=== PATIENT | male | born 1960 | race Caucasian/White ===

== ENCOUNTER 2021-11-02 15:12 | Inpatient (IN) | payer OTHER ==
[~2021-11-02] VITALS: Ht 175.3 cm; Wt 77.1 kg
[2021-11-02 15:12] VITALS: BP 105/63
[2021-11-02] MEDS ORDERED: FUROSEMIDE 40 MG/4 ML VIAL IVP ONE (15:40)
[2021-11-02 16:08] LABS: BASOPHILS % (AUTO) 0.4 % (0.0-2.0); EOSINOPHILS % (AUTO) 0.5 % (0.0-4.0); HEMATOCRIT 26.6 % (36-52); HEMOGLOBIN 8.5 g/dL (12.0-18.0); LYMPHOCYTES # (AUTO) 0.6 K/uL (2.0-11.5); LYMPHOCYTES % (AUTO) 9.9 % (20.5-51.1); MEAN CORPUSCULAR HEMOGLOBIN 25 pg (27-31); MEAN CORPUSCULAR HGB CONC 32 g/dL (33-37); MEAN CORPUSCULAR VOLUME 77.6 fL (80-94); MONOCYTES # (AUTO) 0.6 K/uL (0.8-1.0); NEUTROPHILS # (AUTO) 4.6 K/uL (1.8-7.7); NEUTROPHILS % (AUTO) 79.2 % (42.2-75.2); PLATELET COUNT (AUTO) 67 K/uL (140-450); RED BLOOD CELL COUNT(AUTO) 3.43 MIL/uL (4.20-6.10); RED CELL DISTRIBUTION WIDTH 21.6 % (11.6-13.7); WHITE BLOOD COUNT (AUTO) 5.7 K/uL (4.8-10.8)
[2021-11-02 16:37] LABS: ALBUMIN 2.2 g/dL (3.4-5.0); ANION GAP 11.6 (8-16); CARBON DIOXIDE 26.1 mmol/L (21-32); CREATININE 0.7 mg/dL (0.6-1.3); POTASSIUM 3.7 mmol/L (3.5-5.1); TOTAL BILIRUBIN 1.5 mg/dL (0.0-1.0)
[2021-11-02] MEDS ORDERED: METF-350 PO (19:04)
[2021-11-02] MEDS ORDERED: CLOP75TA55 PO (19:05)
[2021-11-02] MEDS ORDERED: LOSA100T1 PO (19:05)
[2021-11-02] MEDS ORDERED: DOCUSATE SODIUM 100 MG GELCAP PO PRN (19:25)
[2021-11-02] MEDS ORDERED: ZOLPIDEM 5 MG TAB PO PRN (19:25)
[2021-11-02] MEDS ORDERED: guaiFENesin DM 200/20 MG-10 ML 10 ML UDC PO PRN (19:25)
[2021-11-02] MEDS ORDERED: ONDANSETRON 4 MG/2 ML VIAL IM/IVP PRN (19:25)
[2021-11-02] MEDS ORDERED: ACETAMINOPHEN 325 MG TAB PO PRN (19:25)
[2021-11-02 19:55] LABS: CHOL/HDL RATIO 3.1 (1-4.5); FREE T4 (FREE THYROXINE) 1.1 ng/dL (0.76-1.46); MAGNESIUM 1.2 mg/dL (1.8-2.4); THYROID STIMULATING HORMONE 7.6 uIU/mL (0.34-3.74)
[2021-11-02 21:06] LABS: PROTHROMBIN TIME 13.9 secs (10.8-13.4)
[2021-11-02] MEDS: FUROSEMIDE 20 MG/2 ML VIAL IVP SCH (21:45)
[2021-11-02] MEDS: HYDROcodone/APAP 7.5/325 MG 1 TAB PO PRN (21:46)
[2021-11-03] VITALS (11 sets, daily range): BP systolic 90–109; BP diastolic 54–67
[2021-11-03 04:09] LABS: APPEARANCE,URINE CLEAR (CLEAR); BILIRUBIN,URINE NEGATIVE (NEGATIVE); BLOOD, URINE 1+ (NEGATIVE); COLOR,URINE YELLOW (YELLOW); LEUKOCYTE ESTERASE ,URINE NEGATIVE (NEGATIVE); NITRITE, URINE NEGATIVE (NEGATIVE); PH,URINE 5.5 (5.0-9.0); UGLUCOSE NEGATIVE (NEGATIVE)
[2021-11-03 04:20] LABS: BARBITURATE, URINE NEGATIVE ng/ml (NEG <=200); BENZODIAZEPINE, URINE NEGATIVE ng/mL (NEG <=200); CANNABINOID, URINE NEGATIVE ng/mL (NEG <=50); COCAINE, URINE NEGATIVE ng/mL (NEG <=300); OPIATE, URINE POSITIVE ng/mL (NEG <=2000); PHENCYCLIDINE SCREEN,URINE NEGATIVE ng/mL (NEG <=25)
[2021-11-03 04:23] LABS: RBC,URINE 0-5 /HPF (0-5); WBC,URINE 0-5 /HPF (0-5)
[2021-11-03 07:16] LABS: BASOPHILS % (AUTO) 0.6 % (0.0-2.0); EOSINOPHILS # (AUTO) 0.1 K/uL (0-0.4); HEMATOCRIT 25.4 % (36-52); HEMOGLOBIN 7.9 g/dL (12.0-18.0); LYMPHOCYTES # (AUTO) 0.5 K/uL (2.0-11.5); LYMPHOCYTES % (AUTO) 12.9 % (20.5-51.1); MEAN CORPUSCULAR HEMOGLOBIN 25 pg (27-31); MEAN CORPUSCULAR HGB CONC 31 g/dL (33-37); MEAN CORPUSCULAR VOLUME 79.1 fL (80-94); MONOCYTES # (AUTO) 0.4 K/uL (0.8-1.0); MONOCYTES % (AUTO) 10.9 % (1.7-9.3); NEUTROPHILS # (AUTO) 2.7 K/uL (1.8-7.7); NEUTROPHILS % (AUTO) 73.6 % (42.2-75.2); PLATELET COUNT (AUTO) 62 K/uL (140-450); RED BLOOD CELL COUNT(AUTO) 3.21 MIL/uL (4.20-6.10); RED CELL DISTRIBUTION WIDTH 22.2 % (11.6-13.7); WHITE BLOOD COUNT (AUTO) 3.7 K/uL (4.8-10.8)
[2021-11-03 08:16] LABS: ANION GAP 13.3 (8-16); CARBON DIOXIDE 28.2 mmol/L (21-32); CREATININE 0.6 mg/dL (0.6-1.3); POTASSIUM 3.5 mmol/L (3.5-5.1)
[2021-11-03] MEDS: HYDROcodone/APAP 7.5/325 MG 1 TAB PO PRN ×2 (09:40→20:20)
[2021-11-03] MEDS: FUROSEMIDE 20 MG/2 ML VIAL IVP SCH ×2 (09:41→20:20)
[2021-11-03] MEDS: PANTOPRAZOLE 40 MG TABEC PO SCH (09:41)
[2021-11-03] MEDS ORDERED: DEXTROSE 50% 50 ML SYR IVP PRN (19:40)
[2021-11-03] MEDS: BLOOD GLUCOSE MONITORING 1 DEV DEV FS SCH (21:03)
[2021-11-03 23:59] LABS: GLUCOSE,BODY FLUID 118 mg/dL
[2021-11-04] VITALS: BP 92/63
[2021-11-04 00:12] LABS: ALBUMIN,BODY FLUID 0.7 g/dL; LDH,BODY FLUID 47 U/L
[2021-11-04 00:18] LABS: APPEARANCE,SPUN,BODY FLUID CLEAR (CLEAR); APPEARANCE,UNSPUN,BODY FLUID CLEAR (CLEAR); COLOR,BODY FLUID LT YELLOW (LT YELLOW)
[2021-11-04 00:26] LABS: TOTAL VOLUME,BODY FLUID 8400 mL
[2021-11-04 00:48] LABS: RBC, BODY FLUID 1742 /cu. mm.; WBC, BODY FLUID 35 /cu. mm.
[2021-11-04 00:49] LABS: POLYNUCLEAR, BODY FLUID 70 %
[2021-11-04 00:50] LABS: LIPASE,BODY FLUID < 6 U/L
[2021-11-04 04:00] VITALS: BP 105/70
[2021-11-04 06:55] LABS: BASOPHILS % (AUTO) 0.6 % (0.0-2.0); EOSINOPHILS # (AUTO) 0.1 K/uL (0-0.4); EOSINOPHILS % (AUTO) 2.7 % (0.0-4.0); HEMATOCRIT 26.7 % (36-52); HEMOGLOBIN 8.4 g/dL (12.0-18.0); LYMPHOCYTES # (AUTO) 0.6 K/uL (2.0-11.5); LYMPHOCYTES % (AUTO) 21.4 % (20.5-51.1); MEAN CORPUSCULAR HEMOGLOBIN 25 pg (27-31); MEAN CORPUSCULAR HGB CONC 31 g/dL (33-37); MONOCYTES # (AUTO) 0.4 K/uL (0.8-1.0); MONOCYTES % (AUTO) 13.8 % (1.7-9.3); NEUTROPHILS # (AUTO) 1.6 K/uL (1.8-7.7); NEUTROPHILS % (AUTO) 61.5 % (42.2-75.2); PLATELET COUNT (AUTO) 54 K/uL (140-450); RED BLOOD CELL COUNT(AUTO) 3.38 MIL/uL (4.20-6.10); RED CELL DISTRIBUTION WIDTH 21.5 % (11.6-13.7); WHITE BLOOD COUNT (AUTO) 2.7 K/uL (4.8-10.8)
[2021-11-04 07:04] LABS: ANION GAP 9.4 (8-16); CARBON DIOXIDE 27.7 mmol/L (21-32); CREATININE 0.6 mg/dL (0.6-1.3); POTASSIUM 3.1 mmol/L (3.5-5.1)
[2021-11-04] MEDS: BLOOD GLUCOSE MONITORING 1 DEV DEV FS SCH ×3 (07:06→16:30)
[2021-11-04 08:00] VITALS: BP 108/69
[2021-11-04] MEDS: PANTOPRAZOLE 40 MG TABEC PO SCH (09:19)
[2021-11-04] MEDS: HYDROcodone/APAP 7.5/325 MG 1 TAB PO PRN ×2 (09:19→17:49)
[2021-11-04] MEDS: FUROSEMIDE 20 MG/2 ML VIAL IVP SCH ×2 (09:20→21:00)
[2021-11-04] MEDS: POTASSIUM CHLORIDE 10 MEQ TABER PO PRN (09:37)
[2021-11-04 11:36] VITALS: BP 104/62
[2021-11-04 18:00] VITALS: BP 90/55
[2021-11-04 20:00] VITALS: BP 90/54
[2021-11-05] VITALS: BP 112/64
[2021-11-05 04:00] VITALS: BP 108/64
[2021-11-05] MEDS: BLOOD GLUCOSE MONITORING 1 DEV DEV FS SCH ×3 (06:34→16:05)
[2021-11-05 07:09] LABS: ANION GAP 7.7 (8-16); CARBON DIOXIDE 30.6 mmol/L (21-32); CREATININE 0.6 mg/dL (0.6-1.3); POTASSIUM 3.3 mmol/L (3.5-5.1)
[2021-11-05 07:35] LABS: BASOPHILS % (AUTO) 0.7 % (0.0-2.0); EOSINOPHILS # (AUTO) 0.1 K/uL (0-0.4); LYMPHOCYTES # (AUTO) 0.7 K/uL (2.0-11.5); MEAN CORPUSCULAR HEMOGLOBIN 25 pg (27-31); MEAN CORPUSCULAR HGB CONC 31 g/dL (33-37); MEAN CORPUSCULAR VOLUME 79.3 fL (80-94); MONOCYTES # (AUTO) 0.3 K/uL (0.8-1.0); MONOCYTES % (AUTO) 14.7 % (1.7-9.3); NEUTROPHILS # (AUTO) 1.2 K/uL (1.8-7.7); NEUTROPHILS % (AUTO) 52.6 % (42.2-75.2); PLATELET COUNT (AUTO) 66 K/uL (140-450); RED BLOOD CELL COUNT(AUTO) 3.66 MIL/uL (4.20-6.10); WHITE BLOOD COUNT (AUTO) 2.4 K/uL (4.8-10.8)
[2021-11-05 08:00] VITALS: BP 113/72
[2021-11-05] MEDS: PANTOPRAZOLE 40 MG TABEC PO SCH (08:22)
[2021-11-05] MEDS: FUROSEMIDE 20 MG/2 ML VIAL IVP SCH ×2 (08:22→21:08)
[2021-11-05] MEDS: POTASSIUM CHLORIDE 10 MEQ TABER PO PRN (09:01)
[2021-11-05 12:00] VITALS: BP 121/77
[2021-11-05] MEDS: HYDROcodone/APAP 7.5/325 MG 1 TAB PO PRN (14:17)
[2021-11-05 20:00] VITALS: BP 105/74
[2021-11-06 04:00] VITALS: BP 107/69
[2021-11-06] MEDS: BLOOD GLUCOSE MONITORING 1 DEV DEV FS SCH ×2 (06:38→11:54)
[2021-11-06 06:48] LABS: ANION GAP 8.3 (8-16); CARBON DIOXIDE 31.9 mmol/L (21-32); CREATININE 0.7 mg/dL (0.6-1.3); POTASSIUM 3.2 mmol/L (3.5-5.1)
[2021-11-06 06:53] LABS: BASOPHILS % (AUTO) 0.8 % (0.0-2.0); EOSINOPHILS # (AUTO) 0.1 K/uL (0-0.4); EOSINOPHILS % (AUTO) 2.8 % (0.0-4.0); HEMATOCRIT 25.7 % (36-52); LYMPHOCYTES # (AUTO) 0.5 K/uL (2.0-11.5); LYMPHOCYTES % (AUTO) 26.8 % (20.5-51.1); MEAN CORPUSCULAR HEMOGLOBIN 25 pg (27-31); MEAN CORPUSCULAR HGB CONC 31 g/dL (33-37); MEAN CORPUSCULAR VOLUME 78.8 fL (80-94); MONOCYTES # (AUTO) 0.4 K/uL (0.8-1.0); MONOCYTES % (AUTO) 18.5 % (1.7-9.3); NEUTROPHILS % (AUTO) 51.1 % (42.2-75.2); PLATELET COUNT (AUTO) 58 K/uL (140-450); RED BLOOD CELL COUNT(AUTO) 3.26 MIL/uL (4.20-6.10); RED CELL DISTRIBUTION WIDTH 21.7 % (11.6-13.7)
[2021-11-06 06:58] LABS: WHITE BLOOD COUNT (AUTO) 1.9 K/uL (4.8-10.8)
[2021-11-06] MEDS: FUROSEMIDE 20 MG/2 ML VIAL IVP SCH ×2 (09:00→09:59)
[2021-11-06] MEDS: PANTOPRAZOLE 40 MG TABEC PO SCH (09:17)
[2021-11-06] MEDS: POTASSIUM CHLORIDE 10 MEQ TABER PO PRN (09:17)
[2021-11-06] MEDS ORDERED: FURO-570 PO ×2 (09:59→11:51)
[2021-11-06] MEDS ORDERED: FUROSEMIDE 40 MG TAB PO SCH ×2 (11:00→17:00)
[2021-11-06] MEDS: INSULIN LISPRO SLIDING SCALE 100 UNITS/ML VIAL SUBQ PRN ×2 (11:53→11:58)
[2021-11-06 12:00] VITALS: BP 105/67
[2021-11-06 14:14] VITALS: BP 105/67
== END 2021-11-06 16:25 | disposition home or self-care (01) | DRG 280 ==
LOC: MED 15:12 → MTU 19:09
PROVIDERS: ADMIT Family Medicine; ATTEND Family Medicine
PROC: 0W9G3ZZ Drainage of Peritoneal Cavity, Percutaneous Approach (ICD-10-PCS; principal; 2021-11-02)
DX: I11.0 Hypertensive heart disease with heart failure (principal); I21.4 Non-ST elevation (NSTEMI) myocardial infarction; I50.43 Acute on chronic combined systolic (congestive) and diastolic (congestive) heart failure; G93.41 Metabolic encephalopathy; E43 Unspecified severe protein-calorie malnutrition; R18.8 Other ascites; N39.0 Urinary tract infection, site not specified; E87.1 Hypo-osmolality and hyponatremia; D61.818 Other pancytopenia; Z20.822 Contact with and (suspected) exposure to COVID-19; F10.20 Alcohol dependence, uncomplicated; Y90.9 Presence of alcohol in blood, level not specified; K40.20 Bilateral inguinal hernia, without obstruction or gangrene, not specified as recurrent; E87.6 Hypokalemia; K74.60 Unspecified cirrhosis of liver; F17.200 Nicotine dependence, unspecified, uncomplicated; J44.9 Chronic obstructive pulmonary disease, unspecified; E78.5 Hyperlipidemia, unspecified; D63.8 Anemia in other chronic diseases classified elsewhere; Z79.84 Long term (current) use of oral hypoglycemic drugs; Z79.899 Other long term (current) drug therapy; Z68.25 Body mass index [BMI] 25.0-25.9, adult
CPT/HCPCS: 36415; 49083; 71045; 76700; 80048; 80053; 80305; 81001; 82150; 82945; 82948; 83036; 83615; 83690; 83735; 83880; 84100; 84157; 84436; 84439; 84443; 84479; 84484; 85025; 85610; 85730; 87070; 87075; 87081; 87205; 89051; 93005; 96374; 99285; J1940; J2001; Q0092; Q9967

== ENCOUNTER 2022-10-08 12:09 | Inpatient (IN) | payer OTHER ==
[~2022-10-08] VITALS: Ht 170.2 cm; Wt 73.5 kg
[~2022-10-08 12:09] MED LIST: FURO-570 PO
[2022-10-08 12:12] VITALS: BP 106/69
[2022-10-08] MEDS ORDERED: ALBUTEROL 0.083% 2.5 MG/3 ML NEBU INH ONE (12:20)
[2022-10-08] MEDS ORDERED: methylPREDNISolone SS 125 MG/2 ML VIAL IVP ONE (12:20)
[2022-10-08] MEDS ORDERED: IPRATROPIUM 0.02% 0.5 MG/2.5 ML NEBU INH ONE (12:20)
[2022-10-08] MEDS ORDERED: FUROSEMIDE 40 MG/4 ML VIAL IVP ONE (12:20)
--- NOTE | 2022-10-08 12:30 | NUR ---
[facility] THERAPY AND RESPIRATORY DRUGS GIVEN ORDERED
[2022-10-08 13:10] VITALS: BP 111/66
[2022-10-08 13:30] LABS: ALBUMIN 1.9 g/dL (3.4-5.0); ANION GAP 7.4 (8-16); CREATININE 0.7 mg/dL (0.6-1.3); POTASSIUM 3.4 mmol/L (3.5-5.1); TOTAL BILIRUBIN 5.2 mg/dL (0.0-1.0)
[2022-10-08] MEDS ORDERED: KCL 20 MEQ IN 100 mL PREMIX 200 ML IV ONE (13:40)
[2022-10-08 13:49] LABS: PROTHROMBIN TIME 13.6 secs (10.8-13.4)
[2022-10-08 13:53] LABS: BASOPHILS % (AUTO) 1.3 % (0.0-2.0); EOSINOPHILS # (AUTO) 0.1 K/uL (0-0.4); EOSINOPHILS % (AUTO) 2.8 % (0.0-4.0); HEMATOCRIT 26.5 % (36-52); HEMOGLOBIN 8.8 g/dL (12.0-18.0); LYMPHOCYTES # (AUTO) 0.6 K/uL (2.0-11.5); MEAN CORPUSCULAR HEMOGLOBIN 28 pg (27-31); MEAN CORPUSCULAR HGB CONC 33 g/dL (33-37); MEAN CORPUSCULAR VOLUME 82.9 fL (80-94); MONOCYTES # (AUTO) 0.6 K/uL (0.8-1.0); NEUTROPHILS # (AUTO) 2.5 K/uL (1.8-7.7); NEUTROPHILS % (AUTO) 64.9 % (42.2-75.2); PLATELET COUNT (AUTO) 138 K/uL (140-450); RED CELL DISTRIBUTION WIDTH 23.7 % (11.6-13.7); WHITE BLOOD COUNT (AUTO) 3.8 K/uL (4.8-10.8)
[2022-10-08] MEDS ORDERED: ASPIRIN 81 MG TAB.CHEW PO ONE (15:00)
--- NOTE | 2022-10-08 15:00 | NUR ---
PT AGREED TO STAY IN BED AND NOT SIT ON SIDE OF GURNEY WHILE BEING SOB AND WEAK. TOLERATING BIPAP. NO FURTHER NOSEBLEED
[2022-10-08] MEDS ORDERED: cefTRIAXone 1,000 MG VIAL ONE (15:37)
[2022-10-08] MEDS ORDERED: ALBUTEROL SULFATE/IPRATROPIU 3 ML SOL IH PRN (17:55)
--- NOTE | 2022-10-08 18:33 | NUR ---
will endorse to hammerer rn for continuity of care
--- NOTE | 2022-10-08 19:45 | NUR ---
RECEIVED PT IN STABLE CONDITION.HR IS ST.KCL INFUSING .F/C PATENT AND DRAINING BLOODY URINE.CALL LIGHT WITHIN REACH.RESP.UNLABORED W/O2.WILL CONT.MONITORING.
[2022-10-08 20:00] VITALS: BP 96/59
[2022-10-08] MEDS: ALBUTEROL SULFATE/IPRATROPIU 3 ML SOL IH SCH (20:05)
[2022-10-08 20:29] LABS: ANION GAP 11.8 (8-16); CARBON DIOXIDE 32.8 mmol/L (21-32); CREATININE 0.9 mg/dL (0.6-1.3); POTASSIUM 3.6 mmol/L (3.5-5.1)
[2022-10-08 20:44] LABS: CHOL/HDL RATIO 2.3 (1-4.5); MAGNESIUM 1.3 mg/dL (1.8-2.4); PHOSPHORUS 2.9 mg/dL (2.5-4.9); THYROID STIMULATING HORMONE 4.86 uIU/mL (0.34-3.74)
[2022-10-08 21:10] LABS: FREE T4 (FREE THYROXINE) 0.98 ng/dL (0.76-1.46)
[2022-10-08] MEDS: PIPERACILLIN/TAZOBACTAM 3.375 GM in DEXTROSE 5% 50 ML IV SCH (21:28)
[2022-10-08] MEDS: FUROSEMIDE 40 MG/4 ML VIAL IVP SCH (21:29)
[2022-10-08] MEDS: DOCUSATE SODIUM 100 MG GELCAP PO SCH (21:30)
[2022-10-08 22:25] LABS: PROTHROMBIN TIME 13.3 secs (10.8-13.4)
[2022-10-09] VITALS: BP 99/66
--- NOTE | 2022-10-09 | NUR ---
RESP.UNLABORED W/BIPAB AT THIS TIME.SL PATENT.NO DISTRESS NOTED AT PRESENT TIME.HR IS SR.CALL LIGHT IN REACH.
[2022-10-09 04:00] VITALS: BP 113/52
--- NOTE | 2022-10-09 04:00 | NUR ---
HE IS ON 10 L O2 VIA NR.NO SOB NOTED.HR IS SR.HAD DARK YELLOW(ORANGE)COLOR URINE.
[2022-10-09] MEDS: PIPERACILLIN/TAZOBACTAM 3.375 GM in DEXTROSE 5% 50 ML IV SCH ×3 (04:54→20:10)
[2022-10-09 06:07] LABS: BASOPHILS % (AUTO) 0.2 % (0.0-2.0); EOSINOPHILS % (AUTO) 0.1 % (0.0-4.0); HEMATOCRIT 26.9 % (36-52); HEMOGLOBIN 8.8 g/dL (12.0-18.0); LYMPHOCYTES # (AUTO) 0.3 K/uL (2.0-11.5); LYMPHOCYTES % (AUTO) 3.4 % (20.5-51.1); MEAN CORPUSCULAR HEMOGLOBIN 27 pg (27-31); MEAN CORPUSCULAR HGB CONC 33 g/dL (33-37); MEAN CORPUSCULAR VOLUME 84.1 fL (80-94); MONOCYTES # (AUTO) 0.4 K/uL (0.8-1.0); MONOCYTES % (AUTO) 4.7 % (1.7-9.3); NEUTROPHILS # (AUTO) 7.2 K/uL (1.8-7.7); NEUTROPHILS % (AUTO) 91.6 % (42.2-75.2); PLATELET COUNT (AUTO) 137 K/uL (140-450); RED BLOOD CELL COUNT(AUTO) 3.19 MIL/uL (4.20-6.10); RED CELL DISTRIBUTION WIDTH 23.7 % (11.6-13.7); WHITE BLOOD COUNT (AUTO) 7.8 K/uL (4.8-10.8)
[2022-10-09 06:36] LABS: MAGNESIUM 1.5 mg/dL (1.8-2.4); PHOSPHORUS 2.9 mg/dL (2.5-4.9)
[2022-10-09 06:47] LABS: CARBON DIOXIDE 34.8 mmol/L (21-32); CREATININE 0.7 mg/dL (0.6-1.3); POTASSIUM 3.8 mmol/L (3.5-5.1)
--- NOTE | 2022-10-09 07:10 | NUR ---
ASSUMED CONTINUITY OF CARE. INITIAL ASSESSMENT DONE. KEEP COMFORTABLE ON BED. ELEVATED BLE WITH PILLOWS. FALL PRECAUTION APPLIED. CALL LIGHT WITHIN REACH.
--- NOTE | 2022-10-09 07:12 | NUR ---
ENDORSED TO AM NURSE IN STABLE CONDITION.
[2022-10-09 08:00] VITALS: BP 100/57
--- NOTE | 2022-10-09 08:00 | NUR ---
Patient's Plan of Care was discussed and reviewed with KYE: ALLISON
--- NOTE | 2022-10-09 08:25 | NUR ---
RE-CHECKED BP 100/57. NO SOB, NOTED. WILL MONITOR.
--- NOTE | 2022-10-09 08:31 | NUR ---
PAGED DR. DEVRIES INFORMED OF BP 100/57 AND ASKED IF LASIX 40 MG IVP WILL BE GIVEN. DR. DEVRIES ORDERED TO HOLD LASIX 40 MG IVP DOSE DUE TO LOW BP. INFORMED CHARGE NURSE YAMILET GARCIA.
[2022-10-09] MEDS: FUROSEMIDE 40 MG/4 ML VIAL IVP SCH ×2 (09:00→20:10)
[2022-10-09] MEDS: DOCUSATE SODIUM 100 MG GELCAP PO SCH ×2 (09:01→20:10)
--- NOTE | 2022-10-09 09:24 | NUR ---
RESPIRATORY THERAPIST CAME IN AND PUT BIPAP ON PT..
[2022-10-09] MEDS: PANTOPRAZOLE 40 MG INJ VIAL IVP SCH (09:25)
[2022-10-09] MEDS: methylPREDNISolone SS 40 MG/ML VIAL IVP SCH ×2 (09:25→20:10)
--- NOTE | 2022-10-09 09:56 | NUR ---
DR. DEVRIES CAME AND SEEN PT.. RT ON BEDSIDE DOING ABG.
[2022-10-09 12:00] VITALS: BP 100/64
[2022-10-09] MEDS ORDERED: MAGNESIUM OXIDE 400 MG TAB PO SCH (12:00)
--- NOTE | 2022-10-09 13:00 | NUR ---
WOUND CARE EVALUATION NOTES: REASON FOR EVALUATION: SACRAL WOUND WOUND ASSESSMENT COMPLETED ON THIS 61 Y/O MALE ADMITTED TO [facility] FOR SOB, ASTHMA EXACERBATION, PLEURAL EFFUSION. PATIENT IS FROM [place]. PAST MEDICAL HISTORY INCLUDES COPD, ASTHMA, CHRONIC RESP FAILURE, HOME O2, CIRRHOSIS. ALL ABOVE INFORMATION WAS OBTAINED FROM THE ADMISSION H&P. PATIENT IS AAOX3, VERBAL. SKIN IS WARM TO TOUCH. REQUIRES ASSISTANCE WITH TURNING. PLAN OF CARE AND PRESSURE PREVENTATIVE MEASURES DISCUSSED WITH PATIENT AND PRIMARY RN. PATIENT REINFORCEMENT NEEDED. PATIENT ADMITTED WITH PRESSURE ULCER TO [facility]. COMORBIDITIES RELATED TO FURTHER SKIN BREAKDOWN SUCH IMPAIRED MOBILITY. INTEGUMENTARY: - SACRALCOCCYX PRESSURE ULCER STAGE II 1 X 1 X 0.1 CM. WOUND BED PINK, NO SLOUGH OR ESCHAR, NO DRAINAGE, NO ODOR. PERIWOUND RED, INTACT. RECOMMENDATIONS: - SACRALCOCCYX PRESSURE ULCER STAGE II: CLEANSE WITH NS, PAT DRY, AND APPLY FOAM DRESSING DAILY AND PRN IF SOILED. - OFFLOAD BILATERAL HEELS BY PLACING BILATERAL HEEL PROTECTORS. - TURN AND REPOSITION PATIENT Q2H TO LEFT AND RIGHT SIDE TO OFFLOAD SACRALCOCCYX. - ASSESS AND MONITOR SKIN CONDITION DURING POSITION CHANGE. PLEASE PAY ATTENTION TO SACRALCOCCYX AND HEELS. - KEEP SKIN DRY AND CLEAN AT ALL TIMES. - RD CONSULT RECOMMENDATIONS DISCUSSED WITH PRIMARY RN. WILL FOLLOW-UP PATIENT Q7-10 DAYS AND PRN. PLEASE CONTACT WOUND CARE NURSE FOR ANY CONCERNS AND CHANGES IN WOUND CONDITION.
[2022-10-09] MEDS: ALBUTEROL SULFATE/IPRATROPIU 3 ML SOL IH SCH ×2 (14:31→21:28)
[2022-10-09 15:33] LABS: APPEARANCE,URINE CLEAR (CLEAR); BILIRUBIN,URINE 3+ (NEGATIVE); BLOOD, URINE 3+ (NEGATIVE); COLOR,URINE YELLOW (YELLOW); LEUKOCYTE ESTERASE ,URINE 1+ (NEGATIVE); NITRITE, URINE POSITIVE (NEGATIVE); PH,URINE 6.5 (5.0-9.0); UGLUCOSE NEGATIVE (NEGATIVE)
[2022-10-09 15:58] LABS: BARBITURATE, URINE NEGATIVE ng/ml (NEG <=200); BENZODIAZEPINE, URINE NEGATIVE ng/mL (NEG <=200); CANNABINOID, URINE NEGATIVE ng/mL (NEG <=50); COCAINE, URINE NEGATIVE ng/mL (NEG <=300); OPIATE, URINE NEGATIVE ng/mL (NEG <=2000); PHENCYCLIDINE SCREEN,URINE NEGATIVE ng/mL (NEG <=25)
[2022-10-09 16:00] VITALS: BP 106/68
[2022-10-09 16:21] LABS: RBC,URINE TOO NUMEROUS TO COUN /HPF (0-5); WBC,URINE 80-100 /HPF (0-5)
[2022-10-09 16:22] LABS: TRICHOMONAS,URINE None Seen /HPF (None Seen); YEAST,URINE None Seen /HPF (None Seen)
--- NOTE | 2022-10-09 18:53 | NUR ---
DR. GEORGE CAME, SPOKE TO PT. AT BEDSIDE.
--- NOTE | 2022-10-09 19:19 | NUR ---
PT. IN STABLE CONDITION. NO RESPIRATORY DISTRESS NOTED. WILL ENDORSE TO TAPE MAKER NURSE FOR CONTINUITY OF CARE.
--- NOTE | 2022-10-09 19:30 | NUR ---
RECEIVED REPORT FROM DAY SHIFT NURSE FOR CONTINUITY OF CARE. PT IS AWAKE AND ALERT. PT IS ON OXYMIZER 10L SATING 98%. PT HAS RIGHT FOREARM 20 GAUGE SALINE LOCK. PT NOT IN ANY DISTRESS. POC DISCUSSED. WILL CONTINUE TO MONITOR THE PT.
[2022-10-09 20:00] VITALS: BP 101/57
--- NOTE | 2022-10-09 23:21 | NUR ---
PT IS SLEEPING COMFORTABLY IN BED. PT IS ON BI-PAP SATING 96%. NOT IN ANY DISTRESS. WILL CONTINUE TO MONITOR THE PT.
[2022-10-10] VITALS: BP 98/65
[2022-10-10 04:00] VITALS: BP 116/72
--- NOTE | 2022-10-10 04:50 | NUR ---
PT IV ON RIGHT FORE ARM 20 GAUGE BECAME INFILTRATED. IT WAS REMOVED. CATHETER INTACT. NEW IV INSERTED ON RIGHT AC 20 GAUGE.
[2022-10-10] MEDS: PIPERACILLIN/TAZOBACTAM 3.375 GM in DEXTROSE 5% 50 ML IV SCH ×3 (05:29→21:01)
--- NOTE | 2022-10-10 06:45 | NUR ---
PT REQUESTED TO BE PLACED ON BIPAP. PT IS TOLERATING BIPAP WELL. NO DISTRESS NOTED.
--- NOTE | 2022-10-10 07:12 | NUR ---
ENDORSED PT TO DAY SHIFT RN FOR CONTINUITY OF CARE. PT IS STABLE.
[2022-10-10 08:00] VITALS: BP 100/58
--- NOTE | 2022-10-10 08:00 | NUR ---
GOT REPORT FROM THE NIGHT NURSE, NO SOB PT RESTING IN BED.[id number]
[2022-10-10] MEDS: FUROSEMIDE 40 MG/4 ML VIAL IVP SCH ×2 (09:18→21:00)
[2022-10-10] MEDS: PANTOPRAZOLE 40 MG INJ VIAL IVP SCH (09:18)
[2022-10-10] MEDS: methylPREDNISolone SS 40 MG/ML VIAL IVP SCH (09:19)
[2022-10-10] MEDS: DOCUSATE SODIUM 100 MG GELCAP PO SCH ×2 (09:19→21:00)
[2022-10-10] MEDS: MAGNESIUM OXIDE 400 MG TAB PO SCH (09:19)
--- NOTE | 2022-10-10 09:45 | NUR ---
PATIENT HAS BEEN SCREENED AND CATEGORIZED HIGH NUTRITION RISK. PATIENT WILL BE SEEN WITHIN 1-2 DAYS OF ADMISSION. 10/08/22-10/10/[address]
[2022-10-10 12:00] VITALS: BP 96/58
[2022-10-10] MEDS: ALBUTEROL SULFATE/IPRATROPIU 3 ML SOL IH SCH ×2 (12:19→20:30)
--- NOTE | 2022-10-10 13:10 | NUR ---
PT TOOK BIPAP OFF TO EAT LUNCH. PT CURRENTLY ON NASAL CANNULA 6L. [id number] 100%. BREATH SOUNDS ARE DIMINISHED AND DIDN'T WANT BREATHING TREATMENT AT THIS TIME. HE UNDERSTANDS HIS WOB INCREASES WITHOUT THE BIPAP ON BUT CONTINUES TO TAKE IT OFF. BIPAP CURRENTLY NEXT TO HIM HE EATS LUNCH. WILL CONTINUE TO MONITOR.
[2022-10-10] MEDS: HYDROcodone/APAP 7.5/325 MG 1 TAB PO PRN (14:49)
[2022-10-10 16:00] VITALS: BP 97/60
--- NOTE | 2022-10-10 16:49 | NUR ---
CHECKED ON PT. SWITCHED THE NASAL CANNULA TO THE GREEN CURAPLEX 15L NASAL CANNULA. HE LIKES THIS AN ALTERNATIVE FOR EATING. BIPAP CURRENTLY ON AND HE IS RESTING COMFORTABLY. WILL CONTINUE TO MONITOR.
--- NOTE | 2022-10-10 18:27 | NUR ---
MANDI 22 ON RIGHT MID ARM C/O OTHER IV LINE KEEP BEEPING WHEN PT REMOVES THE ARM.[id number]
--- NOTE | 2022-10-10 19:38 | NUR ---
GAVE REPORT TO THE NIGHT NURSE.[id number]
--- NOTE | 2022-10-10 19:38 | NUR ---
RECIEVED PT WITH OUT FEEDING . Addendum: 10/10/22 at 2036 by Robyn Boyle RN PER DR. STARKS RESUME FEEDING AT HALF SPEED AND REFER TO DR. SANTILLAN - ALLIE CARRY OUT .
--- NOTE | 2022-10-10 19:45 | NUR ---
10/10/22 RD INITIAL ASSESSMENT COMPLETED. PLEASE REFER TO NUTRITION ASSESSMENT UNDER CARE ACTIVITY FOR ESTIMATED NUTRITIONAL NEEDS. 1. CONTINUE CARDIAC DIET TOLERATED 2. RECOMMEND 1 ENSURE & 1 JOSIAH/DAY TO PROMOTE WOUND HEALING 3. MONITOR PO INTAKE 4. RD TO FOLLOW-UP 3-5 DAYS, MODERATE RISK JONEL JEFFERY RD
[2022-10-10 20:00] VITALS: BP 98/69
--- NOTE | 2022-10-10 22:00 | NUR ---
BP RE CHECK 90/59
[2022-10-11] VITALS (7 sets, daily range): BP systolic 94–146; BP diastolic 52–91
--- NOTE | 2022-10-11 02:00 | NUR ---
ON BIPAP , O2 SAT WNL , NO S/SX OF ACUTE DISTRESS NOTED , CALL LIGHT WITHIN REACH
--- NOTE | 2022-10-11 05:00 | NUR ---
SLEEPING , EASILY AWAKEABLE BY SOUNDS , HE REFUSE AM MOE , BUT HE AGREE TO CHANGE NEW GOWN . Addendum: 10/11/22 at 0658 by Robyn Boyle RN THE WORD MOE IN THE ABOVE NURSE'S NOTE IS AN ERROR ENTRY , INSTEAD OF CARE - [id number]
[2022-10-11] MEDS: PIPERACILLIN/TAZOBACTAM 3.375 GM in DEXTROSE 5% 50 ML IV SCH ×3 (05:03→20:49)
--- NOTE | 2022-10-11 07:30 | NUR ---
ASSUMED CONTINUITY OF CARE. INITIAL ASSESSMENT DONE. KEEP COMFORTABLE ON BED. FALL PRECAUTION APPLIED. CALL LIGHT WITHIN REACH.
--- NOTE | 2022-10-11 07:55 | NUR ---
endorsed pt on bi pap , o2 sat 97 % , call light within reach .
[2022-10-11 08:00] LABS: HEMATOCRIT 28.6 % (36-52); HEMOGLOBIN 9.3 g/dL (12.0-18.0); LYMPHOCYTES # (AUTO) 0.4 K/uL (2.0-11.5); LYMPHOCYTES % (AUTO) 3.4 % (20.5-51.1); MEAN CORPUSCULAR HEMOGLOBIN 28 pg (27-31); MEAN CORPUSCULAR HGB CONC 32 g/dL (33-37); MEAN CORPUSCULAR VOLUME 85.4 fL (80-94); MONOCYTES # (AUTO) 1.1 K/uL (0.8-1.0); NEUTROPHILS # (AUTO) 9.9 K/uL (1.8-7.7); NEUTROPHILS % (AUTO) 86.6 % (42.2-75.2); PLATELET COUNT (AUTO) 181 K/uL (140-450); RED BLOOD CELL COUNT(AUTO) 3.35 MIL/uL (4.20-6.10); RED CELL DISTRIBUTION WIDTH 24.1 % (11.6-13.7); WHITE BLOOD COUNT (AUTO) 11.4 K/uL (4.8-10.8)
[2022-10-11 08:23] LABS: ANION GAP 2.6 (8-16); CARBON DIOXIDE 39.9 mmol/L (21-32); CREATININE 0.8 mg/dL (0.6-1.3); POTASSIUM 4.5 mmol/L (3.5-5.1)
[2022-10-11 08:35] LABS: PHOSPHORUS 2.5 mg/dL (2.5-4.9)
[2022-10-11] MEDS: ALBUTEROL SULFATE/IPRATROPIU 3 ML SOL IH SCH ×3 (08:39→19:00)
[2022-10-11] MEDS: PANTOPRAZOLE 40 MG INJ VIAL IVP SCH (09:10)
[2022-10-11] MEDS: FUROSEMIDE 40 MG/4 ML VIAL IVP SCH ×2 (09:11→20:53)
[2022-10-11] MEDS: MAGNESIUM OXIDE 400 MG TAB PO SCH (09:20)
[2022-10-11] MEDS: DOCUSATE SODIUM 100 MG GELCAP PO SCH ×2 (09:20→20:54)
--- NOTE | 2022-10-11 13:05 | NUR ---
STARTED THORACENTESIS AT BEDSIDE WITH RADIOLOGIST AND MD.
--- NOTE | 2022-10-11 13:18 | NUR ---
GI -RADIOLOGIST TECH REPORTED THAT THORACENTESIS WAS DONE AND OUTPUT WAS 1700 ML. INFORMED CHARGE NURSE GONSALO -HILARY.
--- NOTE | 2022-10-11 13:27 | NUR ---
KEITH BERMUDEZ AND INFORMED OF THORACENTESIS OUTPUT AND SPECIMEN ORDERS.
--- NOTE | 2022-10-11 18:55 | NUR ---
RT CAME AND CHECKED PT..
--- NOTE | 2022-10-11 19:27 | NUR ---
REPORT GIVEN TO GRETEL GARCIA. IN STABLE CONDITION.
[2022-10-11] MEDS: HYDROcodone/APAP 7.5/325 MG 1 TAB PO PRN (19:57)
--- NOTE | 2022-10-12 02:13 | NUR ---
PT REMOVES BI-PAP, AND REPLACES WHEN NEEDED. PT IS CURRENTLY ON A CURAPLEX NASAL CANNULA AT 15LPM. PT IS IN NO DISTRESS, WITH SATURATION OF 96%.
[2022-10-12 04:00] VITALS: BP 96/63
[2022-10-12] MEDS: PIPERACILLIN/TAZOBACTAM 3.375 GM in DEXTROSE 5% 50 ML IV SCH ×3 (05:39→21:00)
[2022-10-12] MEDS: ALBUTEROL SULFATE/IPRATROPIU 3 ML SOL IH SCH ×3 (06:55→19:03)
[2022-10-12 07:20] LABS: BASOPHILS % (AUTO) 0.1 % (0.0-2.0); EOSINOPHILS % (AUTO) 0.3 % (0.0-4.0); HEMATOCRIT 28.9 % (36-52); HEMOGLOBIN 9.5 g/dL (12.0-18.0); LYMPHOCYTES # (AUTO) 0.5 K/uL (2.0-11.5); LYMPHOCYTES % (AUTO) 8.1 % (20.5-51.1); MEAN CORPUSCULAR HEMOGLOBIN 28 pg (27-31); MEAN CORPUSCULAR HGB CONC 33 g/dL (33-37); MEAN CORPUSCULAR VOLUME 85.7 fL (80-94); MONOCYTES # (AUTO) 0.7 K/uL (0.8-1.0); MONOCYTES % (AUTO) 12.3 % (1.7-9.3); NEUTROPHILS # (AUTO) 4.7 K/uL (1.8-7.7); NEUTROPHILS % (AUTO) 79.2 % (42.2-75.2); PLATELET COUNT (AUTO) 145 K/uL (140-450); RED BLOOD CELL COUNT(AUTO) 3.37 MIL/uL (4.20-6.10); RED CELL DISTRIBUTION WIDTH 24.3 % (11.6-13.7); WHITE BLOOD COUNT (AUTO) 5.9 K/uL (4.8-10.8)
[2022-10-12 07:33] LABS: MAGNESIUM 1.8 mg/dL (1.8-2.4); PHOSPHORUS 2.1 mg/dL (2.5-4.9)
[2022-10-12 07:35] LABS: ANION GAP 3.6 (8-16); CREATININE 0.9 mg/dL (0.6-1.3); POTASSIUM 3.8 mmol/L (3.5-5.1)
[2022-10-12 07:48] LABS: CARBON DIOXIDE 43.2 mmol/L (21-32)
[2022-10-12 08:00] VITALS: BP 121/63
[2022-10-12] MEDS: FUROSEMIDE 40 MG/4 ML VIAL IVP SCH ×2 (09:10→21:00)
[2022-10-12] MEDS: PANTOPRAZOLE 40 MG INJ VIAL IVP SCH (09:11)
[2022-10-12] MEDS: DOCUSATE SODIUM 100 MG GELCAP PO SCH ×2 (09:12→21:00)
[2022-10-12] MEDS: MAGNESIUM OXIDE 400 MG TAB PO SCH (09:12)
[2022-10-12] MEDS ORDERED: DEXMEDETOMIDINE HCL 400 MCG in NACL 0.9% 96 ML IV PRN (10:00)
[2022-10-12 12:51] VITALS: BP 99/60
[2022-10-12 13:20] VITALS: BP 99/60
--- NOTE | 2022-10-12 15:41 | NUR ---
0800: RECEIVED PT FROM GRETEL RICHARD. PT SITTING UP IN BED AWAKE. ON BI-PAP. O2 SAT AT 95%. NO GAURDING OR GRIMACING NOTED. NO ACUTE DISTRESS NOTED AT THIS TIME. [id number].
[2022-10-12 16:00] VITALS: BP 97/57
--- NOTE | 2022-10-12 17:07 | NUR ---
DC PLANNING: LATE ENTRY: MADE A CALL TO [facility] AT [phone], PER ANSWERING SERVICE THEY HAVE A SHORT DAY TODAY AND TO FOLLOW UP IN AM. WILL FOLLOW. Addendum: 10/13/22 at 1719 by Lisa Negron CM LATE ENTRY: MADE A FOLLOW UP CALL TO [facility], ABLE TO SPEAK TO MISAEL. PER MISAEL, ONCE ORDER AND CLINICALS RECEIVED HE WILL REACH OUT TO THEIR PRIMARY CARE CLINIC. MISAEL PROVIDED THIS CM WITH FAX [phone] TO SEND CLINICALS. MISAEL ALSO STATED THAT PATIENT IS SERVICE CONNECTED WITH [facility]. DIRECT NUMBER TO CALL CENTER IS [phone]. CLINICALS AND ORDER FAXED TO PROVIDED NUMBER. WILL FOLLOW UP. Addendum: 10/13/22 at 1722 by Karen Gallardo RN DC PLANNING: CM CALLED [facility] [phone] SPOKE WITH CHRISTIANE STATED DIDN'T RECEIVE AND PAPERWORK FAXED TO [phone] SHEYLA GRANDE WILL REVIEW THE PAPER WORK AND CALL BACK. CM DISCUSSED THE ORDER FOR LTAC PER CHRISTIANE WILL DISCUSS IT WITH CREDIT RISK ANALYST. CM TO FOLLOW Addendum: 10/14/22 at 1035 by Karen Gallardo RN DC PLANNING: CALLED [facility] SPOKE WITH TATY CHEN PT'S CLINICAL PER TATY NO TELE OR ICU BED AND STILL REVIEWING FOR LTAC EVAL. CM TO FOLLOW Addendum: 10/14/22 at 1344 by Karen Gallardo RN DC PLANNING: CALLED [facility] SPOKE WITH TATY STATED THEY DON'T HAVE ICU BED. CM CLARIFIED PT IS IN TELE FLOOR AT [facility] SHEYLA POSEY THEY HAVE TO PLACE PT WITH HF RATER TO ICU AND HE MENTIONED THAT AWAITING FOR MARKET GARDEN WORKER TO APPROVE FOR LTAC. CM TO FOLLOW Addendum: 10/14/22 at 1412 by Karen Gallardo RN DC PLANNING: RECEIVED A CALL FROM [facility] SPOKE WITH KANDY STATED JUST TO CALL HER WHEN [facility] ACCEPT PATIENT HER NUMBER IS [phone] AND THE LTAC CM FOR [facility] IS QUAN HERNANDEZ [phone] FOR TRANSPORT TO CONTACT EXT [phone] . KANDY MENTIONED THAT PATIENT HAS A BROTHER NAME SHAR [phone] . CM TO FOLLOW Addendum: 10/15/22 at 1033 by Karen Gallardo RN DC PLANNING: CALLED [facility] SPOKE WITH THE WINE CELLAR WORKER UPDATED HER PT'S CLINICAL THAT PT IS ON 4L/NC SATING 98% PER COORDINATOR NO BED AVAILABLE AT THIS TIME. PER [facility] HESITATING TO ACCEPT PATIENT BECAUSE OF HARD PLACEMENT AFTER CARE. CM TO FOLLOW Addendum: 10/18/22 at 1227 by Karen Gallardo RN DC PLANNING: CALLED [facility] SPOKE WITH MORAIMA CHEN PT'S CLINICAL PER MORAIMA THEY DON'T HAVE ANY BEDS TO CHECK IN THE AFTERNOON. CALLED [facility] STATED NO ONE IS ACCEPTING PATIENT BECAUSE OF THE DC PLAN AFTER [facility]. PATIENT IS STILL ON HF 30L FIO2 35%. CM TO FOLLOW Addendum: 10/21/22 at 4622 by Karen Gallardo RN DC PLANNING: CALLED [facility] SPOKE WITH TATY STATED NO BED AVAILABLE AT THIS TIME PER TATY TO FAX THE CLINICAL AND WILL CALL [facility] WHEN BED AVAILABLE . FAXED THE CLINICALS TO [phone] CALLED KANDY AT [facility] LEFT A MESSAGE. CM TO FOLLOW. Addendum: 10/25/22 at 1547 by Karen Gallardo RN DC PLANNING: CM SPOKE WITH PATIENT AND DISCUSSED THE DC PLAN TO GO TO ROOM AND BOARD CM REACHED OUT [facility] SPOKE WITH RITO AND PER RITO WILL TO HELP PATIENT. RITO SPOKE WITH PATIENT AND PATIENT AGREED TO GO WITH ROOM AND BOARD. PER RITO THE NURSE GOLDY WILL COME TO EVALUATE PATENT. CM TO FOLLOW Addendum: 10/26/22 at 1528 by Karen Gallardo RN DC PLANNING: CM MET RITO FROM [facility] STATED PER THEIR NURSE EVALUATION PATIENT NEEDS TOTAL CARE ASSISTANCE AND THE ESPINAL WILL BE CHANGED 5500/MONTH . RITO CAME TO THE HOSPITAL TO DISCUSS WITH PATIENT BUT PATIENT WAS LETHARGIC UNABLE TO SIGN PAPER WORK. NOTIFIED NURSE AND CHARGE NURSE. PER RT WILL ORDER ABG. CM TO FOLLOW Addendum: 10/29/22 at 1356 by Karen Gallardo RN DC PLANNING: CM CALLED DC GUEST SERVICES DIRECTOR AT [facility] [phone] SPOKE WITH ANABELLE CHAUDHARY APPROVED FOR SNF AND WILL MESSAGE YUMIKO AT [facility] FOR AUTH AND WILL ARRANGE TRANSPORT. CM TO FOLLOW Addendum: 10/29/22 at 1722 by Karen Gallardo RN DC PLANNING: [facility]PONSE CALLED ON PATIENT PER DR DEVRIES TO HOLD THE DC CALLED [facility] LEFT A MESSAGE FOR ANABELLE AND [facility]. CM TO FOLLOW Addendum: 11/04/22 at 1123 by Karen Gallardo RN LATE ENTRY 11/01/22 PATIENT WAS INTUBATED SEDATED FIO2 24% PULMO FOLLOWING ON LEVOPHED AND PROPOFOL DRIP. CONTINUE CPAP TRAL. CALLED NEENA LEFT A MESSAGE FOR CM TO FOLLOW Addendum: 11/04/22 at 1135 by Karen Gallardo RN DC PLANNING: ON 11/03/[address] DEVRIES MET WITH PATIENT'S LINUX UNIX ADMINISTRATOR PHILIP AND PT'S SON ARACELI GRAAHM. DR DEVRIES EXPLAINED PT'S CLINICALS AND POSSIBLE OUTCOME AND ANSWERED ALL QUESTIONS AND CONCERNS. PT'S SON VERBALIZED UNDERSTANDING AND WISHING TO CONTINUE TO GET ALL MEDICAL TREATMENT. PATIENT REMAINED FULL CODE AND ON LEVOPHED CONTINUE C-PAP TRIAL. PULMO AND CARDIO FOLLOWING. CM TO FOLLOW Addendum: 11/04/22 at 1407 by Karen Gallardo RN DC PLANNING: RECEIVED A CALL FROM [facility] SPOKE WITH REGINA CHEN PT'S CLINICAL. PER REGINA NO ICU BED AT THIS TIME HOWEVER REQUESTED CLINICALS TO BE FAXED TO [facility]. FAXED ALL CLINICALS TO [phone] CM TO FOLLOW
[2022-10-12 20:00] VITALS: BP 97/57
[2022-10-12] MEDS: ACETAZOLAMIDE SOD 250 MG TAB PO SCH (21:00)
[2022-10-13] VITALS: BP 98/62
[2022-10-13] MEDS ORDERED: PIPERACILLIN/TAZOBACTAM 3.375 GM VIAL IV ONE ×2 (00:13→07:08)
--- NOTE | 2022-10-13 01:51 | NUR ---
PT OFF BIPAP AT THIS TIME, SATURATING 100% ON NASAL CANNULA
[2022-10-13 04:00] VITALS: BP 110/68
[2022-10-13] MEDS: PIPERACILLIN/TAZOBACTAM 3.375 GM in DEXTROSE 5% 50 ML IV SCH (06:30)
[2022-10-13] MEDS: ALBUTEROL SULFATE/IPRATROPIU 3 ML SOL IH SCH ×3 (07:14→19:27)
--- NOTE | 2022-10-13 07:14 | NUR ---
AWAKE AND ALERT VERBALLY RESPONSIVE TO LEAD ENTERPRISE ARCHITECT VERBAL COMMANDS RECEIVED OFF BIPAP; ON SUPPLEMENTAL OXYGEN AT 15 LPM VIA CURAPLEX NC SATURATION 98% ENCOURAGED PATIENT FOR INTERMITTENT DEEP BREATH AND COUGH DURING HHN THERAPY POST THERAPY TITRATED FIO2 TO 12 LPM LEAD ENTERPRISE ARCHITECT TO MONITOR
[2022-10-13 07:24] LABS: BASOPHILS % (AUTO) 0.1 % (0.0-2.0); EOSINOPHILS # (AUTO) 0.1 K/uL (0-0.4); EOSINOPHILS % (AUTO) 1.5 % (0.0-4.0); HEMATOCRIT 26.1 % (36-52); HEMOGLOBIN 8.6 g/dL (12.0-18.0); LYMPHOCYTES # (AUTO) 0.5 K/uL (2.0-11.5); LYMPHOCYTES % (AUTO) 6.7 % (20.5-51.1); MEAN CORPUSCULAR HEMOGLOBIN 28 pg (27-31); MEAN CORPUSCULAR HGB CONC 33 g/dL (33-37); MEAN CORPUSCULAR VOLUME 83.8 fL (80-94); MONOCYTES # (AUTO) 0.5 K/uL (0.8-1.0); MONOCYTES % (AUTO) 7.2 % (1.7-9.3); NEUTROPHILS # (AUTO) 5.9 K/uL (1.8-7.7); NEUTROPHILS % (AUTO) 84.5 % (42.2-75.2); PLATELET COUNT (AUTO) 113 K/uL (140-450); RED BLOOD CELL COUNT(AUTO) 3.11 MIL/uL (4.20-6.10); RED CELL DISTRIBUTION WIDTH 23.2 % (11.6-13.7)
[2022-10-13 07:28] LABS: ANION GAP 3.9 (8-16); CREATININE 0.7 mg/dL (0.6-1.3); POTASSIUM 3.7 mmol/L (3.5-5.1)
--- NOTE | 2022-10-13 07:30 | NUR ---
RECIEVED PATIENT, AOX4 ON BED FROM NIGHTSHIFT NURSE. DAILY TASKS FOR CONTINUITY OF CARE ESTABLISHED.
[2022-10-13 07:54] LABS: MAGNESIUM 1.9 mg/dL (1.8-2.4); PHOSPHORUS 1.7 mg/dL (2.5-4.9)
[2022-10-13 07:55] LABS: CARBON DIOXIDE 41.8 mmol/L (21-32)
[2022-10-13 08:00] VITALS: BP 92/53
[2022-10-13] MEDS: ACETAZOLAMIDE SOD 250 MG TAB PO SCH ×2 (09:00→21:00)
[2022-10-13] MEDS: FUROSEMIDE 40 MG/4 ML VIAL IVP SCH ×2 (09:31→21:00)
[2022-10-13] MEDS: DOCUSATE SODIUM 100 MG GELCAP PO SCH ×2 (09:32→21:00)
[2022-10-13] MEDS: PANTOPRAZOLE 40 MG INJ VIAL IVP SCH (09:32)
[2022-10-13] MEDS: MAGNESIUM OXIDE 400 MG TAB PO SCH (09:34)
--- NOTE | 2022-10-13 11:08 | NUR ---
SATURATION 98% ON 12 LPM VIA CURAPLEX NC TITRATED FIO2 TO 8 LPM RUPA/RN NOTIFIED
--- NOTE | 2022-10-13 11:35 | NUR ---
SATURATION 98% ON 8 LPM VIA CURAPLEX NC TITRATED FIO2 TO 6 LPM RUPA/RN NOTIFIED
[2022-10-13 12:00] VITALS: BP 104/49
--- NOTE | 2022-10-13 13:25 | NUR ---
PATIENT PREP FOR THORACENTESIS. CONSENT FORMS SIGNED. TIME OUT COMPLETED.
--- NOTE | 2022-10-13 13:40 | NUR ---
THORACENTESIS IN PROGRESS NO APPARENT DISTRESS NOTED DATA SECURITY ADMINISTRATOR TO ATTEMPT HN THERAPY AT A LATER TIME
--- NOTE | 2022-10-13 13:43 | NUR ---
1.8L PLEURAL FLUID COLLECTED. SENT TO LAB FOR PLEURAL FLUID CULTURE LDH AND PROTEIN UNDER ORDERS OF DR. VINCENT.
--- NOTE | 2022-10-13 15:24 | NUR ---
10/13/22 RD FOLLOW UP COMPLETED PLEASE REFER TO NUTRITION ASSESSMENT UNDER CARE ACTIVITY FOR ESTIMATED NUTRITIONAL NEEDS. 1. CONTINUE CARDIAC DIET, ENSURE 1/DAY (PROVIDES 350 KCAL AND 20 GM PROTEIN DAILY), AND JOSIAH BID TO PROMOTE WOUND HEALING 2. MONITOR PO INTAKE AND NUTRITION RELATED LAB VALUES 3. RD TO FOLLOW-UP 3-5 DAYS, MODERATE RISK REVIEWED BY MARVA OSORIO RD
[2022-10-13 16:00] VITALS: BP 90/56
--- NOTE | 2022-10-13 17:30 | NUR ---
PATIENT O2 SAT 84-86. REPLACED PULSE OXIMETER WITH NEW. CLOSE MONITORING INITIATED.
--- NOTE | 2022-10-13 17:38 | NUR ---
PATIENT O2 SATURATION STILL 85-87. CALLED RT. RT INSTRUCTED TO INCREASE OXYGEN FROM 6L TO 10L AND REQUEST CHEST XRAY STAT FOR SOB. DOCTOR NOTIFIED.
--- NOTE | 2022-10-13 17:45 | NUR ---
NO IMPROVEMENT ON PATIENT'S O2, RT NOTIFIED. RT RESPONDS TO UNIT. PATIENTS O2 IMPROVES TO A STABLE >90 LEVEL.
--- NOTE | 2022-10-13 19:30 | NUR ---
PM NURSING NARRATIVE (OPENING) HAND-OFF REPORT RECEIVED FROM RUPA FOLLOWING BEDSIDE ROUNDS. ENDORSED 1.8 LITERS OUT PER LEFT US GUIDED THORACOTOMY WITH VISIBLY CHANGE IN LEGS AND ARMS. PT STATES BREATHING EASIER. REPORTED EASILY DESAT TO 88% WITH EXERTION.SYSTOLIC B/P REPORTED 88 AND REBOUNDING WITH REST PERIOD TO JUST OVER 90.RESTING IN BED WITH NO ACUTE SIGNS OF RESP DISTRESS. 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 I JUST DON'T HAVE THE VOLUME FOR A HIGHER B/P. I HAVE TO WATCH MY WATER STILL SO IT IS A CATCH 22. ICE CHIPS PROVIDED.
--- NOTE | 2022-10-13 19:36 | NUR ---
ENDORSED PATIENT TO PM NURSE FOR CONTINUITY OF CARE.
[2022-10-13 20:00] VITALS: BP 88/58
[2022-10-14] VITALS: BP 84/52
--- NOTE | 2022-10-14 | NUR ---
SLEEPING WELL. NOT HEAT TREAT SUPERVISOR LIGHT PREVIOUS NIGHTS. RESTING WELL
[2022-10-14] MEDS: HYDROcodone/APAP 7.5/325 MG 1 TAB PO PRN ×4 (03:31→18:40)
[2022-10-14 04:00] VITALS: BP 104/49
--- NOTE | 2022-10-14 06:00 | NUR ---
GOOD NIGHT. PT RESTING 90 PERCENT OF SHIFT. CONTENTED. ENDORSE TO A.M NURSE CO2 CRITICAL LAB RESULTS 43. CHARGE NURSE NOTIFIED PRESENTLY CO2 43. TWO DAYS PRIOR 43.2.
--- NOTE | 2022-10-14 06:00 | NUR ---
I NORCO REQUESTED. CONTINUES WITHOUT RESPIRATORY DISTRESS. SEE MAR. NORCO EFFECTIVE.
[2022-10-14 06:52] LABS: ANION GAP 0.8 (8-16); CREATININE 0.6 mg/dL (0.6-1.3); POTASSIUM 3.8 mmol/L (3.5-5.1)
[2022-10-14 06:53] LABS: HEMATOCRIT 28.3 % (36-52); HEMOGLOBIN 9.3 g/dL (12.0-18.0); MEAN CORPUSCULAR HEMOGLOBIN 28 pg (27-31); MEAN CORPUSCULAR HGB CONC 33 g/dL (33-37); MEAN CORPUSCULAR VOLUME 83.6 fL (80-94); PLATELET COUNT (AUTO) 122 K/uL (140-450); RED BLOOD CELL COUNT(AUTO) 3.39 MIL/uL (4.20-6.10); RED CELL DISTRIBUTION WIDTH 22.6 % (11.6-13.7); WHITE BLOOD COUNT (AUTO) 7.3 K/uL (4.8-10.8)
[2022-10-14] MEDS: ALBUTEROL SULFATE/IPRATROPIU 3 ML SOL IH SCH ×3 (07:00→19:42)
--- NOTE | 2022-10-14 07:38 | NUR ---
SEEN PATIENT ON BED, AWAKE AND STABLE. RECEIVED REPORT FROM PM NURSE FOR CONTINUITY OF CARE.
[2022-10-14 08:00] VITALS: BP 90/60
[2022-10-14 08:23] LABS: EOSINOPHILS % (MANUAL) 3 % (0-4); LYMPHOCYTES % (MANUAL) 5 % (20-46); MONOCYTES % (MANUAL) 10 % (5-12)
[2022-10-14] MEDS: FUROSEMIDE 40 MG/4 ML VIAL IVP SCH ×2 (09:00→20:07)
[2022-10-14] MEDS: ACETAZOLAMIDE SOD 250 MG TAB PO SCH ×2 (09:00→20:07)
[2022-10-14] MEDS: PANTOPRAZOLE 40 MG INJ VIAL IVP SCH (09:00)
[2022-10-14] MEDS: MAGNESIUM OXIDE 400 MG TAB PO SCH (09:27)
[2022-10-14] MEDS: DOCUSATE SODIUM 100 MG GELCAP PO SCH ×2 (09:28→20:07)
[2022-10-14 12:00] VITALS: BP 97/50
--- NOTE | 2022-10-14 14:38 | NUR ---
PT COMPLAINED OF GENERAL MALAISE AND BEING SHORT OF BREATH. TREATMENT WAS GIVEN AND PT SAID IT HELPED. POST TXN PT COUGHED UP A MODERATE AMOUNT OF THICK YELLOW/BROWN SECRETIONS. EASILY ABLE TO CLEAR HIS SECRETIONS. WILL CONTINUE TO MONITOR PATIENT.
[2022-10-14 16:00] VITALS: BP 95/55
--- NOTE | 2022-10-14 19:27 | NUR ---
ENDORSED PATIENT TO PM NURSE FOR CONTINUITY OF CARE
--- NOTE | 2022-10-14 19:30 | NUR ---
RECEIVED PT IN BED ASLEEP. NO S/SX OF PAIN NOR DISCOMFORT. NO ACUTE RESPIRATORY DISTRESS NOTED. SAFETY PRECAUTIONS IN PLACE, CALL LIGHT IN REACH.
[2022-10-14 20:00] VITALS: BP 95/55
--- NOTE | 2022-10-14 20:00 | NUR ---
PT AGREED TO USE BiPAP AT THIS TIME FOR INCREASE WORK OF BREATHING. PT TOLERATING WELL. RN NOTIFIED.
--- NOTE | 2022-10-14 20:24 | NUR ---
PATIENT NOW PLACED ON BIPAP BY RT.
--- NOTE | 2022-10-14 22:14 | NUR ---
PT REQUESTED TO COME OFF FROM BiPAP AT THIS TIME TO EAT. PLACED PT BACK ON BUBBLE HFNC 8L WITH SPO2 OF 95%. PT WITH MINIMAL INCREASE WORK OF BREATHING. WILL CONTINUE TO MONITOR PT.
[2022-10-15] VITALS: BP 99/62
--- NOTE | 2022-10-15 | NUR ---
VITAL SIGNS TAKEN AND DOCUMENTED. PROVIDED JUICE AND ATE HIS SALAD. PER PT HE IS COMFORTABLE AT THIS TIME. CALL LIGHT IN REACH.
--- NOTE | 2022-10-15 00:12 | NUR ---
PT REQUESTED TO GO BACK ON BiPAP. PT TOLERATING WELL. FiO2 35% NOW WITH SPO2 OF 96%. RN NOTIFIED
--- NOTE | 2022-10-15 02:23 | NUR ---
ROUNDING DONE. PATIENT IS ASLEEP. NO DISTRESS NOTED. CURRENTLY ON BIPAP, TOLERATING WELL. CALL LIGHT IN REACH.
[2022-10-15 04:00] VITALS: BP 101/57
--- NOTE | 2022-10-15 04:00 | NUR ---
OFF BIPAP PER PT'S REQUEST. PLACED BACK TO 02-10L HI FLOW BUBBLER SAT 97%.
--- NOTE | 2022-10-15 05:46 | NUR ---
PATIENT REQUESTED FROM STEAMER OPERATOR TO DECREASE 02 TO 5L SATURATING 94%. Addendum: 10/15/22 at 0612 by Shaunna Velasco RN REFUSED AM CARE.
--- NOTE | 2022-10-15 06:22 | NUR ---
PATIENT IS ASLEEP. ALL NEEDS ATTENDED TO. NO DISTRESS NOTED. SAFETY PRECAUTIONS MAINTAINED DURING THE SHIFT, CALL LIGHT REMAINS WITHIN REACH.
[2022-10-15] MEDS: ALBUTEROL SULFATE/IPRATROPIU 3 ML SOL IH SCH ×3 (07:59→19:26)
[2022-10-15] MEDS: PANTOPRAZOLE 40 MG INJ VIAL IVP SCH (09:00)
[2022-10-15] MEDS: FUROSEMIDE 40 MG/4 ML VIAL IVP SCH ×3 (09:00→21:00)
[2022-10-15] MEDS: MAGNESIUM OXIDE 400 MG TAB PO SCH (09:00)
--- NOTE | 2022-10-15 10:30 | NUR ---
PT. REFUSES WOUND CARE RE-EVALUATION, PT IS AAX4, C/O SOB, O2 SAT 84%, SKIN / LIPS PALE. CALL PRIMARY RN LEWIS HERNANDEZ, BEDSIDE ASSESSMENT DONE BY PRIMARY RN AND A MEDICAL STUDENT, NON-REBREATHER BAG PROVIDES. PRIMARY RN TAKES OVER CARE.
--- NOTE | 2022-10-15 10:59 | NUR ---
PATIENT ON NON-REBREATHER, REFUSE TO TAKE OFF. PATIENT ASK TO LEAVE ON FOR ANOTHER 30MIN, HOWEVER THE PATIENT SAT ARE 100%, BUT HIS INCREASE WORK OF BREATHING.
--- NOTE | 2022-10-15 12:06 | NUR ---
WOUND CARE RE-EVALUATION NOTE: PT. O2 SAT 97-100% WITH RE-BREATHER MASK. PT ALLOWS ME TO ASSES SKIN . PT. IS AWARE OF SACRALCOCCYX PRESSURE ULCER. POC DISCUSSED. PT. WITH LOW MARICEL SCALE AT HIGH RISK, CONTINUE TO FOLLOW PRESSURE INJURY PREVENTION INTERVENTIONS. FURTHER SKIN BREAK AND DELAY WOUND HEALING DUE TO HYPOXIA AND DECREASE OF MOBILITY. - SACRALCOCCYX PRESSURE INJURY STAGE 2 WITH 1 X 1 X 0.1 CM. WOUND BED PINK,MOIST, NO ODOR. NATALY-WOUND SKIN BLANCHABLE REDNESS AND INTACT. RECOMMENDATION: -CLEANSE SACRALCOCCYX WITH NS, PAT DRY, APPLY Z GUARD AND COVER WITH FOAM DRESSING QD AND PRN IF SOILING -POSITIONING: TURN AND REPOSITION PATIENT Q 2H OR SOONER USE PILLOWS TO KEEP BONY PROMINENCES FROM DIRECT CONTACT WITH SURFACES USE REPOSITIONING WEDGES TO PROVIDE 30-DEGREE ANGLE FOR SIDE LYING POSITIONS OFFLOADING OR FOAM DRESSING TO ALL TUBING TO PREVENT MEDICAL DEVICES RELATED PRESSURE INJURY -RE-EVALUATING AND MANAGING INCONTINENCE MONITOR SKIN CONDITION DURING POSITION CHANGE DO NOT MASSAGE REDNESS, BONY PROMINENCES FREQUENT NATALY-CARE AND PROVIDE BARRIER CREAMS PRN IF SOILING MOISTURE CONTROL BY OFFER BED TORRES/URINAL /ABSORBENT PAD TO WICK AND HOLD MOISTURE KEEP SKIN DRY AND PROTECT FROM FRICTION -MANAGE FRICTION/SHEAR/MOBILITY KEEP HOB AT THE LOWEST LEVEL OF ELEVATION NO MORE THAN 30 DEGREE UNLESS OTHERWISE CONTRAINDICATED USE LIFT SHEET OR TRANSFER DEVICE TO MOVE PATIENT AND PREVENT LATERAL SHEER. PROTECT HEELS, ELBOWS BONY PROMINENCES WITH SKIN BERRIES OR FOAM DRESSING IF EXPOSED TO FRICTION OFFLOAD BILATERAL HEELS BY PLACING PILLOWS UNDER CALVES AT ALL TIMES, UNLESS OTHERWISE CONTRAINDICATED -PRESSURE REDISTRIBUTION SURFACE THERAPY ROSSI ISOFLEX MATTRESS -NUTRITION: PLEASE FOLLOW RD RECOMMENDATIONS AND OFFER NUTRITION SUPPLEMENTS IF ORDERED. PLEASE CONTACT WOUND CARE NURSE FOR ANY QUESTION AND CHANGE OF WOUND CONDITION.
[2022-10-15] MEDS: DOCUSATE SODIUM 100 MG GELCAP PO SCH ×2 (12:46→21:12)
[2022-10-15] MEDS: ACETAZOLAMIDE SOD 250 MG TAB PO SCH ×3 (12:47→21:13)
--- NOTE | 2022-10-15 19:20 | NUR ---
RECEIVED PT ON 12L NRB. PT WOB OF BREATHING WAS INCREASED. GAVE HIM HIS BREATHING TX AND THEN PT AGREED TO BE PLACED ON BIPAP 02/03 R16 35%
[2022-10-15 19:31] VITALS: BP 98/61
[2022-10-15 20:00] VITALS: BP 97/64
[2022-10-15] MEDS: Z-GUARD PASTE TP SCH (20:27)
--- NOTE | 2022-10-15 22:12 | NUR ---
PT HAD WANTED TO TAKE A BREAK FROM BIPAP TO EAT. PT CALLED AND SAID HE WAS READY TO BE PLACED BACK ON AND IS NOW UNDERSTANDING THAT IT HELPS WITH HIS WOB AND HE WILL STAY ON IT FOR LONG HE CAN.
--- NOTE | 2022-10-15 22:31 | NUR ---
RECEIVED PT IN STABLE CONDITION.RESP IS UNLABORED W/O2 AT 10L/NRB.F/C PATENT.CALL LIGHT IN REACH.SL.PATENT.NO C/O PAIN AT PRESENT TIME.HAS GENERALIZED EDEMA.
[2022-10-16] VITALS: BP 99/64
--- NOTE | 2022-10-16 01:00 | NUR ---
SLEEPING.CONDITION STABLE.RESP IS UBLABORED W/BIPAP.NO DISTRESS NOTED NOW.HR IS SR.
[2022-10-16 04:00] VITALS: BP 98/60
--- NOTE | 2022-10-16 04:45 | NUR ---
SLEEPING.RESP.IS UNLABORED W/BI-PAP.
[2022-10-16] MEDS: IPRATROPIUM 0.02% 0.5 MG/2.5 ML NEBU INH SCH ×3 (07:00→19:00)
[2022-10-16] MEDS: ALBUTEROL 0.083% 2.5 MG/3 ML NEBU INH SCH ×3 (07:00→19:00)
--- NOTE | 2022-10-16 07:21 | NUR ---
PT ASKED TO CHANGED BI=
--- NOTE | 2022-10-16 07:22 | NUR ---
PT ASKED TO CHANGE BI-PAP.CALLED RT,SHE SAID PUT PT ON NRB AT 10L/M.IT DON.REPORT GIVEN TO AM RN IN STABLE CONDITION.
[2022-10-16] MEDS ORDERED: ALBUTEROL 0.083% 2.5 MG/3 ML NEBU INH ONE ×2 (07:32→14:06)
[2022-10-16] MEDS ORDERED: IPRATROPIUM 0.02% 0.5 MG/2.5 ML NEBU INH ONE ×2 (07:32→14:06)
--- NOTE | 2022-10-16 07:40 | NUR ---
SWITCH RESP BREATHING TX ORDER FROM [facility] TO ATROVENT AND ALBUTEROL DUE TO PHARMACY NOT HAVING MED. AM MED WAS GIVEN CHARTED UNDER ONE TIME GIVEN IN EMAR .
[2022-10-16 08:00] VITALS: BP 93/57
[2022-10-16] MEDS: DOCUSATE SODIUM 100 MG GELCAP PO SCH ×2 (09:00→20:48)
[2022-10-16] MEDS: MAGNESIUM OXIDE 400 MG TAB PO SCH (09:00)
[2022-10-16] MEDS: ACETAZOLAMIDE SOD 250 MG TAB PO SCH ×2 (09:00→21:07)
[2022-10-16] MEDS: PANTOPRAZOLE 40 MG INJ VIAL IVP SCH (09:00)
[2022-10-16] MEDS: FUROSEMIDE 40 MG/4 ML VIAL IVP SCH ×2 (09:00→20:48)
[2022-10-16 12:00] VITALS: BP 104/62
[2022-10-16] MEDS: Z-GUARD PASTE TP SCH (13:00)
[2022-10-16 14:37] LABS: BASOPHILS % (AUTO) 0.4 % (0.0-2.0); EOSINOPHILS # (AUTO) 0.3 K/uL (0-0.4); EOSINOPHILS % (AUTO) 4.6 % (0.0-4.0); HEMATOCRIT 27.7 % (36-52); HEMOGLOBIN 9.1 g/dL (12.0-18.0); LYMPHOCYTES # (AUTO) 0.4 K/uL (2.0-11.5); MEAN CORPUSCULAR HEMOGLOBIN 28 pg (27-31); MEAN CORPUSCULAR HGB CONC 33 g/dL (33-37); MONOCYTES # (AUTO) 0.9 K/uL (0.8-1.0); MONOCYTES % (AUTO) 14.4 % (1.7-9.3); NEUTROPHILS # (AUTO) 4.5 K/uL (1.8-7.7); NEUTROPHILS % (AUTO) 74.6 % (42.2-75.2); PLATELET COUNT (AUTO) 124 K/uL (140-450); RED CELL DISTRIBUTION WIDTH 22.2 % (11.6-13.7); WHITE BLOOD COUNT (AUTO) 6.1 K/uL (4.8-10.8)
[2022-10-16 14:55] LABS: ANION GAP 7.1 (8-16); CARBON DIOXIDE 39.4 mmol/L (21-32); CREATININE 0.7 mg/dL (0.6-1.3); POTASSIUM 3.5 mmol/L (3.5-5.1)
[2022-10-16 15:00] LABS: MAGNESIUM 1.6 mg/dL (1.8-2.4); PHOSPHORUS 2.8 mg/dL (2.5-4.9)
[2022-10-16 16:00] VITALS: BP 121/76
--- NOTE | 2022-10-16 19:30 | NUR ---
RECEIVED REPORT FROM DAY SHIFT NURSE JIAN FOR CONTINUITY OF CARE. PATIENT IS A&O X4. PATIENT IS ON BIPAP; BREATHING IS NORMAL WITH SYMMETRICAL RISE AND FALL OF CHEST. IV IS A 20G RFA, NO FLUIDS RUNNING AT THIS TIME. PATIENT IS SLEEPING, LYING IN SEMI-FOWLERS POSITION. BED IS IN LOWEST POSITION, WHEELS LOCKED, CALL LIGHT IN PLACE. WILL CONTINUE TO OBSERVE PATIENT.
--- NOTE | 2022-10-16 19:57 | NUR ---
0800: RECEIVED PT FROM PAULINO RICHARD. PT RESTING IN BED EYES CLOSED. NO GUARDING OR GRIMACING. NO ACUTE DISTRESS NOTED AT THIS TIME. [id number].
--- NOTE | 2022-10-16 19:59 | NUR ---
1939: REPORTED OFF TO KAREEM RICHARD. PT RESTING IN BED EYES CLOSED. NO GUARDING OR GRIMACING. NO ACUTE DISTRESS NOTED AT THIS TIME. [id number].
[2022-10-16 20:00] VITALS: BP 125/60
[2022-10-16] MEDS: PIPERACILLIN/TAZOBACTAM 3.375 GM in DEXTROSE 5% 50 ML IV SCH (20:49)
--- NOTE | 2022-10-16 22:35 | NUR ---
PT DISCONNECTED BIPAP. PT WAS NOT FULLY RESPONDING OR WAKING UP TO VERBAL. SPO2 100% WITH VOLUMES IN 400'S. FELLOW RT WAS ABLE TO GET PT TO RESPOND AND HE YELLED AT HER TO QUIT WAKING HIM UP OR HE WILL BEGIN TO THROW THINGS.
[2022-10-17] VITALS: BP 90/48
[2022-10-17 04:00] VITALS: BP 91/45
--- NOTE | 2022-10-17 05:00 | NUR ---
PATIENT HAS SLEPT THROUGHOUT THE NIGHT. PATIENT DID NOT LIKE BEING DISTURBED WHILE SLEEPING. ASSESSED PATIENT WITH KYE SALAZAR; PATIENT DID NOT HAVE A BM. PATIENT HAS SOME REDNESS ON COCCYX, BUT NO OPEN WOUND. PATIENT IS STILL ON BIPAP. WHILE TRYING TO ASSESS PATIENT, PATIENT STARTED TRYING TO GET OUT OF BED (SITTING UP ON EDGE OF BED AND LEANING FORWARD). KYE SALAZAR AND I ATTEMPTED TO PUT PATIENT BACK IN A LYING DOWN POSITION ON THE BED. PATIENT WAS UNCOOPERATIVE AND IRRITABLE. KYE SALAZAR AND I WERE ABLE TO SUCCESSFULLY GET PATIENT BACK ONTO THE BED. AFTERWARDS PATIENT FELL BACK TO SLEEP. WILL CONTINUE TO OBSERVE PATIENT.
[2022-10-17] MEDS: PIPERACILLIN/TAZOBACTAM 3.375 GM in DEXTROSE 5% 50 ML IV SCH ×3 (05:23→20:40)
[2022-10-17 07:09] LABS: BASOPHILS % (AUTO) 0.2 % (0.0-2.0); EOSINOPHILS # (AUTO) 0.3 K/uL (0-0.4); EOSINOPHILS % (AUTO) 7.1 % (0.0-4.0); HEMOGLOBIN 9.1 g/dL (12.0-18.0); LYMPHOCYTES # (AUTO) 0.4 K/uL (2.0-11.5); LYMPHOCYTES % (AUTO) 8.9 % (20.5-51.1); MEAN CORPUSCULAR HEMOGLOBIN 28 pg (27-31); MEAN CORPUSCULAR HGB CONC 32 g/dL (33-37); MEAN CORPUSCULAR VOLUME 85.3 fL (80-94); MONOCYTES # (AUTO) 0.7 K/uL (0.8-1.0); MONOCYTES % (AUTO) 15.7 % (1.7-9.3); NEUTROPHILS % (AUTO) 68.1 % (42.2-75.2); PLATELET COUNT (AUTO) 123 K/uL (140-450); RED BLOOD CELL COUNT(AUTO) 3.28 MIL/uL (4.20-6.10); RED CELL DISTRIBUTION WIDTH 22.4 % (11.6-13.7); WHITE BLOOD COUNT (AUTO) 4.3 K/uL (4.8-10.8)
[2022-10-17 07:10] LABS: CREATININE 0.6 mg/dL (0.6-1.3)
[2022-10-17 07:19] LABS: ANION GAP 5.5 (8-16); MAGNESIUM 1.7 mg/dL (1.8-2.4); PHOSPHORUS 3.4 mg/dL (2.5-4.9)
--- NOTE | 2022-10-17 07:19 | NUR ---
GOT REPORT FROM THE NIGHT NURSE,PT SLEEPING WITH C-POP NO SOB.[id number]
[2022-10-17 07:38] LABS: CARBON DIOXIDE 41.9 mmol/L (21-32); POTASSIUM 2.4 mmol/L (3.5-5.1)
--- NOTE | 2022-10-17 07:39 | NUR ---
ENDORSED TO DAY SHIFT NURSE JENNIFFER FOR CONTINUITY OF CARE. PATIENT IS STABLE.
[2022-10-17] MEDS: IPRATROPIUM 0.02% 0.5 MG/2.5 ML NEBU INH SCH ×2 (07:57→15:54)
[2022-10-17] MEDS: ALBUTEROL 0.083% 2.5 MG/3 ML NEBU INH SCH ×3 (07:57→20:23)
[2022-10-17 08:00] VITALS: BP 109/58
--- NOTE | 2022-10-17 08:05 | NUR ---
REMOVED PATIENT FROM BIPAP TO MASK; PLACED ON SUPPLEMENTAL OXYGEN AT 3 LPM VIA CURAPLEX NASAL CANNULA/BUBBLE HUMIDIFIER; SATURATION 98%
[2022-10-17] MEDS: FUROSEMIDE 40 MG/4 ML VIAL IVP SCH ×2 (08:54→20:50)
[2022-10-17] MEDS: DOCUSATE SODIUM 100 MG GELCAP PO SCH ×2 (08:54→20:55)
[2022-10-17] MEDS: MAGNESIUM OXIDE 400 MG TAB PO SCH (08:54)
[2022-10-17] MEDS: PANTOPRAZOLE 40 MG INJ VIAL IVP SCH (08:54)
--- NOTE | 2022-10-17 09:04 | NUR ---
AWAKE AND ALERT VERBALLY RESPONSIVE GOOD CHEST RISE NO APPARENT DISTRESS NOTED AT THIS TIME COOKER OPERATOR TO MONITOR
[2022-10-17] MEDS ORDERED: POTASSIUM CHLORIDE 10 MEQ TABER PO SCH ×2 (09:05→14:00)
[2022-10-17] MEDS: ACETAZOLAMIDE SOD 250 MG TAB PO SCH ×2 (09:27→20:58)
[2022-10-17] MEDS ORDERED: POTASSIUM CHLORIDE 40 MEQ, LIDOCAINE 1% 25 MG in NACL 0.9% 250 ML IV ONE ×2 (10:00→17:00)
--- NOTE | 2022-10-17 11:05 | NUR ---
PT REFUSED TO TAKE COLACE,MAG OXIDE , DIAMOX . HE TOOK ONLY 10MEQ WHICH IS ONE TABLET AND REFUSED THE SECOND ONE. ATTEMPT DONE SEVERAL TIMES TO ADMINISTERED YET PT REFUSED MD AWARE OF IT.[id number]
[2022-10-17 12:00] VITALS: BP 108/56
[2022-10-17] MEDS: Z-GUARD PASTE TP SCH (13:00)
--- NOTE | 2022-10-17 13:37 | NUR ---
PT IS REFUSING TO BE TURNED ALSO DO NOT WANT TO ANSWER ANY QUESTION LIKE IF HE IS IN PAIN. 02 SATURATION IS 98 IN 2LNC.[id number]
[2022-10-17] MEDS ORDERED: KCL 20 MEQ IN 100 mL PREMIX 100 ML IV ONE (15:04)
[2022-10-17 16:00] VITALS: BP 95/55
--- NOTE | 2022-10-17 16:12 | NUR ---
PLACED ON A VAPOTHERM HIGH FLOW NASAL CANNULA NOTED TO OVERCOME SPACE FROM PULMONARY EDEMA; LESSENING USE OF BIPAP TO MASK; JENNIFFER/RN NOTIFIED
--- NOTE | 2022-10-17 16:33 | NUR ---
NEW IV STARTED ON RIGHT FORARM WITH 24G. PT NOW IN HI FLOW FIO2 35% WITH 30L ON,[id number]
--- NOTE | 2022-10-17 17:49 | NUR ---
10/17/22 RD FOLLOW UP COMPLETED.PLEASE REFER TO NUTRITION ASSESSMENT UNDER CARE ACTIVITY FOR ESTIMATED NUTRITIONAL NEEDS. 1. CONTINUE CARDIAC DIET, ENSURE 1/DAY (PROVIDES 350 KCAL AND 20 GM PROTEIN DAILY), AND JOSIAH 1X/DAY (80 KCAL, 2.5 GRAMS PROTEIN) TO PROMOTE WOUND HEALING 2. MONITOR PO INTAKE AND NUTRITION RELATED LAB VALUES 3. RD TO FOLLOW-UP IN 3-5 DAYS PATIENT IS MODERATE RISK. JONEL JEFFERY RD
--- NOTE | 2022-10-17 19:30 | NUR ---
RECEIVED PATIENT ON BED, IS ALERT AND ORIENTED, ON HIGH FLOW 30L, FI02 35%, NO SIGNS OF DISTRESS NOTED, CALL LIGHT WITHIN REACH.
[2022-10-17 20:00] VITALS: BP 104/51
--- NOTE | 2022-10-17 21:00 | NUR ---
SCHEDULED MEDICATIONS GIVEN ORDERED.
--- NOTE | 2022-10-17 22:00 | NUR ---
PICC LINE PLACEMENT ON RIGHT UPPER ARM, DOUBLE LUMEN, GOOD TO USE PER REPORT.
[2022-10-18] VITALS: BP 96/53
--- NOTE | 2022-10-18 00:10 | NUR ---
VITALS T 98.3, P 87, BP 96/53, RESP 20, O2 SATS 95% ON HIGH FLOW.
--- NOTE | 2022-10-18 02:12 | NUR ---
BEDSIDE CARE DONE. PATIENT HOB ELEVATED. NO SIGNS OF DISTRESS NOTED, PATIENT KEEPS ON CALLING OUT, DENIES PAIN WHEN ASKED. ALL SAFETY MEASURES IN PLACE.
[2022-10-18 04:00] VITALS: BP 95/58
[2022-10-18] MEDS: PIPERACILLIN/TAZOBACTAM 3.375 GM in DEXTROSE 5% 50 ML IV SCH ×3 (04:19→20:05)
--- NOTE | 2022-10-18 04:19 | NUR ---
BEDSIDE CARE DONE. SCHEDULED IV ANTIBIOTIC GIVEN ORDERED. NO SIGNS OF DISTRESS NOTED, NO SIGNS OF PAIN NOTED. ALL SAFETY MEASURES IN PLACE.
--- NOTE | 2022-10-18 07:15 | NUR ---
ENDORSED TO DAY NURSE FOR CONTINUITY OF CARE. PATIENT IN STABLE CONDITION.
[2022-10-18 07:42] LABS: BASOPHILS % (AUTO) 0.5 % (0.0-2.0); EOSINOPHILS # (AUTO) 0.3 K/uL (0-0.4); EOSINOPHILS % (AUTO) 4.4 % (0.0-4.0); HEMATOCRIT 25.9 % (36-52); HEMOGLOBIN 8.4 g/dL (12.0-18.0); LYMPHOCYTES # (AUTO) 0.4 K/uL (2.0-11.5); LYMPHOCYTES % (AUTO) 7.2 % (20.5-51.1); MEAN CORPUSCULAR HEMOGLOBIN 28 pg (27-31); MEAN CORPUSCULAR HGB CONC 33 g/dL (33-37); MEAN CORPUSCULAR VOLUME 84.8 fL (80-94); MONOCYTES # (AUTO) 0.8 K/uL (0.8-1.0); MONOCYTES % (AUTO) 13.9 % (1.7-9.3); NEUTROPHILS # (AUTO) 4.2 K/uL (1.8-7.7); PLATELET COUNT (AUTO) 142 K/uL (140-450); RED BLOOD CELL COUNT(AUTO) 3.06 MIL/uL (4.20-6.10); RED CELL DISTRIBUTION WIDTH 22.1 % (11.6-13.7); WHITE BLOOD COUNT (AUTO) 5.7 K/uL (4.8-10.8)
[2022-10-18 08:00] VITALS: BP 113/54
[2022-10-18 08:10] LABS: ANION GAP 6.2 (8-16); CARBON DIOXIDE 38.3 mmol/L (21-32); CREATININE 0.7 mg/dL (0.6-1.3)
[2022-10-18 08:18] LABS: MAGNESIUM 1.5 mg/dL (1.8-2.4); PHOSPHORUS 3.7 mg/dL (2.5-4.9)
[2022-10-18 08:38] LABS: POTASSIUM 2.5 mmol/L (3.5-5.1)
[2022-10-18] MEDS: ACETAZOLAMIDE SOD 250 MG TAB PO SCH ×2 (09:00→20:05)
[2022-10-18] MEDS: PANTOPRAZOLE 40 MG INJ VIAL IVP SCH (10:21)
[2022-10-18] MEDS: DOCUSATE SODIUM 100 MG GELCAP PO SCH ×2 (10:21→20:05)
[2022-10-18] MEDS: FUROSEMIDE 40 MG/4 ML VIAL IVP SCH ×2 (10:21→20:05)
[2022-10-18] MEDS: MAGNESIUM OXIDE 400 MG TAB PO SCH (10:22)
[2022-10-18] MEDS: ALBUTEROL 0.083% 2.5 MG/3 ML NEBU INH SCH ×2 (10:39→19:18)
[2022-10-18] MEDS: IPRATROPIUM 0.02% 0.5 MG/2.5 ML NEBU INH SCH ×2 (10:39→19:18)
[2022-10-18] MEDS ORDERED: KCL 20 MEQ IN 100 mL PREMIX 100 ML IV SCH (11:00)
[2022-10-18 12:00] VITALS: BP 105/53
--- NOTE | 2022-10-18 12:31 | NUR ---
Patient unable to consent for CT angio. No family listing per patient. Will endorse.
[2022-10-18] MEDS: Z-GUARD PASTE TP SCH (13:30)
[2022-10-18] MEDS ORDERED: MAG SULF 2000 MG/WATER PREMIX 50 ML IV SCH (14:00)
--- NOTE | 2022-10-18 15:51 | NUR ---
DC PLANNING SW ATTEMPTED TO MEET PT AT BEDSIDE TO COMPLETE ASSESSMENT, HOWEVER, PT STRUGGLED TO PARTICIPATE. PT EYES CLOSED AND YELLED WHEN SPOKEN TO, UNSURE IF PT UNDERSTANDING SW PROMPTS. SW TO FOLLOW.
[2022-10-18] MEDS: POTASSIUM CHLORIDE 10 MEQ TABER PO PRN (15:55)
[2022-10-18 16:00] VITALS: BP 103/57
[2022-10-18] MEDS ORDERED: ALBUMIN HUMAN 25% 50 ML IV SCH (16:00)
--- NOTE | 2022-10-18 19:15 | NUR ---
RECEIVED PT IN BED ASLEEP, AROUSABLE BY VERBAL STIMULI, ONCE AWAKE STARTED CURSING. NO S/SX OF PAIN NOR DISCOMFORT. NO ACUTE RESPIRATORY DISTRESS NOTED. SAFETY PRECAUTIONS IN PLACE, CALL LIGHT IN REACH.
[2022-10-18 20:00] VITALS: BP 98/60
--- NOTE | 2022-10-18 20:05 | NUR ---
PATIENT REFUSED COLACE ORDERED. PT SCREAMING AND CURSING.
--- NOTE | 2022-10-18 22:00 | NUR ---
PM CARE RENDERED, REPOSITIONED PT. CHANGED GOWN AND LINENS, NOTED WEEPING IN BILATERAL ARMS.
--- NOTE | 2022-10-18 22:18 | NUR ---
PATIENT REFUSED CT SCAN ORDERED, PT IS SCREAMING AND CURSING. INFORMED DR. WILLOUGHBY. STITCH RUBBER AWARE.
[2022-10-19] VITALS: BP 110/55
[2022-10-19] MEDS: ACETAMINOPHEN 325 MG TAB PO PRN ×2 (01:09→11:44)
--- NOTE | 2022-10-19 01:40 | NUR ---
PT INSISTED HE BE PLACED ON BIPAP DESPITE TOLERATING HFNC WELL. SETTINGS ARE 14/6 R16 30%. PT SPO2 97%. WILL CONT TO MONITOR.
--- NOTE | 2022-10-19 01:40 | NUR ---
PT IS WEARING GLASSES UNDER BIPAP MASK. RT CAUTIONED PT OF SKIN BREAKDOWN, PT REFUSED REMOVING THEM.
--- NOTE | 2022-10-19 01:43 | NUR ---
RT PLACED PT ON BIPAP PER PT'S REQUEST. PULLED UP AND MADE COMFORTABLE IN BED. CALL LIGHT PLACED IN REACH.
--- NOTE | 2022-10-19 02:09 | NUR ---
PATIENT IS ASLEEP. NO S/SX OF APIN NOR DISCOMFORT. ON BIPAP TOLERATING WELL SAT AT 98%.
[2022-10-19 04:00] VITALS: BP 98/59
[2022-10-19] MEDS: PIPERACILLIN/TAZOBACTAM 3.375 GM in DEXTROSE 5% 50 ML IV SCH ×3 (04:34→20:32)
--- NOTE | 2022-10-19 05:00 | NUR ---
REFUSED AM CARE. REFUSED TO TAKE OFF EYEGLASSES EVEN WITH BIPAP MASK ON.
[2022-10-19 05:31] LABS: BASOPHILS % (AUTO) 0.8 % (0.0-2.0); EOSINOPHILS # (AUTO) 0.2 K/uL (0-0.4); EOSINOPHILS % (AUTO) 3.7 % (0.0-4.0); HEMATOCRIT 24.5 % (36-52); LYMPHOCYTES # (AUTO) 0.4 K/uL (2.0-11.5); LYMPHOCYTES % (AUTO) 10.1 % (20.5-51.1); MEAN CORPUSCULAR HEMOGLOBIN 28 pg (27-31); MEAN CORPUSCULAR HGB CONC 33 g/dL (33-37); MEAN CORPUSCULAR VOLUME 83.8 fL (80-94); MONOCYTES # (AUTO) 0.7 K/uL (0.8-1.0); MONOCYTES % (AUTO) 15.9 % (1.7-9.3); NEUTROPHILS # (AUTO) 3.1 K/uL (1.8-7.7); NEUTROPHILS % (AUTO) 69.5 % (42.2-75.2); PLATELET COUNT (AUTO) 131 K/uL (140-450); RED BLOOD CELL COUNT(AUTO) 2.92 MIL/uL (4.20-6.10); RED CELL DISTRIBUTION WIDTH 21.6 % (11.6-13.7); WHITE BLOOD COUNT (AUTO) 4.4 K/uL (4.8-10.8)
[2022-10-19 05:53] LABS: PHOSPHORUS 3.3 mg/dL (2.5-4.9)
--- NOTE | 2022-10-19 06:20 | NUR ---
PATIENT IS ASLEEP. NO ACUTE RESPIRATORY DISTRESS. ALL NEEDS ATTENDED TO. SAFETY PRECAUTIONS MAINTAINED WITHIN REACH.
[2022-10-19 09:28] LABS: ANION GAP 8.7 (8-16); CARBON DIOXIDE 36.7 mmol/L (21-32); CREATININE 0.7 mg/dL (0.6-1.3)
[2022-10-19 09:30] LABS: POTASSIUM 2.4 mmol/L (3.5-5.1)
[2022-10-19] MEDS: FUROSEMIDE 40 MG/4 ML VIAL IVP SCH (09:46)
[2022-10-19] MEDS: PANTOPRAZOLE 40 MG INJ VIAL IVP SCH (09:46)
[2022-10-19] MEDS: MAGNESIUM OXIDE 400 MG TAB PO SCH (09:46)
[2022-10-19] MEDS: DOCUSATE SODIUM 100 MG GELCAP PO SCH ×2 (09:46→20:32)
[2022-10-19] MEDS: POTASSIUM CHLORIDE 10 MEQ TABER PO PRN (09:47)
[2022-10-19] MEDS: ACETAZOLAMIDE SOD 250 MG TAB PO SCH ×2 (09:47→20:33)
[2022-10-19] MEDS: IPRATROPIUM 0.02% 0.5 MG/2.5 ML NEBU INH SCH ×3 (11:24→19:35)
[2022-10-19] MEDS: ALBUTEROL 0.083% 2.5 MG/3 ML NEBU INH SCH ×3 (11:24→19:35)
[2022-10-19] MEDS ORDERED: POTASSIUM CHL 40 MEQ/ D5-1/2NS 1,000 ML IV SCH (12:30)
[2022-10-19] MEDS: Z-GUARD PASTE TP SCH (13:00)
[2022-10-19] MEDS ORDERED: KCL 20 MEQ IN 100 mL PREMIX 200 ML IV SCH (13:00)
[2022-10-19 13:55] VITALS: BP 122/81
[2022-10-19 16:00] VITALS: BP 120/75
--- NOTE | 2022-10-19 16:08 | NUR ---
DC PLANNING ASSESSMENT COMPLETE PLEASE REFER TO ASSESSMENT FOR ADDITIONAL DETAILS PT STRUGGLED TO COMPLETE ASSESSMENT AND INITIALLY DECLINED TO ANSWER SW PROMPTS. PT YELLING AND WOULD ONLY ANSWER PROMPTS HE CHOSE TO . PT REFUSED TO ADD EC. PT REPORTS HE DOES NOT WANT TO ADD ANY EMERGENCY CONTACTS. EXPLAINED TO PT IMPORTANCE OF ADDING EC. PT VERBALIZED UNDERSTANDING AND CONTINUED TO DECLINE TO ADD EC. PT IS A 61 YR OLD MALE ADMITTED TO [facility] FROM HOME WITH SOB, AND ASTHMA EXACERBATION. PT HAS PAST MEDICAL HX OF COPD, ASTHMA & HYPERTENSION. PT REPORTS LIMITED FAMILY INVOLVEMENT AND REFUSED TO ADD EC. PT REPORTS RESIDING IN A HOTEL FOR THE LAST SEVERAL YRS ( 4.5YRS). PT REPORTS RECEIVING HH WITH [facility] FOR PT HOWEVER, STRUGGLED TO PROVIDE ADDITIONAL INFORMATION PT RESIDES IN A HOTEL AND HAS RESIDED IN HOT FOR 4.5 YRS. PT INITIALLY BELIEVED HE WAS AT [place]. EXPLAINED TO PT HE IS CURRENTLY AT [facility] AND ECPLAINED TO PT THERE IS CURRENTLY NO BEDS AT [facility] AT THE MOMENT. PT STRUGGLED/ REFUSED TO PARTICIPATE IN ASSESSMENT AND ONLY ANSWERED TO PROMPTS HE CHOSE TO. PT REQUESTING GENERAL HELPER COME IN TO MEET WITH HIM. CARLTON OUTREACHED TO PASTOR PALACIOS, . PASTOR PALACIOS TO COME IN AND SPEAK TO PT 10/19/22, ENDORSED TO PT NURSE, CHARGE NURSE AND PBX. Addendum: 10/19/22 at 1612 by Sebastian GARCIA Amended: Links added. Addendum: 10/22/22 at 1713 by Sebastian Chavira SS 10/21/22:PT REQUESTED SW ADD PASTOR PALACIOS TO EMERGENCY CONTACT. OUTREACHED TO PASTOR PALACIOS TO OBTAIN PERMISSION TO ADD EC. PASTOR PALACIOS PROVIDED PERMISSION TO BE ADDED. PT ALSO REQUESTED QUAN RUSS TRAUMA DOCTOR, BE ADDED [phone]. PASTOR PALACIOS REPORTS PT SPOKE WITH HIM AND REGISTERED SALES ASSISTANT AND ADDED TO PTS TRUST. 10/22/22 CARLTON AND MARILEE ATTEMPTED TO MEET PT AT BEDSIDE TO CONNECT PT WITH MARY VERAS, TO AID IN IDENTIFYING [facility] PLACEMENT IN LIEU OF HOTEL. HOWEVER, PT HEAVILY SLEEPING AND NOT AROUSABLE TO NAME BEING CALLED. MARY VERAS TO ATTEMPT TO MEET WITH PT AND AID IN [facility] PLACEMENT. Addendum: 10/25/22 at 1604 by Sebastian Chavira SS CARLTON MET WITH PT AT BEDSIDE TO INQUIRE ON MEETING W/ CRS REP. PT REPORTED NO VISITORS OVER THE WEEKEND. SW PROVIDED PT WITH INFORMATION ON CRS AND HIS WILLINGNESS TO IDENTIFY TABLE WORKER PACKAGER PLACEMENT WITH COST BETWEEN [phone] PER MONTH, PT IN AGREEMENT. MARILEE OUTREACHED TO CRS TO NOTIFY PT IN AGREEMENT WITH COST ASSOCIATED WITH CRS PLACEMENT. RITO MARY CURRENTLY AIDING IN PLACEMENT AND RETURNED CALL REPORTING SHE CURRENTLY HAS THREE OPTIONS FOR PATIENT. PT TO BE EVALUATED IN PERSON BY THREE IDENTIFIED PLACEMENTS. Addendum: 11/01/22 at 1228 by Sebastian Chavira SS CARLTON OUTREACHED TO PTS REGISTERED SALES ASSISTANT, QUAN RUSS, TO INQUIRE ON ADV OR POA IN PTS TRUST, HOWEVER, NO ANSWER . MESSAGE LEFT REQUESTING A RETURN PHONE CALL. OUTREACHED TO PASTOR PALACIOS TO INQUIRE ABOUT POA OR MDM WORKED ON WITH PT AND PTS REGISTERED SALES ASSISTANT, AT LAST VISIT. PASTOR PALACIOS REPORTS NOT REMEMBERING WHETHER MDM WAS DISCUSSED. PASTOR PALACIOS REPORTS HE HAS TO CONTACT TRAUMA DOCTOR TO INQUIRE ON POA/ADV/MDM. PASTOR PALACIOS REPORTS HAVING PTS SONS PHONE NUMBER, WHICH WAS GIVEN TO HIM BY PT. PASTOR PALACIOS REPORTS IF NEEDED HE WILL BE IN TOUCH WITH PTS SON. CARLTON TO FOLLOW Addendum: 11/03/22 at 1510 by Sebastian GARCIA FIELDED CALL FROM PTS REGISTERED SALES ASSISTANT QUAN RUSS CHANGE MANAGEMENT COORDINATOR, RITO RUSS. RITO REPORTS PT HAS SON HOWEVER, DID NOT PROVIDE CONTACT INFO. RITO REPORTS SHE AND QUAN TO REVIEW PTS WILL FOR MFM/ADV/HEALTHCARE POA. RITO REPORTS QUAN IN COURT PROCEEDINGS HOWEVER, WILL BE IN TOUCH IF FOUND. 10AM:CARLTON CALLED TO FRONT, PASTOR PALACIOS HERE TO SEE SW. SW AND CM MET WITH PASTOR PALACIOS, PASTOR PALACIOS REPORTS BEING IN TOUCH WITH PTS SON, ARACELI [phone] AND PROVIDING HIM WITH UPDATE. PT SON, ARACELI, FLEW IN FROM [place] 11/02 AND VISITED PT AT BEDSIDE HE WAS UPDATED ON PTS CONDITION BY PASTOR PALACIOS. ARACELI PROVIDED SW AND CM WITH UPDATE ON COMPLEX FAMILY HX. ARACELI REPORTS VISIT AT BEDSIDE WAS FIRST VISIT WITH PT FACE TO FACE HOWEVER, REPORTS BEING IN REGULAR CONTACT WITH PT SINCE . ARACELI REPORTS BEING IN TOUCH WITH PTS SISTER, DORA WHO HAS BEEN NOTIFIED PT IS IN HOSPITAL. ARACELI REPORTS PROVIDING FAMILY WITH UPDATED INFO GATHERED FROM PASTOR PALACIOS. ARACELI REPORTS WHILE MEETING WITH PT AT BEDSIDE PT WAS ABLE TO RESPOND WITH NODDING AND SHAKING OF HEAD. ARACELI REPORTS MEETING WITH PTS FAMILY LATER THIS EVENING AND REPORTS HE WILL COME BACK TO SEE PT WITH FAMILY. PT IS REPORTED TO BE AWARE OF PENDING FAMILY VISIT. ARACELI REPORTS BEING IN [place] FOR THE NEXT WEEK HOWEVER, WOULD EXTEND STAY IF NEEDED. ARACELI REPORTS HE WOULD LIKE TO AID IN DC PLAN TENTATIVE ON PTS WILLINGNESS TO ACCEPT. DR. DEVRIES DISCUSSED POC WITH PASTOR PALACIOS, PTS SON, CM AND SW. DR DEVRIES ANSWERED ANY AND ALL QUESTIONS ASKED. Addendum: 11/05/22 at 0931 by Sebastian Chavira FIELDED CALL FROM QUAN RUSS LAW OFFICE, AND SPOKE WITH CHANGE MANAGEMENT COORDINATOR YVON RUSS. YVON REPORTS SPEAKING W/ PTS TRAUMA DOCTOR QUAN TO INQUIRE ON ADV HLTH CARE DIRECTIVE AND REPORTS PT HAS DECLINED TO COMPLETE ADV HLTH CARE DIRECTIVE WHEN VISITED. Addendum: 11/08/22 at 1312 by Sebastian Chavira MET WITH PT AT BEDSIDE WITH TWO CM TO DISCUSS ADV HLTH CARE DIRECTIVE. PT REPORTS HIS TRAUMA DOCTOR TO MAKE MDM ON HIS BEHALF. CARLTON EXPLAINED TO PT THAT REGISTERED SALES ASSISTANT REPORTS NO ADV ON FILE INDICATING HE IS MDM. PT ADAMANT HE HAS ADV HLTH CARE DIRECTIVE, AGAIN EXPLAINED NO AD ON FILE WITH REGISTERED SALES ASSISTANT AND CONFIRMED WITH ATTORNEYS OFFICE. CARLTON PROVIDED PT WITH ADV. PT STATES " I WILL TAKE CARE OF IT WITH MY REGISTERED SALES ASSISTANT." PT ACCEPTED AD OFFERED BY CARLTON. Addendum: 11/09/22 at 0925 by Sebastian Chavira SS LATE ENTRY MET WITH PT AND PTS SONKACIE AT BEDSIDE AT 1315 SW CALLED TO PTS BEDSIDE TO DISCUSS DC PLANS. PT HAVING CATHETER REMOVED, THEREFORE, SW STEPPED OUT WITH PTS SON, KACIE. PT INQUIRING ON DC PLAN TO SNF VS. "[facility] HOME". CARLTON REPORTED TO PTS SON DC PLAN IS TO HAVE PT DC TO SNF TO RECEIVE SKILLED CARE ( PHYSICAL THERAPY) . SON INQUIRING ON TABLE WORKER PACKAGER DC PLAN , CARLTON EXPLAINED TO PTS SON, PT IS FREE TO MAKE DECISION ON WHERE HE'D LIKE TO GO ONCE COMPLETING SKILLED CARE. CARLTON EXPLAINED TO KACIE, PT FREE TO MAKE HIS OWN TABLE WORKER PACKAGER PLAN HE IS ANOX4 AND NOT UNDER GUARDIANSHIP INDICATING HE DOES NOT HAVE DECISION MAKING CAPACITY. KACIE IN UNDERSTANDING. KACIE REPORTS WORKING ON IDENTIFYING TABLE WORKER PACKAGER HOUSING IN [place]. SW ACKNOWLEDGED AND ENCOURAGED HIM TO SPEAK WITH PT. KACIE REPORTS, PT OUTREACHED TO HIS REGISTERED SALES ASSISTANT TO QUAN RUSS TO COMPLETE ADV HEALTHCARE DIRECTIVE FORM AND WOULD BE IN LATER THAT AFTERNOON TO SEE PT.
--- NOTE | 2022-10-19 19:30 | NUR ---
RECEIVED PT FROM DAY RN FOR CONTINUITY OF CARE,PT AWAKE , ALERT AND ORIENTED X 4 . NO S/SX OF PAIN NOR DISCOMFORT.ON 4L NC, SAT AT 96%. IV ON R UPPER ARM PICC, SL. NO ACUTE RESPIRATORY DISTRESS NOTED. SAFETY PRECAUTIONS IN PLACE, CALL LIGHT IN REACH. WILL CONTINUE TO MONITOR.
--- NOTE | 2022-10-19 19:40 | NUR ---
PT WAS ON 3LNC WITH INCREASED WOB. PLACED PT ON HFNC 30L 30% FIO2 AND HHN TX GIVEN. WOB IMPROVED, PT SPO2 97%. WILL CONT TO MONITOR.
[2022-10-19 20:00] VITALS: BP 93/52
[2022-10-19] MEDS: HYDROcodone/APAP 5/325 MG 1 TAB TAB PO PRN (20:32)
[2022-10-19] MEDS: methylPREDNISolone SS 40 MG/ML VIAL IVP SCH (20:32)
--- NOTE | 2022-10-19 21:40 | NUR ---
SCHEDULED MEDICATION GIVEN. PT TOLERATED WELL. WILL CONTINUE TO MONITOR.
[2022-10-19] MEDS: LACTULOSE 20 GM/30 ML UDC PO PRN (22:48)
--- NOTE | 2022-10-19 23:00 | NUR ---
REFUSED REPOSITIONING AND PM CARE AT THIS TIME. NO S/SX OF DISTRESS. WILL CONTINUE TO MONITOR.
[2022-10-20] VITALS: BP 96/62
--- NOTE | 2022-10-20 00:20 | NUR ---
PT HAS A SMALL BOWEL MOVEMENT. PT CLEANED AND REPOSITIONED. WILL CONTINUE TO MONITOR.
[2022-10-20 04:00] VITALS: BP_SYST 114; BP_SYST 98; BP_DIAS 59; BP_DIAS 67
[2022-10-20] MEDS: PIPERACILLIN/TAZOBACTAM 3.375 GM in DEXTROSE 5% 50 ML IV SCH ×3 (05:16→22:21)
[2022-10-20 05:26] LABS: BASOPHILS % (AUTO) 0.1 % (0.0-2.0); EOSINOPHILS % (AUTO) 0.1 % (0.0-4.0); HEMATOCRIT 25.6 % (36-52); HEMOGLOBIN 8.5 g/dL (12.0-18.0); LYMPHOCYTES # (AUTO) 0.2 K/uL (2.0-11.5); LYMPHOCYTES % (AUTO) 3.5 % (20.5-51.1); MEAN CORPUSCULAR HEMOGLOBIN 28 pg (27-31); MEAN CORPUSCULAR HGB CONC 33 g/dL (33-37); MEAN CORPUSCULAR VOLUME 83.4 fL (80-94); MONOCYTES # (AUTO) 0.3 K/uL (0.8-1.0); MONOCYTES % (AUTO) 5.2 % (1.7-9.3); NEUTROPHILS # (AUTO) 6.1 K/uL (1.8-7.7); NEUTROPHILS % (AUTO) 91.1 % (42.2-75.2); PLATELET COUNT (AUTO) 148 K/uL (140-450); RED BLOOD CELL COUNT(AUTO) 3.07 MIL/uL (4.20-6.10); RED CELL DISTRIBUTION WIDTH 21.4 % (11.6-13.7); WHITE BLOOD COUNT (AUTO) 6.7 K/uL (4.8-10.8)
[2022-10-20 05:52] LABS: MAGNESIUM 1.7 mg/dL (1.8-2.4); PHOSPHORUS 2.5 mg/dL (2.5-4.9)
[2022-10-20 06:03] LABS: ANION GAP 9.5 (8-16); CARBON DIOXIDE 35.5 mmol/L (21-32); CREATININE 0.8 mg/dL (0.6-1.3)
--- NOTE | 2022-10-20 06:41 | NUR ---
PT IS STABLE. NO ACUTE EVENTS THROUGHOUT THE NIGHT. NO S/SX OF DISTRESS OF THE MOMENT. NO COMPLAINS OF PAIN. ALL PRECAUTIONS IN PLACE. CALL LIGHT WITHIN REACH. WILL ENDORSE TO DAY SHIFT NURSE.
--- NOTE | 2022-10-20 07:16 | NUR ---
RECEIVED REPORT FROM SUPERVISOR DENTAL LABORATORY NURSE, CELIA, FOR CONTINUITY OF CARE. PT IN BED AT THIS TIME. YELLING AND TELLING STAFF "YOU NEED TO TURN ME RIGHT NOW". ASSISTED PT WITH TURNING, PT CONTINUES TO YELL AT STAFF. RESPIRATIONS ARE EVEN AND UNLABORED, ON 30L. NO SIGNS OF DISTRESS NOTED. ABD IS NONTENDER, SOME DISTENTION NOTED. BOWEL SOUNDS PRESENT IN ALL QUADRANTS. PT LAST BM THIS MORNING. PT HAS FULL ROM TO UPPER AND LOWER EXTREMITIES. CALL LIGHT WITHIN REACH. ALL SAFETY MEASURES IN PLACE.
[2022-10-20 08:00] VITALS: BP 108/61
--- NOTE | 2022-10-20 08:00 | NUR ---
Patient's Plan of Care was discussed and reviewed with FOOD TRUCK CATERER: JUNE
[2022-10-20] MEDS: LACTULOSE 20 GM/30 ML UDC PO PRN (08:42)
[2022-10-20] MEDS: DOCUSATE SODIUM 100 MG GELCAP PO SCH ×2 (08:43→22:21)
[2022-10-20] MEDS: MAGNESIUM OXIDE 400 MG TAB PO SCH (08:43)
[2022-10-20] MEDS: FUROSEMIDE 20 MG/2 ML VIAL IVP SCH (08:53)
[2022-10-20] MEDS: methylPREDNISolone SS 40 MG/ML VIAL IVP SCH ×2 (08:54→22:20)
[2022-10-20] MEDS: PANTOPRAZOLE 40 MG INJ VIAL IVP SCH (08:54)
[2022-10-20] MEDS: ACETAZOLAMIDE SOD 250 MG TAB PO SCH ×2 (09:00→22:21)
--- NOTE | 2022-10-20 09:00 | NUR ---
ADMINISTERED ALL SCHEDULED MEDICATIONS. PT TOLERATED WELL.
[2022-10-20] MEDS: IPRATROPIUM 0.02% 0.5 MG/2.5 ML NEBU INH SCH ×3 (09:05→19:03)
[2022-10-20] MEDS: ALBUTEROL 0.083% 2.5 MG/3 ML NEBU INH SCH ×3 (09:06→19:03)
--- NOTE | 2022-10-20 10:12 | NUR ---
PT CALLING/YELLING OUT. PT STATES HE WANTS HIS PHONE CHARGED. EDUCATED PT ON USE OF CALL LIGHT AND WHEN TO USE IT. PT STATES "I DONT CARE, ILL YELL TO GET YOU TO COME".
[2022-10-20 12:00] VITALS: BP 98/65
--- NOTE | 2022-10-20 12:03 | NUR ---
PT IN BED HUNCHED OVER. REMOVED BIPAP. EDUCATED PT NEED FOR BIPAP. PT REFUSING TO LAY BACK IN BED. STAYED WITH PT. PT ASKING NURSE TO FIX HIS BED AND PLACE HIM IN A MORE COMFORTABLE POSITION. ASSISTED PT BACK INFO COMFORTABLE POSITION.
[2022-10-20] MEDS: Z-GUARD PASTE TP SCH (13:00)
[2022-10-20 14:35] LABS: PROTHROMBIN TIME 12.2 secs (10.8-13.4)
--- NOTE | 2022-10-20 14:36 | NUR ---
PT CALLING OUT/YELLING AGAIN. STATES HIS MASTERS CATHETER IS LEAKING. CHECKED MASTERS CATHETER, NO LEAKS NOTED. PT MADE AWARE. PT THEN STATED HE NEEDS STAFF TO FIX HIS GLASSES. CLEANED UP PT GLASSES. PT NOW STATES HE WANTS STAFF TO SCRATCH HIS BACK AND RUB.
[2022-10-20 16:00] VITALS: BP 97/61
[2022-10-20] MEDS ORDERED: LORazepam 2 MG/ML VIAL IVP PRN (16:25)
--- NOTE | 2022-10-20 16:33 | NUR ---
CALLED [facility] TO FOLLOW UP TO SEE IF PT WAS GOING TO HAVE THORACENTESIS DONE. PER [facility] STAFF, THEY DID NOT SEE PT LABS UNTIL 1500 AND THE RADIOLOGIST WAS GONE BY THEN, THEREFORE THEY WILL DO THORACENTESIS FIRST THING TOMORROW MORNING.
--- NOTE | 2022-10-20 17:45 | NUR ---
DID ROUNDS ON PT. PT AGAIN SITTING UP HUNCHED OVER IN BED. CONTINUES TO TRY TO REMOVE BIPAP AND CONTINUES TO YELL OUT. ASSISTED PT BACK INTO BED.
--- NOTE | 2022-10-20 19:12 | NUR ---
PT HAD REMOVED HFNC ANDSITTING UP HUNCHED OVER ON BED. I PUT HF BACK ON PT AND SPO2 QUICKLY INCREASED TO 95%. PT NOT COOPERATING VERY WELL AND TOOK A WHILE TO SIT BACK SO THAT PT CAN RECIEVE BREATHING TX. NO SOB WITH EQUAL BILAT CHEST RISE.
--- NOTE | 2022-10-20 19:48 | NUR ---
ENDORSED PT TO ROCKET PROPELLANT PLANT SUPERVISOR NURSEPAULINO, FOR CONTINUITY OF CARE. PT IS STABLE.
--- NOTE | 2022-10-20 19:49 | NUR ---
RECEIVED PATIENT FROM AM SHIFT. PATIENT SITTING IN BED. ON HIGH FLOW AT 25L FIO2 28 SATING 93%. ALL SAFETY MEASURES IN PLACE. MASTERS CATHETER DRAINING BLOODY URINE. CALL LIGHT WITHIN REACH. IV ACCESS TO RIGHT UPPER ARM PICC LINE. NO COMPLAINTS OF PAIN AT THIS TIME. WILL CONTINUE TO MONITOR PT.
[2022-10-20 20:00] VITALS: BP 97/61
--- NOTE | 2022-10-20 22:20 | NUR ---
DUE MEDS GIVEN PER MD ORDER. TOLERATED WELL.
[2022-10-21] VITALS: BP 106/78
[2022-10-21 04:00] VITALS: BP 126/51
[2022-10-21] MEDS: PIPERACILLIN/TAZOBACTAM 3.375 GM in DEXTROSE 5% 50 ML IV SCH (05:02)
[2022-10-21 05:34] LABS: BASOPHILS % (AUTO) 0.2 % (0.0-2.0); HEMATOCRIT 26.3 % (36-52); HEMOGLOBIN 8.7 g/dL (12.0-18.0); LYMPHOCYTES # (AUTO) 0.3 K/uL (2.0-11.5); LYMPHOCYTES % (AUTO) 3.4 % (20.5-51.1); MEAN CORPUSCULAR HEMOGLOBIN 27 pg (27-31); MEAN CORPUSCULAR HGB CONC 33 g/dL (33-37); MONOCYTES # (AUTO) 0.4 K/uL (0.8-1.0); MONOCYTES % (AUTO) 4.7 % (1.7-9.3); NEUTROPHILS # (AUTO) 8.2 K/uL (1.8-7.7); NEUTROPHILS % (AUTO) 91.7 % (42.2-75.2); PLATELET COUNT (AUTO) 155 K/uL (140-450); RED BLOOD CELL COUNT(AUTO) 3.17 MIL/uL (4.20-6.10)
--- NOTE | 2022-10-21 06:18 | NUR ---
ALL NEEDS ATTENDED AND MET THROUGHOUT THE SHIFT.
[2022-10-21 06:21] LABS: MAGNESIUM 1.7 mg/dL (1.8-2.4); PHOSPHORUS 2.7 mg/dL (2.5-4.9)
[2022-10-21 06:22] LABS: ANION GAP 7.4 (8-16); CARBON DIOXIDE 37.6 mmol/L (21-32); CREATININE 0.7 mg/dL (0.6-1.3)
--- NOTE | 2022-10-21 07:22 | NUR ---
RECEIVED ON A VAPOTHERM HIGH FLOW NASAL CANNULA WITH COMPRESSOR ON PLUGGED INTO RED OUTLET TOLERATING WELL WITHOUT ADVERSE REACTIONS NOTED RESTING COMFORTABLY GOOD CHEST RISE
--- NOTE | 2022-10-21 07:23 | NUR ---
GAVE REPORT TO DAY SHIFT NURSE FOR CONTINUITY OF CARE.
--- NOTE | 2022-10-21 07:24 | NUR ---
RECEIVED REPORT FROM SKIN DRIER NURSE. PT IS STABLE NO SIGNS OF DISTRESS. ASLEEP IN BED, WOKE TO NAME AND TOUCH. REORIENTED PT TO CALL LIGHT. NO FURTHER NEEDS ARE TO BE MET AT THIS TIME. WILL CONTINUE WITH CARE.
[2022-10-21] MEDS: ALBUTEROL 0.083% 2.5 MG/3 ML NEBU INH SCH ×3 (07:28→19:12)
[2022-10-21] MEDS: IPRATROPIUM 0.02% 0.5 MG/2.5 ML NEBU INH SCH ×3 (07:28→19:12)
[2022-10-21 08:00] VITALS: BP 110/65
[2022-10-21] MEDS: MAGNESIUM OXIDE 400 MG TAB PO SCH (09:38)
[2022-10-21] MEDS: PANTOPRAZOLE 40 MG INJ VIAL IVP SCH (09:39)
[2022-10-21] MEDS: DOCUSATE SODIUM 100 MG GELCAP PO SCH ×3 (09:39→21:38)
[2022-10-21] MEDS: FUROSEMIDE 20 MG/2 ML VIAL IVP SCH (09:39)
[2022-10-21] MEDS: POTASSIUM CHLORIDE 10 MEQ TABER PO PRN (09:47)
[2022-10-21] MEDS: ACETAZOLAMIDE SOD 250 MG TAB PO SCH ×3 (09:47→21:39)
[2022-10-21] MEDS: methylPREDNISolone SS 40 MG/ML VIAL IVP SCH ×2 (09:47→21:38)
[2022-10-21 12:00] VITALS: BP 94/54
--- NOTE | 2022-10-21 12:29 | NUR ---
PATIENT SITTING UP IN BED WITH HEAD BOWED DOWN; RUBY/RN AND LITHOGRAPHIC PRESS FEEDER ENCOURAGING PATIENT TO LAY BACK DOWN WITH NO SUCCESS; ALL SIDE RAILS UP; HHN THERAPY GIVEN VIA BLOW BY
[2022-10-21] MEDS: Z-GUARD PASTE TP SCH (13:00)
--- NOTE | 2022-10-21 14:44 | NUR ---
10/21/22 RD FOLLOW UP COMPLETED PLEASE REFER TO NUTRITION ASSESSMENT UNDER CARE ACTIVITY FOR ESTIMATED NUTRITIONAL NEEDS. 1. CONTINUE CARDIAC DIET, ENSURE 1/DAY (PROVIDES 350 KCAL AND 20 GM PROTEIN DAILY), AND JOSIAH BID (160 KCAL, 5 GRAMS PROTEIN) TO PROMOTE WOUND HEALING 2. MONITOR PO INTAKE AND NUTRITION RELATED LAB VALUES 3. RD TO FOLLOW-UP 7 DAYS, LOW RISK REVIEWED BY MARVA OSORIO RD
--- NOTE | 2022-10-21 15:00 | NUR ---
@1420: PT WITH DR AT BEDSIDE PERFORMING THORACENTESIS TO LEFT SIDE. PT IS STABLE, NO SIGNS OF DISTRESS. TOLERATING PROCEDURE WELL. WILL CONTINUE WITH CARE. @1450: THORACENTESIS DONE. 1.2L OUT FROM LEFT SIDE. PT IS STABLE, NO SIGNS OF DISTRESS. NO REPORTS OF PAIN OR DISCOMFORT, WILL CONTINUE WITH CARE.
--- NOTE | 2022-10-21 15:52 | NUR ---
INCREASED FIO2 TO 40%. PT SATS DROPPED TO 86%. PT IN A DEEP SLEEP
[2022-10-21 16:00] VITALS: BP 108/52
[2022-10-21] MEDS: MAG SULF 2000 MG/WATER PREMIX 50 ML IV PRN (18:14)
--- NOTE | 2022-10-21 19:00 | NUR ---
ENDORSED PT TO REGIONAL CRA NURSE FOR CONTINUITY OF CARE. PT IS ASLEEP IN BED, WOKE TO NAME AND TOUCH, NO REPORTS OF PAIN OR DISCOMFORT. VITAL SIGNS STABLE.
--- NOTE | 2022-10-21 19:10 | NUR ---
RECEIVED PATIENT AWAKE IN BED IN NO ACUTE DISTRESS. HIGH FLOW O2 AT 25L FIO2 40. MASTERS CATHETER IN PLACE. DENIES PAIN. CALL LIGHT WITHIN REACH. WILL CONTINUE TO MONITOR.
[2022-10-21 20:00] VITALS: BP 94/41
[2022-10-21] MEDS: LACTULOSE 20 GM/30 ML UDC PO PRN ×2 (21:39→22:25)
--- NOTE | 2022-10-21 21:50 | NUR ---
PATIENT REFUSED PO MEDICATIONS.
--- NOTE | 2022-10-21 23:45 | NUR ---
ASSUMED CARE FOR PATIENT. PATIENT LYING ON THE BED, IN NO SIGNS OF ACUTE DISTRESS , PATIENT ON HIGH FLOW 02 25L, FI02 40%, PATIENT HAS RIGHT UPPER ARM PICC LINE DOUBLE LUMEN, MASTERS CATHETER DRAINING YELLOW COLORED URINE TO BAG VIA GRAVITY. ALL SAFETY MEASURES IN PLACE.
--- NOTE | 2022-10-21 23:45 | NUR ---
GAVE REPORT TO GÉNESIS RICHARD FOR CONTINUITY OF CARE
[2022-10-22] VITALS: BP 98/56
--- NOTE | 2022-10-22 00:10 | NUR ---
VITALS TAKEN T 98.2, P 70, BP 98/56, RESP 20 AND O2 SATS 96%.
[2022-10-22 04:00] VITALS: BP 93/59
--- NOTE | 2022-10-22 04:10 | NUR ---
BEDSIDE CARE DONE. NO SIGNS OF DISTRESS NOTED.
[2022-10-22 06:00] LABS: BASOPHILS % (AUTO) 0.2 % (0.0-2.0); HEMATOCRIT 26.4 % (36-52); HEMOGLOBIN 8.8 g/dL (12.0-18.0); LYMPHOCYTES # (AUTO) 0.3 K/uL (2.0-11.5); LYMPHOCYTES % (AUTO) 2.8 % (20.5-51.1); MEAN CORPUSCULAR HEMOGLOBIN 28 pg (27-31); MEAN CORPUSCULAR HGB CONC 33 g/dL (33-37); MEAN CORPUSCULAR VOLUME 82.8 fL (80-94); MONOCYTES # (AUTO) 0.5 K/uL (0.8-1.0); MONOCYTES % (AUTO) 4.7 % (1.7-9.3); NEUTROPHILS # (AUTO) 9.9 K/uL (1.8-7.7); NEUTROPHILS % (AUTO) 92.3 % (42.2-75.2); PLATELET COUNT (AUTO) 177 K/uL (140-450); RED BLOOD CELL COUNT(AUTO) 3.19 MIL/uL (4.20-6.10); RED CELL DISTRIBUTION WIDTH 20.9 % (11.6-13.7); WHITE BLOOD COUNT (AUTO) 10.7 K/uL (4.8-10.8)
[2022-10-22 06:25] LABS: ANION GAP 5.7 (8-16); CREATININE 0.7 mg/dL (0.6-1.3); POTASSIUM 2.7 mmol/L (3.5-5.1)
[2022-10-22 06:29] LABS: MAGNESIUM 2.3 mg/dL (1.8-2.4); PHOSPHORUS 2.9 mg/dL (2.5-4.9)
--- NOTE | 2022-10-22 07:17 | NUR ---
ENDORSED PATIENT TO DAY NURSE FOR CONTINUITY OF CARE. PATIENT IN STABLE CONDITION.
[2022-10-22] MEDS: ALBUTEROL 0.083% 2.5 MG/3 ML NEBU INH SCH ×3 (07:22→19:00)
[2022-10-22] MEDS: IPRATROPIUM 0.02% 0.5 MG/2.5 ML NEBU INH SCH ×3 (07:22→19:00)
[2022-10-22 08:00] VITALS: BP 111/55
--- NOTE | 2022-10-22 08:00 | NUR ---
NURSE REPORT REPORT OBTAINED FROM ELMER NURSE GÉNESIS AND THIS NURSE ASSUMED CARE OF PATIENT. VSS. AFEB. NO C/O PAIN OR DISCOMFORT. RAS GILLESPIE RN
[2022-10-22] MEDS: FUROSEMIDE 20 MG/2 ML VIAL IVP SCH (08:31)
[2022-10-22] MEDS: PANTOPRAZOLE 40 MG INJ VIAL IVP SCH (08:32)
[2022-10-22] MEDS: methylPREDNISolone SS 40 MG/ML VIAL IVP SCH ×2 (08:33→22:01)
[2022-10-22] MEDS: POTASSIUM CHLORIDE 10 MEQ TABER PO PRN ×2 (08:34→09:01)
[2022-10-22] MEDS: DOCUSATE SODIUM 100 MG GELCAP PO SCH ×2 (08:36→22:02)
[2022-10-22] MEDS: LACTULOSE 20 GM/30 ML UDC PO PRN (08:39)
[2022-10-22] MEDS: MAGNESIUM OXIDE 400 MG TAB PO SCH (09:00)
[2022-10-22] MEDS: ACETAZOLAMIDE SOD 250 MG TAB PO SCH ×2 (09:00→21:00)
--- NOTE | 2022-10-22 09:54 | NUR ---
WOUND CARE RE-EVALUATION NOTE: SACRAL COCCYX WOUND STAY SAME CONDITION, NO FURTHER IMPROVEMENT NOTICE. PT. LIKES TO SIT UP AT UPRIGHT POSITION DUE TO HIS RESPIRATORY /SOB ISSUE. POC DISCUSSED WITH PT. POSITIONING TO LEFT SIDE LYING, HOB AT 45 DEGREE. PT REFUSES TO GET DOWN LOWER. RISKS AND BENIFITS EXPLAINED. POC DISCUSSED WITH PT. PT VERBALIZES UNDERSTANDING. WILL CONTINUE WOUND / SKIN CARE ORDERED. -SACRALCOCCYX PRESSURE INJURY STAGE 2 WITH 1 X 1 X 0.1 CM. WOUND BED PINK,MOIST, NO ODOR. NATALY-WOUND SKIN BLANCHABLE REDNESS AND INTACT.
--- NOTE | 2022-10-22 10:01 | NUR ---
MD COMMUNICATION DR VINCENT NOTIFIED OF K 2.7 AND PATIENT WOULD NOT TAKE PO AND EVEN EAT FOOD. ORDERED KCL IV 40MEQ K-RIDER. RAS GILLESPIE RN
[2022-10-22] MEDS ORDERED: KCL 20 MEQ IN 100 mL PREMIX 200 ML IV SCH (10:30)
[2022-10-22 12:00] VITALS: BP 93/59
--- NOTE | 2022-10-22 12:16 | NUR ---
NURSE NOTES VSS. AFEB. TELE WITH SR 70. NO C/O PAIN OR DISCOMFORT. O2 25 L/MIN HI DIOGENES O2, 40% FIO2. IV POTASSIUM 40 MEQ INFUSING THRU PICC IN LOR.
[2022-10-22] MEDS: PIPERACILLIN/TAZOBACTAM 3.375 GM in DEXTROSE 5% 50 ML IV SCH ×2 (13:00→22:00)
[2022-10-22] MEDS: Z-GUARD PASTE TP SCH (13:00)
[2022-10-22 16:00] VITALS: BP 116/58
--- NOTE | 2022-10-22 16:00 | NUR ---
NURSE NOTES VSS. AFEB. TELE WITH SR 73. NO SXS OF PAIN OR DISCOMFORT. O2 SAT 99% WITH HI DIOGENES O2 25 L/MIN. 40% FIO2.
--- NOTE | 2022-10-22 19:20 | NUR ---
NURSE REPORT REPORT GIVEN TO NIGHT NURSE JORGE TO ASSUME CARE OF PATIENT. ALL QUESTIONS ANSWERED. RAS GILLESPIE RN
--- NOTE | 2022-10-22 19:30 | NUR ---
HAND-OFF REPORT RECEIVED FROM CARLEY DAY SHIFT. RECEIVED PT A/O TO SELF. THIS NURSE NOTING A SIGNIFICANT CHANGE IN ORIENTATION SINCE TOOK CARE OF PT 1 WEEK AGO. DOES NOT CARRY ON MEANINGFUL CONVERSATION BEFORE. MOANS "JOHNATHONHawa JOHNATHON LET ME GO" "LORD PADRON" DENIES PAIN. NO GRIMMACING. SATTING 95% ON 1L/NC. RT AT BEDSIDE FOR BREATHING TREATMENT. DOES NOT APPEAR IN RESPIRATORY DISTRESS.
[2022-10-22 20:00] VITALS: BP 91/56
--- NOTE | 2022-10-22 20:00 | NUR ---
PM NARRATIVE (OPENING) 193 HAND-OFF REPORT RECEIVED FROM DEBORAH CLINTON RN FOLLOWING BEDSIDE ROUND. REPORTED: DX: SOB, HIGH-DIOGENES 25 L, A/O X1 TO SELF, REFUSED DIET, REPEATED MUMBLING, MASTERS TO GRAVITY FLOW. LOR PICC LINE INTACT/SL. RECEIVED PT REPORTED. NOTED OBSERVABLE DECLINE IN SOCIAL ENGAGEMENT SINCE CARED FOR PT 1.5 WEEKS AGO. DOES NOT EVEN PUSH THE CALL LIGHT FOR ASSISTANCE HE DID BEFORE WHICH WAS LITERALLY EVERY 15 MINUTES WITH REQUESTS. DOES NOT ATTEMPT TO REACH FOR CALL LIGHT AT ALL. PLAN: ATTEMPT TO ENGAGE PT IN [place] CONCERNING HIS DAYS A MEDIC IN [place] THIS IS WHAT PROMPTED HIS CONVERSATIONS AND ENJOYMENT THE LAST TIME I CARED FOR HIM.
--- NOTE | 2022-10-22 21:00 | NUR ---
RT VIERA PULLED ME ASIDE WITH SAME OBSERVATION CONCERNING THE SIGNIFICANT CHANGE IN THIS PT SOCIAL DECLINE.
--- NOTE | 2022-10-22 22:24 | NUR ---
NO RESTLESSNESS. DOZING OFF AND ON. WAKES UP SAYING "LET ME GO".
--- NOTE | 2022-10-22 23:00 | NUR ---
REMINDED PT OF WHO I WAS AND THE THINGS WE DISCUSSED WHEN I WAS HERE OVER A WEEK AGO. BEGAN TO TALK ABOUT HIS DAYS A MEDIC. INQUIRED ABOUT HIS OVERSEAS STATIONS OF DUTY. PT VERY SLOW TO RESPOND. LOOKED IF HE DID NOT REMEMBER ME. WITH EACH VISIT TO ROOM WILL CONTINUE TO ENGAGE PT IN [place] CONCERNING DAYS GONE BY.
[2022-10-23] VITALS: BP 101/56
--- NOTE | 2022-10-23 | NUR ---
TELEMETRY READING CORRECTION: SR 1ST DEGREE AV BLOCK WITH PAC'S RATE 78
--- NOTE | 2022-10-23 02:00 | NUR ---
PT BROKEN THRU NOW. HE IS SITTING UP IN BED. BRIGHT EYED. TALKING ABOUT THE GIRLFRIEND HE HAD IN [place]. HE IS A/OX4. BACK ON THE CALL LIGHT ASKING FOR PUDDING, ASKING FOR THE MONITOR TO BE PUT AT A SPECIFIC ANGLE TO HIS LIKING SO HE CAN OBSERVE HIS 02 SAT. MOMENT BY MOMENT. BREATH BY BREATH. NO HIGH-DIOGENES. CONT ON 1-2 L/NC AND SATTING 99-100%
[2022-10-23 04:00] VITALS: BP 106/57
--- NOTE | 2022-10-23 04:00 | NUR ---
PT HAS MADE STRIDES WITH INTER-PERSONAL COMMUNICATION SKILLS AND COGNITIVE RECALL. PRAISED PT FOR HIS RALLY IN THIS AREA. PT CONTINUES ON THE CALL LIGHT IN DAYS OF OLD. INFORMED RT AYLIN THAT "WE HAVE OUR FELA BACK!" NO RESPIRATORY DISTRESS.
[2022-10-23] MEDS: PIPERACILLIN/TAZOBACTAM 3.375 GM in DEXTROSE 5% 50 ML IV SCH ×3 (07:20→23:06)
--- NOTE | 2022-10-23 07:20 | NUR ---
RECEIVED REPORT FROM [employer]INEERING OFFICER NURSE JORGE FOR CONTINUITY OF CARE. PT IS STABLE AT THIS TIME.
--- NOTE | 2022-10-23 07:30 | NUR ---
PM NARRATIVE (CLOSING) HAND--OFF REPORT TO RUPA DAY SHIFT NURSE FOR CONTINUITY OF CARE. PT EVEN NOW ON THE CALL LIGHT COMPLAINING ABOUT BREAKFAST TRAY NOT BEING DELIVERED YET. WHEN IN ROOM FOR NURSING CARE ENGAGE PT IN CONVERSATION THAT DEMANDS HE TALK IN WHOLE SENTENCES TO KEEP HIM COGNITIVELY SHARP AND PRESENT POSSIBLE TO BREAK [place] CYCLE OF SITTING IN HOSPITAL BED MINUTE BY MINUTE MENTALLY AND SOCIALLY UNENGAGED. RELINQUISHED CARE OF PT AT THIS TIME.
[2022-10-23 08:00] VITALS: BP 97/58
[2022-10-23] MEDS: methylPREDNISolone SS 40 MG/ML VIAL IVP SCH ×2 (08:46→23:04)
[2022-10-23] MEDS: DOCUSATE SODIUM 100 MG GELCAP PO SCH ×2 (08:46→23:04)
[2022-10-23] MEDS: MAGNESIUM OXIDE 400 MG TAB PO SCH (08:46)
[2022-10-23] MEDS: PANTOPRAZOLE 40 MG INJ VIAL IVP SCH (08:48)
[2022-10-23] MEDS: ACETAZOLAMIDE SOD 250 MG TAB PO SCH ×2 (08:55→21:00)
[2022-10-23] MEDS: FUROSEMIDE 20 MG/2 ML VIAL IVP SCH (08:55)
[2022-10-23 08:56] LABS: BASOPHILS % (AUTO) 0.2 % (0.0-2.0); HEMATOCRIT 28.8 % (36-52); HEMOGLOBIN 9.4 g/dL (12.0-18.0); LYMPHOCYTES # (AUTO) 0.4 K/uL (2.0-11.5); LYMPHOCYTES % (AUTO) 4.2 % (20.5-51.1); MEAN CORPUSCULAR HEMOGLOBIN 27 pg (27-31); MEAN CORPUSCULAR HGB CONC 33 g/dL (33-37); MEAN CORPUSCULAR VOLUME 82.5 fL (80-94); MONOCYTES # (AUTO) 0.8 K/uL (0.8-1.0); MONOCYTES % (AUTO) 7.9 % (1.7-9.3); NEUTROPHILS # (AUTO) 8.6 K/uL (1.8-7.7); NEUTROPHILS % (AUTO) 87.7 % (42.2-75.2); PLATELET COUNT (AUTO) 196 K/uL (140-450); RED BLOOD CELL COUNT(AUTO) 3.49 MIL/uL (4.20-6.10); RED CELL DISTRIBUTION WIDTH 20.3 % (11.6-13.7); WHITE BLOOD COUNT (AUTO) 9.8 K/uL (4.8-10.8)
[2022-10-23 09:08] LABS: ANION GAP 10.7 (8-16); CREATININE 0.8 mg/dL (0.6-1.3)
[2022-10-23 09:10] LABS: POTASSIUM 2.7 mmol/L (3.5-5.1)
[2022-10-23 09:12] LABS: MAGNESIUM 1.8 mg/dL (1.8-2.4)
[2022-10-23] MEDS: POTASSIUM CHLORIDE 10 MEQ TABER PO PRN (09:18)
[2022-10-23 12:00] VITALS: BP 111/67
[2022-10-23] MEDS: Z-GUARD PASTE TP SCH (12:31)
[2022-10-23] MEDS: IPRATROPIUM 0.02% 0.5 MG/2.5 ML NEBU INH SCH ×3 (13:38→20:20)
[2022-10-23] MEDS: ALBUTEROL 0.083% 2.5 MG/3 ML NEBU INH SCH ×2 (13:39→20:20)
[2022-10-23 16:00] VITALS: BP 96/59
--- NOTE | 2022-10-23 19:00 | NUR ---
ENDORSED PT TO MARKETING EXECUTIVE NURSE FOR CONTINUITY OF CARE. PT STABLE AT THIS TIME.
[2022-10-23 20:00] VITALS: BP 96/71
--- NOTE | 2022-10-23 20:00 | NUR ---
PT RECEIVED A/OX3. SETTING LIMITS WITH [employer] SNACKS CRACKERS AND PRESSING CALL LIGHT EVERY 5 MINUTES. NEEDS AND SAFETY MATTER MET. OTHER NON ESSENTIALS NOT ADDRESSED.
--- NOTE | 2022-10-23 20:00 | NUR ---
PM NURSING NARRATIVE (OPENING) 193 HAND-OFF REPORT FROM RUPA RN FOR CONTINUITY OF CARE AFTER BEDSIDE ROUNDS. REPORTED UPDATE: K=2.7 REPLACED WITH KDUR. LIMITED PT INCESSANT REQUEST FOR SNACKS AND CALL LIGHT USE FOR NON ESSENTIALS. PT TEACHING FOR DIETARY PROTOCOLS FOR DIABETIC DIET.
[2022-10-23] MEDS: HYDROcodone/APAP 5/325 MG 1 TAB TAB PO PRN (23:49)
[2022-10-24] VITALS: BP 99/61
--- NOTE | 2022-10-24 | NUR ---
PT IN NO ACUTE DISTRESS. MEDICATED FOR STATED DISCOMFORT IN TAILBONE AND HERNIA. SEE EMAR. TONY
[2022-10-24 04:00] VITALS: BP 107/68
--- NOTE | 2022-10-24 04:00 | NUR ---
PT RESTING FOR SHORT PERIODS. POLYSILICON PREPARATION WORKER LIGHT. REQUESTING SNACKS AND WATER. PT TEACHING CONCERNING CHF AND WATER RESTRICTION. PT RECEIVED INFORMATION RATHER GRUDGINGLY.
[2022-10-24] MEDS: PIPERACILLIN/TAZOBACTAM 3.375 GM in DEXTROSE 5% 50 ML IV SCH ×3 (04:37→22:24)
[2022-10-24] MEDS: HYDROcodone/APAP 5/325 MG 1 TAB TAB PO PRN ×3 (05:06→22:16)
--- NOTE | 2022-10-24 06:00 | NUR ---
A.M CARE. PADDING TO TAILBONE. CATHETER TAPED TO THIGH. ANXIOUSLY WAITING FOR BREAKFAST.
--- NOTE | 2022-10-24 07:20 | NUR ---
RECEIVED REPORT FROM CYCLE DIRECTOR NURSE REBECA FOR CONTINUITY OF CARE. PT IS STABLE AT THIS TIME.
--- NOTE | 2022-10-24 07:30 | NUR ---
PM NURSING NARRATIVE (CLOSING) HAND-OFF REPORT TO RUPA RN FOR CONTINUITY OF CARE FOLLOWING BEDSIDE ROUNDS. PT SAME.A/OX3. CONTINUE WITH PT TEACHING CONCERNING DIET AND WATER LIMITS.. RELINQUISHED CARE OF PT AT THIS TIME.
[2022-10-24 08:00] VITALS: BP 106/61
[2022-10-24] MEDS: PANTOPRAZOLE 40 MG INJ VIAL IVP SCH (08:53)
[2022-10-24] MEDS: FUROSEMIDE 20 MG/2 ML VIAL IVP SCH (08:53)
[2022-10-24] MEDS: methylPREDNISolone SS 40 MG/ML VIAL IVP SCH ×2 (08:53→22:18)
[2022-10-24] MEDS: DOCUSATE SODIUM 100 MG GELCAP PO SCH ×2 (08:53→22:19)
[2022-10-24] MEDS: MAGNESIUM OXIDE 400 MG TAB PO SCH (08:54)
[2022-10-24] MEDS: ACETAZOLAMIDE SOD 250 MG TAB PO SCH ×2 (08:57→22:35)
[2022-10-24] MEDS: ACETAMINOPHEN 325 MG TAB PO PRN (10:43)
[2022-10-24 11:37] LABS: BASOPHILS % (AUTO) 0.2 % (0.0-2.0); EOSINOPHILS % (AUTO) 0.1 % (0.0-4.0); HEMATOCRIT 27.3 % (36-52); HEMOGLOBIN 9.1 g/dL (12.0-18.0); LYMPHOCYTES # (AUTO) 0.3 K/uL (2.0-11.5); LYMPHOCYTES % (AUTO) 3.2 % (20.5-51.1); MEAN CORPUSCULAR HEMOGLOBIN 27 pg (27-31); MEAN CORPUSCULAR HGB CONC 33 g/dL (33-37); MEAN CORPUSCULAR VOLUME 81.7 fL (80-94); MONOCYTES # (AUTO) 0.5 K/uL (0.8-1.0); MONOCYTES % (AUTO) 6.3 % (1.7-9.3); NEUTROPHILS # (AUTO) 7.2 K/uL (1.8-7.7); NEUTROPHILS % (AUTO) 90.2 % (42.2-75.2); PLATELET COUNT (AUTO) 165 K/uL (140-450); RED BLOOD CELL COUNT(AUTO) 3.34 MIL/uL (4.20-6.10); RED CELL DISTRIBUTION WIDTH 19.9 % (11.6-13.7); WHITE BLOOD COUNT (AUTO) 7.9 K/uL (4.8-10.8)
[2022-10-24 12:00] VITALS: BP 102/60
[2022-10-24 12:19] LABS: ALBUMIN 1.7 g/dL (3.4-5.0); ANION GAP 7.3 (8-16); CREATININE 0.7 mg/dL (0.6-1.3); POTASSIUM 3.3 mmol/L (3.5-5.1); TOTAL BILIRUBIN 3.3 mg/dL (0.0-1.0)
[2022-10-24] MEDS: POTASSIUM CHLORIDE 10 MEQ TABER PO PRN (13:19)
[2022-10-24] MEDS: Z-GUARD PASTE TP SCH (13:29)
[2022-10-24 16:00] VITALS: BP 98/58
[2022-10-24] MEDS: IPRATROPIUM 0.02% 0.5 MG/2.5 ML NEBU INH SCH ×3 (17:24→19:26)
[2022-10-24] MEDS: ALBUTEROL 0.083% 2.5 MG/3 ML NEBU INH SCH ×3 (17:24→19:26)
--- NOTE | 2022-10-24 19:05 | NUR ---
ENDORSED PT TO LIME MIXER TENDER NURSE FOR CONTINUITY OF CARE. PT STABLE AT THIS TIME.
--- NOTE | 2022-10-24 19:30 | NUR ---
HAND-OFF REPORT RECEIVED FROM DAY SHIFT RN FOR CONTINUITY OF CARE. REPORTED D/CD MONITOR, O2 AND TELE. ON ROOM AIR. K-3.3 K DUR GIVEN. POSSIBLE D/C TO FACILITY TOMORROW.
--- NOTE | 2022-10-24 22:16 | NUR ---
PAIN TAILBONE/HERNIA =04/26
[2022-10-24] MEDS: LACTULOSE 20 GM/30 ML UDC PO PRN (22:17)
--- NOTE | 2022-10-25 | NUR ---
PT COMPLIANT WITH DIET AND PARAMETERS CONCERNING FLUID RESTRICTION AND EXCESSIVE SNACKING.
[2022-10-25 04:00] VITALS: BP 99/60
[2022-10-25] MEDS: PIPERACILLIN/TAZOBACTAM 3.375 GM in DEXTROSE 5% 50 ML IV SCH ×3 (04:42→21:00)
[2022-10-25] MEDS: HYDROcodone/APAP 5/325 MG 1 TAB TAB PO PRN ×2 (04:43→08:42)
--- NOTE | 2022-10-25 07:30 | NUR ---
HAND-OFF REPORT TO ONCOMING RN FOR CONTINUITY OF CARE. PT A/OX3 DOZING IN BED. RELINQUISHED CARE OF PT AT THIS TIME.
[2022-10-25 08:00] VITALS: BP 102/63
[2022-10-25] MEDS: PANTOPRAZOLE 40 MG INJ VIAL IVP SCH (08:42)
[2022-10-25] MEDS: methylPREDNISolone SS 40 MG/ML VIAL IVP SCH (08:43)
[2022-10-25] MEDS: FUROSEMIDE 20 MG/2 ML VIAL IVP SCH (08:43)
[2022-10-25] MEDS: ACETAZOLAMIDE SOD 250 MG TAB PO SCH ×2 (08:44→21:00)
[2022-10-25] MEDS: DOCUSATE SODIUM 100 MG GELCAP PO SCH ×2 (08:44→21:00)
[2022-10-25] MEDS: IPRATROPIUM 0.02% 0.5 MG/2.5 ML NEBU INH SCH ×3 (10:57→19:00)
[2022-10-25] MEDS: ALBUTEROL 0.083% 2.5 MG/3 ML NEBU INH SCH ×3 (10:57→19:00)
[2022-10-25] MEDS ORDERED: DEXTROSE 50% 50 ML SYR IVP PRN (11:45)
[2022-10-25] MEDS: INSULIN LISPRO SLIDING SCALE 100 UNITS/ML VIAL SUBQ PRN (12:01)
[2022-10-25] MEDS: BLOOD GLUCOSE MONITORING 1 DEV DEV FS SCH ×2 (12:01→21:00)
[2022-10-25] MEDS: MAGNESIUM OXIDE 400 MG TAB PO SCH (12:07)
[2022-10-25] MEDS: Z-GUARD PASTE TP SCH (13:37)
[2022-10-25 16:00] VITALS: BP 105/57
--- NOTE | 2022-10-25 18:39 | NUR ---
OUTCOME SUMMARY VSS. AFEBRILE. NORCO X1 FOR TAILBONE PAIN. SATS 96% ON RA. TOLERATING DIET. FC DRAINING. OFFERED TO CLEAN AND REPOSITION MULTIPLE TIMES THROUGHOUT SHIFT, REFUSED ALL CARE. EDUCATED PT ON IMPORTANCE OF FREQUENT REPOSITIONING. ALL NEEDS MET, SAFETY AND COMFORT MEASURES MAINTAINED, CALL LIGHT WITHIN REACH.
[2022-10-25 20:00] VITALS: BP 95/49
--- NOTE | 2022-10-25 20:00 | NUR ---
PM NURSING NARRATIVE 1929 JASON RN A.M NURSE REPORTED REUSING ALL CARE TODAY. SLEEPING. RECEIVED PT, HOB UP 90 DEGREES WITH HEAD BENT TO KNEES. 02 ON. STUPOROUS. NO VERBAL EXCHANGE. VS 97.2-78-14-95/49 99% 2L/NC. PT HAS REVERTED BACK TO STATE THIS NURSE FOUND HIM IN FOUR DAYS PRIOR. NON ENGAGING BY OBVIOUS CHOICE. CONT TO MONITOR
--- NOTE | 2022-10-25 23:22 | NUR ---
1929 HHNTX NOT GIVEN. PATIENT ASLEEP. DID NOT DISTURB. NO SOB NOTED
--- NOTE | 2022-10-26 | NUR ---
BED CHANGE AND NEW PADDING TO BOTTOM INSPITE OF RESISTANCE. REMAINS WITHDRAWN. MASTERS TO GRAVITY FLOW. SCATCHING BELLY.
[2022-10-26] MEDS: PIPERACILLIN/TAZOBACTAM 3.375 GM in DEXTROSE 5% 50 ML IV SCH ×3 (06:00→21:15)
[2022-10-26 06:04] LABS: BASOPHILS % (AUTO) 0.1 % (0.0-2.0); EOSINOPHILS # (AUTO) 0.1 K/uL (0-0.4); EOSINOPHILS % (AUTO) 1.3 % (0.0-4.0); HEMATOCRIT 26.9 % (36-52); HEMOGLOBIN 8.9 g/dL (12.0-18.0); LYMPHOCYTES # (AUTO) 0.5 K/uL (2.0-11.5); LYMPHOCYTES % (AUTO) 4.9 % (20.5-51.1); MEAN CORPUSCULAR HEMOGLOBIN 27 pg (27-31); MEAN CORPUSCULAR HGB CONC 33 g/dL (33-37); MEAN CORPUSCULAR VOLUME 82.1 fL (80-94); MONOCYTES # (AUTO) 0.8 K/uL (0.8-1.0); MONOCYTES % (AUTO) 7.5 % (1.7-9.3); NEUTROPHILS # (AUTO) 9.4 K/uL (1.8-7.7); NEUTROPHILS % (AUTO) 86.2 % (42.2-75.2); PLATELET COUNT (AUTO) 131 K/uL (140-450); RED BLOOD CELL COUNT(AUTO) 3.28 MIL/uL (4.20-6.10); RED CELL DISTRIBUTION WIDTH 19.4 % (11.6-13.7); WHITE BLOOD COUNT (AUTO) 10.9 K/uL (4.8-10.8)
[2022-10-26 06:17] LABS: ANION GAP 3.3 (8-16); CARBON DIOXIDE 37.8 mmol/L (21-32); CREATININE 0.7 mg/dL (0.6-1.3); POTASSIUM 3.1 mmol/L (3.5-5.1)
--- NOTE | 2022-10-26 06:30 | NUR ---
PT HAS RE-ENTERED FAILURE TO THRIVE MINDSET AGAIN. NON COMMUNICATIVE BY CHOICE.
[2022-10-26 07:23] LABS: MAGNESIUM 1.5 mg/dL (1.8-2.4); PHOSPHORUS 2.2 mg/dL (2.5-4.9)
--- NOTE | 2022-10-26 07:30 | NUR ---
HAND-OFF REPORT TO NEHEMIAH RICHARD FOR CONTINUITY OF CARE. PT CONTINUES WITHDRAWN WITH FAILURE TO THRIVE AND PARTICIPATE IN ADL'S. STUPOROUS.
--- NOTE | 2022-10-26 07:31 | NUR ---
RECEIVED REPORT FROM HILARY GOMEZ FOR CONTINUITY OF CARE. PT SLEEPING. AROUSABLE BY NAME AND TOUCH. PT OPENED EYES AND REFUSED TO COMMUNICATE. PER HILARY GOMEZ, PT WAS SLEEPING AND HASN'T BEEN EATING ALL DAY. RESPIRATIONS EVEN AND UNLABORED ON 2L NC. MASTERS CATHETER DRAINING TO GRAVITY. WITH LOR PICC LINE DOUBLE LUMEN, INTACT AND PATENT. POC DISCUSSED. REPORT GIVEN TO HILARY CAPPS. CALL LIGHT WITHIN REACH. SAFETY PRECAUTIONS IN PLACE.
[2022-10-26] MEDS: BLOOD GLUCOSE MONITORING 1 DEV DEV FS SCH ×4 (07:52→21:22)
[2022-10-26 08:18] VITALS: BP 92/55
[2022-10-26] MEDS: ACETAZOLAMIDE SOD 250 MG TAB PO SCH ×2 (09:00→21:00)
[2022-10-26] MEDS: MAGNESIUM OXIDE 400 MG TAB PO SCH (09:00)
[2022-10-26] MEDS: DOCUSATE SODIUM 100 MG GELCAP PO SCH ×2 (09:00→21:00)
[2022-10-26] MEDS: IPRATROPIUM 0.02% 0.5 MG/2.5 ML NEBU INH SCH ×3 (09:36→20:20)
[2022-10-26] MEDS: ALBUTEROL 0.083% 2.5 MG/3 ML NEBU INH SCH ×3 (09:36→20:20)
[2022-10-26] MEDS: PANTOPRAZOLE 40 MG INJ VIAL IVP SCH (10:26)
[2022-10-26] MEDS: FUROSEMIDE 20 MG/2 ML VIAL IVP SCH (10:27)
[2022-10-26] MEDS: methylPREDNISolone SS 40 MG/ML VIAL IVP SCH (10:27)
[2022-10-26] MEDS: Z-GUARD PASTE TP SCH (13:00)
--- NOTE | 2022-10-26 14:15 | NUR ---
DR WILLOUGHBY AND DR VAUGHN WERE BOTH TEXTED ABG RESULTS FOR PT. ABG WAS DONE DUE TO PT LOC. PT HAS BEEN SLEEPING ALL DAY. RT SPOKE TO NURSE SHE STATED SHE HAS NOT GIVEN HIM ANYTHING FOR HIM TO BE SLEEPING ALL DAY. MENTIONED TO DR WILLOUGHBY PT IS NOT HIMSELF TODAY. HE IS NOT TALKING OR BEING ACTIVE AT ALL. PT DOES WAKE TO STERNAL RUB AND WHEN ABG WAS OBTAINED BUT WENT RIGHT BACK TO SLEEP. RN AWARE OF CHANGE OF CONDITION AND DR WILLOUGHBY IS UP TO DATE ON HUNTER. WILL CONTINUE TO MONITOR.
[2022-10-26 20:00] VITALS: BP 111/50
[2022-10-26] MEDS: POTASSIUM CHLORIDE 10 MEQ TABER PO PRN (21:21)
--- NOTE | 2022-10-26 21:52 | NUR ---
PT REFUSED ALL SCHEDULED PO MEDS. REFUSED SLIDING SCALE INSULIN FOR BS 179. REFUSED K-RIDER FOR POTASSIUM 3.1. PT HASN'T BEEN EATING AND DRINKING ALL DAY PER REPORT FROM DAY SHIFT. ATTEMPTED TO FEED PT BUT REFUSED. DR DEVRIES MADE AWARE. ORDERED K-RIDER AND PT TO MONITOR. HILARY CAPPS MADE AWARE.
[2022-10-26] MEDS ORDERED: KCL 20 MEQ IN 100 mL PREMIX 200 ML IV SCH (21:55)
[2022-10-26] MEDS: MAG SULF 2000 MG/WATER PREMIX 50 ML IV PRN (22:15)
[2022-10-27 04:00] VITALS: BP 115/41
--- NOTE | 2022-10-27 04:15 | NUR ---
PT AGREED TO BE CLEANED. DID MORNING CARE. NOTED OPEN WOUND ON SACRAL AREA AND REDNESS ON LEFT FOOT. DRESSING WAS CHANGED ON SACRAL AREA AND FOAM DRESSING PLACED ON LATERAL SIDE OF LEFT FOOT. PHOTOS TAKEN AND FILED IN PT'S CHART. OFFERED SNACKS. ASSISTED PT TO EAT APPLE SAUCE AND JUICE. PT QUIET, COMFORTABLY LAYING IN BED WITH NO DISTRESS NOTED.
[2022-10-27 05:48] LABS: EOSINOPHILS # (AUTO) 0.1 K/uL (0-0.4); EOSINOPHILS % (AUTO) 1.1 % (0.0-4.0); HEMATOCRIT 28.4 % (36-52); HEMOGLOBIN 9.2 g/dL (12.0-18.0); LYMPHOCYTES # (AUTO) 0.7 K/uL (2.0-11.5); LYMPHOCYTES % (AUTO) 7.4 % (20.5-51.1); MEAN CORPUSCULAR HEMOGLOBIN 27 pg (27-31); MEAN CORPUSCULAR HGB CONC 32 g/dL (33-37); MEAN CORPUSCULAR VOLUME 82.2 fL (80-94); MONOCYTES # (AUTO) 0.8 K/uL (0.8-1.0); MONOCYTES % (AUTO) 8.4 % (1.7-9.3); NEUTROPHILS # (AUTO) 7.5 K/uL (1.8-7.7); NEUTROPHILS % (AUTO) 83.1 % (42.2-75.2); PLATELET COUNT (AUTO) 136 K/uL (140-450); RED BLOOD CELL COUNT(AUTO) 3.46 MIL/uL (4.20-6.10); RED CELL DISTRIBUTION WIDTH 19.5 % (11.6-13.7)
[2022-10-27 06:19] LABS: CARBON DIOXIDE 34.2 mmol/L (21-32); CREATININE 0.7 mg/dL (0.6-1.3); POTASSIUM 3.2 mmol/L (3.5-5.1)
[2022-10-27 06:21] LABS: MAGNESIUM 1.9 mg/dL (1.8-2.4); PHOSPHORUS 2.6 mg/dL (2.5-4.9)
[2022-10-27] MEDS: BLOOD GLUCOSE MONITORING 1 DEV DEV FS SCH ×4 (06:33→20:54)
[2022-10-27] MEDS: INSULIN LISPRO SLIDING SCALE 100 UNITS/ML VIAL SUBQ PRN ×2 (06:34→20:55)
--- NOTE | 2022-10-27 07:27 | NUR ---
GAVE BEDSIDE REPORT TO KYE WATKINS. PT IS STABLE.
--- NOTE | 2022-10-27 07:29 | NUR ---
RECEIVED REPORT FROM DIABETES SPECIALIST NURSE, VALERIO, FOR CONTINUITY OF CARE. PT IN BED SLEEPING AT THIS TIME. RESPIRATION ARE EVEN AND UNLABORED, ON 2L NC. NO SIGNS OF DISTRESS NOTED. PT IS ALERT AND ORIENTED X3, ABLE TO VERBALIZE NEEDS. ABD IS NONTENDER, NONDISTENDED WITH BOWEL SOUNDS PRESENT. PT HAS MASTERS CATHETER IN PLACE, DRAINING YELLOW URINE. PT HAS LOR PICC LINE, DOUBLE LUMEN. CALL LIGHT WITHIN REACH. ALL SAFETY MEASURES IN PLACE.
[2022-10-27] MEDS: ALBUTEROL 0.083% 2.5 MG/3 ML NEBU INH SCH ×3 (07:45→20:12)
[2022-10-27] MEDS: IPRATROPIUM 0.02% 0.5 MG/2.5 ML NEBU INH SCH ×3 (07:45→20:12)
[2022-10-27] MEDS: methylPREDNISolone SS 40 MG/ML VIAL IVP SCH (09:00)
[2022-10-27] MEDS: PANTOPRAZOLE 40 MG INJ VIAL IVP SCH (09:00)
[2022-10-27] MEDS: FUROSEMIDE 20 MG/2 ML VIAL IVP SCH (09:00)
[2022-10-27] MEDS: LACTULOSE 20 GM/30 ML UDC PO PRN (09:42)
[2022-10-27] MEDS: DOCUSATE SODIUM 100 MG GELCAP PO SCH ×2 (09:43→22:28)
[2022-10-27] MEDS: MAGNESIUM OXIDE 400 MG TAB PO SCH (09:43)
[2022-10-27] MEDS: ACETAZOLAMIDE SOD 250 MG TAB PO SCH ×2 (09:47→22:28)
[2022-10-27] MEDS: Z-GUARD PASTE TP SCH (13:02)
--- NOTE | 2022-10-27 14:28 | NUR ---
RECEIVED ORDER FOR PATIENT TO GO TO SNF FOR PHYSICAL THERAPY. FA[facility]ED TO [facility], [facility] YUMIKO FROM [place] [facility] CALLED AND SAID SHE IS ABLE TO ACCEPT PATIENT IF WERE ABLE TO GET CONTRACT FROM [facility]. WILL FOLLOW UP WITH MORE INFORMATION. Addendum: 10/27/22 at 1620 by SIERRA LEW CM [facility] TO LET US KNOW PATIENT WILL BE GOING TO [facility] IF AUTH IS GIVEN BY [facility]. WILL FOLLOW UP TOMORROW [facility] MANAGER [employer]ODUCT NEVER CALLED. Addendum: 10/27/22 at 1628 by Karen Gallardo RN DC PLANNING: MARILEE SPO[place] A[place] AT [place] [phone] REGARDING THE AUTH FOR SNF. PER ANABELLE WILL CHECK THE BENEFIT AND CALL BACK CM TO FOLLOW Addendum: 10/27/22 at 1630 by Karen Gallardo RN DC PLANNING: CM CALLED ANABELLE Carter LEFT A MESSAGE. [facility] ACCEPTING PATIENT AWAITING AUTH NUMBER FROM [facility]. CM TO FOLLOW Addendum: 10/28/22 at 1656 by Karen Gallardo RN DC PLANNING: CM CALLED [facility] SPOKE WITH ISIAH STATED THEIR OPTICAL DISPENSER DIDN'T REVIEW IT AND AWAITING FOR THE FINAL DECISION. CM TO FOLLOW
--- NOTE | 2022-10-27 15:56 | NUR ---
WOUND CARE RE-EVALUATION NOTE: STAFF REPORT OF HUNTER TO SACRALCOCCYX WOUND. SKIN ASSESSMENT DONE WITH PRIMARY NURSE JUNE, UPON ARRIVAL AT BED SIDE, NOTICE PT. 'S LUNCH WAS UN-TOUCHED. .LEFT UPPER ARM SLIGHTLY WEEPING SKIN. SACRALCOCCYX PRESSURE INJURY STAGE 3 WITH 2 SITES.. SUPERIOR SITE: 1.5X1.5X 0.1 CM. WOUND BED PINK,MOIST, NO ODOR. NATALY-WOUND SKIN NON-BLANCHABLE REDNESS AND INFERIOR SITE 0.5X1X0.1CM WOUND BED PINK,MOIST, NO ODOR. NATALY-WOUND SKIN NON-BLANCHABLE REDNESS MERGED WITH OTHER SITE INDICATED FURTHER DAMAGE. LEFT LATERAL FOOT MULTIPLE NON-BLANCHABLE REDNESS WITH LARGEST 1.8X0.7CM. HEEL PROTECTORS IN PLACE ELEVATED WITH PILLOW OFFLOADING PT. ON NC, NO SOB. POSITION PT. TO LEFT SIDE LYING OFFLOAD WITH POSITIONER AND OFFLOAD SACRALCOCCYX. F/C PATENT MODERATE AMOUNT CLEAR YELLOW URINE OUTPUT OBSERVED. POC DISCUSSED WITH JUNE. COMORBIDITIES RELATED TO DELAY WOUND HEALING, FURTHER SKIN BREAKS AND UN-AVOIDABLE PRESSURE INJURY: BOWEL INCONTINENCE, NON-COMPLIANCE WITH PLAN OF CARE, HYPOXEMIC DECREASE TISSUE PERFUSION, DECREASE MOBILITY AND FUNCTIONAL ABILITIES, AND HOB ELEVATED THE MAJORITY OF TIMES DUE TO MEDICAL REASONS. RECOMMENDATION: -CLEANSE SACRALCOCCYX WITH NS, PAT DRY, APPLY THERAHONEY GEL AND COVER WITH FOAM DRESSING QD AND PRN IF SOILING
--- NOTE | 2022-10-27 16:00 | NUR ---
ATTEMPTED TO REPOSITION PT. PT YELLING AT STAFF AND REFUSING CARE. WILL ATTEMPT AT A LATER TIME.
--- NOTE | 2022-10-27 16:10 | NUR ---
PT REFUSING VS. PUSHING STAFF AWAY AND YELLING "STOP". EDUCATED PT ON NEED FOR VS MONITORING. PT CONTINUES TO PUSH STAFF AWAY AND YELL "STOP".
[2022-10-27] MEDS ORDERED: THERAHONEY GEL 42.5 GM TP PRN (16:15)
--- NOTE | 2022-10-27 16:57 | NUR ---
BLOOD GLUCOSE WAS 150. NO INSULIN COVERAGE NEEDED PER SLIDING SCALE.
--- NOTE | 2022-10-27 18:00 | NUR ---
WENT TO CHECK AND REPOSITION PT. PT PUSHING STAFF AWAY. REFUSING TO ALLOW STAFF TO CARE FOR PT.
--- NOTE | 2022-10-27 19:14 | NUR ---
ENDORSED PT TO HEATER OPERATOR NURSE, ANGIE, FOR CONTINUITY OF CARE. PT IS STABLE.
[2022-10-27 20:00] VITALS: BP 90/50
--- NOTE | 2022-10-27 20:00 | NUR ---
Patient's Plan of Care was discussed and reviewed with KYE ADAMS
--- NOTE | 2022-10-27 20:30 | NUR ---
ASSISTED TO EAT DINNER AT THE BEDSIDE TABLE. ABLE TO EAT 80% OF MEAL.
--- NOTE | 2022-10-27 22:00 | NUR ---
AWAKE IN BED, RESPIRATION EVEN AND UNLABORED. NO SOB NOTED.
[2022-10-28] MEDS: ACETAMINOPHEN 325 MG TAB PO PRN (00:24)
--- NOTE | 2022-10-28 00:24 | NUR ---
STILL AWAKE IN BED. VERBALIZED HE HAS GENERALIZED BODY PAINS. MEDICATED WITH TYLENOL PER MD ORDER. REPOSITIONED FOR COMFORT.
--- NOTE | 2022-10-28 01:30 | NUR ---
RESTING IN BED, QUIET. NO COMPLAINT OF PAIN 0/10.
--- NOTE | 2022-10-28 02:45 | NUR ---
RESTING IN BED AWAKE. COMPLAINING THAT HE FEELS BAD CHECKED 02 SAT - 100%. REPOSITIONED IN BED WITH PILLOWS. WHEN ASK TO VERBALIZE WHY HE IS FEELING BAD, GOT UPSET AND SHOUTED "STOP, STOP".
[2022-10-28 02:52] VITALS: BP 98/56
--- NOTE | 2022-10-28 05:45 | NUR ---
COMPLAINING AGAIN THAT HE FEELS BAD. PULLED UP IN BED, HEAD OF BED MADE HIGHER FOR EASY RESPIRATIONS. NOTED SOME WHEEZING AT THE LEFT SIDE OF CHEST. INFORMED RT AND CAME TO CHECKED PATIENT. ADVISED PATIENT TO SIT UP MORE UPRIGHT.
[2022-10-28 05:48] LABS: BASOPHILS % (AUTO) 0.1 % (0.0-2.0); EOSINOPHILS % (AUTO) 0.3 % (0.0-4.0); HEMATOCRIT 28.5 % (36-52); HEMOGLOBIN 9.5 g/dL (12.0-18.0); LYMPHOCYTES # (AUTO) 0.6 K/uL (2.0-11.5); LYMPHOCYTES % (AUTO) 7.4 % (20.5-51.1); MEAN CORPUSCULAR HEMOGLOBIN 27 pg (27-31); MEAN CORPUSCULAR HGB CONC 33 g/dL (33-37); MEAN CORPUSCULAR VOLUME 80.4 fL (80-94); MONOCYTES # (AUTO) 1.1 K/uL (0.8-1.0); MONOCYTES % (AUTO) 12.7 % (1.7-9.3); NEUTROPHILS # (AUTO) 6.6 K/uL (1.8-7.7); NEUTROPHILS % (AUTO) 79.5 % (42.2-75.2); PLATELET COUNT (AUTO) 173 K/uL (140-450); RED BLOOD CELL COUNT(AUTO) 3.54 MIL/uL (4.20-6.10); RED CELL DISTRIBUTION WIDTH 19.5 % (11.6-13.7); WHITE BLOOD COUNT (AUTO) 8.3 K/uL (4.8-10.8)
[2022-10-28 06:13] LABS: ANION GAP 10.3 (8-16); CARBON DIOXIDE 30.5 mmol/L (21-32); CREATININE 0.7 mg/dL (0.6-1.3)
[2022-10-28 06:14] LABS: MAGNESIUM 1.6 mg/dL (1.8-2.4); PHOSPHORUS 2.3 mg/dL (2.5-4.9)
[2022-10-28 06:42] LABS: POTASSIUM 2.8 mmol/L (3.5-5.1)
--- NOTE | 2022-10-28 06:50 | NUR ---
SENT MESSAGE TO DR. DEVRIES, PT K LEVEL TODAY IS 2.8. WILL FOLLOW UP WITH A NEW ORDER.
[2022-10-28] MEDS: ALBUTEROL 0.083% 2.5 MG/3 ML NEBU INH SCH ×3 (07:00→19:40)
[2022-10-28] MEDS: IPRATROPIUM 0.02% 0.5 MG/2.5 ML NEBU INH SCH ×3 (07:00→19:39)
[2022-10-28] MEDS: BLOOD GLUCOSE MONITORING 1 DEV DEV FS SCH ×4 (07:06→20:44)
--- NOTE | 2022-10-28 07:25 | NUR ---
CONDITION REMAIN STABLE. ENDORSED TO AM SHIFT NURSE FOR CONTINUITY OF CARE, FOLLOW UP K-RIDER ORDERED.
--- NOTE | 2022-10-28 07:26 | NUR ---
RECEIVED PT FROM FABRIC WORKER FOREMAN NURSE FOR CONTINUITY OF CARE. PT IS AWAKE, AOX2. RESPIRATIONS EVEN AND UNLABORED ON 1L O2 VIA NC. PIC LINE R UPPER ARM DOUBLE LUMEN. SKIN WARM AND DRY. CALL LIGHT WITHIN REACH. ALL SAFETY PRECAUTIONS IN PLACE.
[2022-10-28 08:00] VITALS: BP 115/61
[2022-10-28] MEDS ORDERED: KCL 20 MEQ IN 100 mL PREMIX 200 ML IV SCH (08:00)
--- NOTE | 2022-10-28 08:00 | NUR ---
Patient's Plan of Care was discussed and reviewed with BORDER POLICE:
[2022-10-28] MEDS: MAGNESIUM OXIDE 400 MG TAB PO SCH ×2 (09:00→09:08)
[2022-10-28] MEDS: ACETAZOLAMIDE SOD 250 MG TAB PO SCH ×2 (09:07→20:39)
[2022-10-28] MEDS: DOCUSATE SODIUM 100 MG GELCAP PO SCH ×2 (09:07→20:38)
[2022-10-28] MEDS: methylPREDNISolone SS 40 MG/ML VIAL IVP SCH (10:03)
[2022-10-28] MEDS: FUROSEMIDE 20 MG/2 ML VIAL IVP SCH (10:04)
[2022-10-28] MEDS: PANTOPRAZOLE 40 MG INJ VIAL IVP SCH (10:04)
--- NOTE | 2022-10-28 12:04 | NUR ---
NURSE INFORMED PATIENT IT WAS TIME FOR HIS BLOOD GLUCOSE CHECK. PATIENT STATED "OKAY", NURSE TOUCHED PATIENTS HAND. PATIENT BEGINS TO YELL "GET AWAY" PROVIDED PATIENT TEACHING REGARDING IMPORTANCE OF GLUCOSE CHECKS, RISKS AND BENEFITS. NURSE ATTEMPTS TO TAKE GLUCOSE CHECK AGAIN. PATIENT STARTS YELLING "NO, GET AWAY" PT MOVES HANDS TO OPPOSITE SIDE OF NURSE. PATIENT REFUSED.
[2022-10-28] MEDS: THERAHONEY GEL 42.5 GM TP SCH (13:00)
[2022-10-28 16:00] VITALS: BP 105/58
[2022-10-28] MEDS: INSULIN LISPRO SLIDING SCALE 100 UNITS/ML VIAL SUBQ PRN ×2 (16:35→20:47)
--- NOTE | 2022-10-28 19:23 | NUR ---
ENDORSED PT TO SUPERVISOR LIVESTOCK YARD NURSE FOR CONTINUITY OF CARE. PT IS STABLE.
--- NOTE | 2022-10-28 20:15 | NUR ---
PATIENT AWAKE WELL RESTED. NO SOB NOTED ON ROOM AIR. DENIES PAIN. MASTERS CATHETER DRAINING CLEAR YELLOW URINE. CALL LIGHT WITHIN REACH. ALL SAFETY PRECAUTIONS ARE IN PLACE.
--- NOTE | 2022-10-28 20:38 | NUR ---
ALL SCHEDULED DUE MEDICATIONS ADMINISTERED.
[2022-10-28] MEDS: LACTULOSE 20 GM/30 ML UDC PO PRN (20:39)
[2022-10-29] VITALS (8 sets, daily range): BP systolic 94–130; BP diastolic 52–95
[2022-10-29 05:54] LABS: BASOPHILS % (AUTO) 0.1 % (0.0-2.0); EOSINOPHILS # (AUTO) 0.1 K/uL (0-0.4); EOSINOPHILS % (AUTO) 0.9 % (0.0-4.0); HEMOGLOBIN 9.5 g/dL (12.0-18.0); LYMPHOCYTES # (AUTO) 0.8 K/uL (2.0-11.5); LYMPHOCYTES % (AUTO) 12.9 % (20.5-51.1); MEAN CORPUSCULAR HEMOGLOBIN 26 pg (27-31); MEAN CORPUSCULAR HGB CONC 33 g/dL (33-37); MEAN CORPUSCULAR VOLUME 80.7 fL (80-94); MONOCYTES # (AUTO) 0.9 K/uL (0.8-1.0); MONOCYTES % (AUTO) 13.6 % (1.7-9.3); NEUTROPHILS # (AUTO) 4.6 K/uL (1.8-7.7); NEUTROPHILS % (AUTO) 72.5 % (42.2-75.2); PLATELET COUNT (AUTO) 156 K/uL (140-450); RED BLOOD CELL COUNT(AUTO) 3.59 MIL/uL (4.20-6.10); RED CELL DISTRIBUTION WIDTH 19.1 % (11.6-13.7); WHITE BLOOD COUNT (AUTO) 6.4 K/uL (4.8-10.8)
[2022-10-29 06:17] LABS: CARBON DIOXIDE 30.6 mmol/L (21-32); CREATININE 0.6 mg/dL (0.6-1.3)
--- NOTE | 2022-10-29 06:21 | NUR ---
RECEIVED A CALL FROM [facility] REPORTING CRITICAL LAB VALUE OF POTASSIUM 2.6. NOTIFIED DR. DEVRIES WITH ORDERS NOTED CARRIED OUT.
[2022-10-29 06:22] LABS: POTASSIUM 2.6 mmol/L (3.5-5.1)
[2022-10-29 06:24] LABS: MAGNESIUM 1.5 mg/dL (1.8-2.4); PHOSPHORUS 2.3 mg/dL (2.5-4.9)
[2022-10-29] MEDS ORDERED: KCL 20 MEQ IN 100 mL PREMIX 200 ML IV SCH ×2 (06:40→21:50)
[2022-10-29] MEDS: IPRATROPIUM 0.02% 0.5 MG/2.5 ML NEBU INH SCH ×3 (07:00→19:00)
[2022-10-29] MEDS: ALBUTEROL 0.083% 2.5 MG/3 ML NEBU INH SCH ×3 (07:00→19:00)
--- NOTE | 2022-10-29 07:21 | NUR ---
GAVE REPORT TO MORNING SHIFT NURSE FOR CONTINUITY OF CARE.
--- NOTE | 2022-10-29 07:22 | NUR ---
RECEIVED PT FROM MUNITIONS HANDLER SUPERVISOR NURSE FOR CONTINUITY OF CARE. PT IN BED SLEEPING. VISIBLE CHEST RISE AND FALL. RESPIRATIONS EVEN AND UNLABORED ON RA. SKIN WARM AND DRY. PIC LINE ON LOR. MASTERS DRAINING TO GRAVITY. ALL SAFETY PRECAUTIONS IN PLACE.
[2022-10-29] MEDS: BLOOD GLUCOSE MONITORING 1 DEV DEV FS SCH ×4 (07:30→21:31)
[2022-10-29] MEDS: SPIRONOLACTONE 25 MG TAB PO SCH (09:00)
[2022-10-29] MEDS ORDERED: FUROSEMIDE 20 MG TAB PO SCH (09:00)
[2022-10-29] MEDS: ACETAZOLAMIDE SOD 250 MG TAB PO SCH (09:00)
[2022-10-29] MEDS: PANTOPRAZOLE 40 MG INJ VIAL IVP SCH (09:00)
[2022-10-29] MEDS: DOCUSATE SODIUM 100 MG GELCAP PO SCH ×2 (09:00→21:31)
[2022-10-29] MEDS: methylPREDNISolone SS 40 MG/ML VIAL IVP SCH (09:00)
[2022-10-29] MEDS: MAGNESIUM OXIDE 400 MG TAB PO SCH (09:00)
--- NOTE | 2022-10-29 09:54 | NUR ---
WOUND CARE NOTE: NO NEW SKIN BREAKS, SACRALCOCCYX PI REMAIN STAGE 3. POC DISCUSSED WITH PRIMARY NURSE,WILL CONTINUE TX ORDERED. SACRAL COCCYX OFFLOAD. -BILATERAL UPPER EXTREMITIES, MOIST, SKIN INTACT. -SACRALCOCCYX PRESSURE INJURY STAGE 3 WITH 2 SITES. SUPERIOR SITE: 1.5X1.5X 0.1 CM. WOUND BED PINK,MOIST, NO ODOR. NATALY-WOUND SKIN NON-BLANCHABLE REDNESS AND INFERIOR SITE 0.5X1X0.1CM WOUND BED PINK,MOIST, NO ODOR. NATALY-WOUND SKIN NON-BLANCHABLE REDNESS MERGED WITH OTHER SITE INDICATED FURTHER DAMAGE. -LEFT LATERAL FOOT MULTIPLE NON-BLANCHABLE REDNESS WITH LARGEST 1.8X0.7CM.
[2022-10-29] MEDS ORDERED: POTASSIUM CHLORIDE 10 MEQ TABER PO SCH (10:00)
--- NOTE | 2022-10-29 10:05 | NUR ---
NURSE WENT IN ROOM ATTEMPT TO GIVE MORNING MEDS. PT SLEEPING, DID STERNAL RUB. PATIENT OPENED EYES AND BEGAN COUGHING. VITAL SIGNS TAKEN: BP 115/88, HR 99, O2 100%. TOLD PT IT WAS TIME FOR MORNING MEDS. PATIENT CLOSED EYES AGAIN. OPENED PT PUPILS EQUAL AND REACTIVE TO LIGHT.
--- NOTE | 2022-10-29 10:13 | NUR ---
K RIDER GIVEN BY RN LORNA
[2022-10-29] MEDS: THERAHONEY GEL 42.5 GM TP SCH (13:00)
[2022-10-29] MEDS: MAG SULF 2000 MG/WATER PREMIX 50 ML IV PRN (13:42)
--- NOTE | 2022-10-29 13:42 | NUR ---
MAG RIDER GIVEN BY LORNA.
--- NOTE | 2022-10-29 13:46 | NUR ---
INFORMED DR DEVRIES. PT NOTED WITH LETHARGY. AWAITING RESPONSE.
--- NOTE | 2022-10-29 14:26 | NUR ---
PT O2 SATURATION AT 77%. INCREASED O2 VIA NC ON PATIENT. CALLED RT.
--- NOTE | 2022-10-29 14:40 | NUR ---
CALLED RT DUE TO LOW OXYGEN SATURATION. PT DIFFICULT TO AROUSE. STERNAL RUB PATIENT NOT RESPONDING. CALLED RAPID RESPONSE.
--- NOTE | 2022-10-29 14:43 | NUR ---
RAPID RESPONSE CALLED TO PT DUE TO DROPPING SATURATION AND UNRESPONSIVE PT. PT WAITING TRANSPORT TO CT. CURRENTLY ON LOW FLOW BUBBLER, SATURATION 100%. WILL CONTINUE TO MONITOR.
--- NOTE | 2022-10-29 15:15 | NUR ---
PT TAKEN OFF UNIT TO RADIOLOGY.
[2022-10-29 17:20] LABS: BASOPHILS % (AUTO) 0.1 % (0.0-2.0); EOSINOPHILS # (AUTO) 0.1 K/uL (0-0.4); EOSINOPHILS % (AUTO) 1.4 % (0.0-4.0); HEMATOCRIT 31.1 % (36-52); HEMOGLOBIN 10.2 g/dL (12.0-18.0); LYMPHOCYTES # (AUTO) 0.6 K/uL (2.0-11.5); LYMPHOCYTES % (AUTO) 8.7 % (20.5-51.1); MEAN CORPUSCULAR HEMOGLOBIN 27 pg (27-31); MEAN CORPUSCULAR HGB CONC 33 g/dL (33-37); MEAN CORPUSCULAR VOLUME 81.3 fL (80-94); MONOCYTES # (AUTO) 0.9 K/uL (0.8-1.0); NEUTROPHILS # (AUTO) 5.6 K/uL (1.8-7.7); NEUTROPHILS % (AUTO) 77.8 % (42.2-75.2); PLATELET COUNT (AUTO) 140 K/uL (140-450); RED BLOOD CELL COUNT(AUTO) 3.83 MIL/uL (4.20-6.10); RED CELL DISTRIBUTION WIDTH 19.1 % (11.6-13.7); WHITE BLOOD COUNT (AUTO) 7.2 K/uL (4.8-10.8)
[2022-10-29 17:59] LABS: CREATININE 0.7 mg/dL (0.6-1.3)
[2022-10-29 18:03] LABS: POTASSIUM 2.9 mmol/L (3.5-5.1)
--- NOTE | 2022-10-29 18:03 | NUR ---
RECEIVED CALL FROM LAB WITH CRITICAL POTASSIUM 2.9, INFORMED DR DEVRIES. AWAITING RESPONSE.
[2022-10-29 18:10] LABS: ANION GAP 9.5 (8-16); CARBON DIOXIDE 27.4 mmol/L (21-32)
--- NOTE | 2022-10-29 18:53 | NUR ---
PATIENT OXYGEN SATURATION DROPPING. INCREASED O2 VIA NC. CALLED RT. RT TO COME SEE PT.
[2022-10-29] MEDS ORDERED: LACTULOSE 20 GM/30 ML UDC NG ONE (19:05)
--- NOTE | 2022-10-29 19:10 | NUR ---
ENDORSED PT TO HIGH CLIMBER NURSE FOR CONTINUITY OF CARE.
--- NOTE | 2022-10-29 19:43 | NUR ---
CALLED RAPID RESPONSE DUE TO PATIENT IS DESATING 87% ON 2L NC AND UNRESPONSIVE.
--- NOTE | 2022-10-29 19:51 | NUR ---
PLACED A CALL TO DR WILLOUGHBY D/T PATIENT UNRESPONSIVE. LEFT A LIONEL.
--- NOTE | 2022-10-29 19:56 | NUR ---
CALLED DR VINCENT PATTERN DRUM MAKER REGARDING PATIENT UNRESPONSIVE. DR. VINCENT SAID CALL DR DEVRIES I GOT NO REPORT YET. I CALLED DR DEVRIES AT 1956 ASKING RN WHAT HAPPENED AND WILL CALL BACK. DR. DEVRIES CALLED BACK AT 2001, RN TOLD DR. DEVRIES THAT DR PORTER IS TAKING CARE OF THE PATIENT PREPARING TO INTUBATE THE PATIENT. SAID OK.
--- NOTE | 2022-10-29 20:08 | NUR ---
PATIENT WAS INTUBATED BY DR PORTER.
--- NOTE | 2022-10-29 20:20 | NUR ---
RESPONSIBLE GREEN PARTY CHRISTOPHER BAUMANN WAS NOTIFIED REGARDING PATIENT CONDITION , STATED " I'LL BE THERE NEXT WEEK TO VISIT HIM".
--- NOTE | 2022-10-29 20:25 | NUR ---
PATIENT WAS TRANSFERRED TO ICU.
--- NOTE | 2022-10-29 20:30 | NUR ---
PT WAS UPGRADED TO ICU FOR INTUBATION FOR AIRWAY PROTECTION DUE TO ALOC. PT WAS TRNSPORTED TO ICU ALREADY INTUBATED WITH OGT PLACED. NO INJURIES SUSTAINED DURING TRANSFER. LACTULOSE GIVEN, RESTRAINTS APPLIED AND CHEST XRAY CHECKED FOR PROPER PLACEMENT OF ET AND OG TUBES. RIGHT UPPER ARM PICC IN PLACE. TKO FLUID STARTED AND PROPOFOL ORDERS AND POTASSIUM REPLACEMENT OBTAINED FROM [facility].
[2022-10-29] MEDS ORDERED: PROPOFOL 1000 MG/100 ML PREMIX 100 ML IV PRN (20:35)
--- NOTE | 2022-10-29 20:36 | NUR ---
1944 RAPID RESPONSE CALLED. PATIENT WAS IN RESPIRATORY DISTRESS. STARTED TO BAG PT WITH 100% FIO2 AND CALLED ER DR TO COME INTUBATE.PT WAS INTUBATED WITH 7.5 TUBE AT 23 LIP LINE. CHEST XRAY TAKEN AND TUBE IS 3.3 CM ABOVE THE SHANE.PT TRANSFERRED TO ICU BED 3 AND PLACED ON VENT . SETTINGS AC 18 VT 500 PEEP 5 FIO2 100%. ABG PENDING
--- NOTE | 2022-10-29 21:20 | NUR ---
2104 POST ABG RESULTS LOWERED RR TO 16. SEE ABG RESULTS
--- NOTE | 2022-10-29 22:03 | NUR ---
2149 ATTEMPTED TO GET SPUTUM SAMPLE BY SXNING ETUBE. NO SECRETIONS AT THIS TIME
[2022-10-29] MEDS ORDERED: KCL 20 MEQ IN 100 mL PREMIX 200 ML IV ONE (22:15)
[2022-10-30] VITALS (33 sets, daily range): BP systolic 80–116; BP diastolic 48–71
[2022-10-30] MEDS: PROPOFOL 1000 MG/100 ML PREMIX 100 ML IV PRN ×2 (00:50→15:04)
--- NOTE | 2022-10-30 01:12 | NUR ---
0108 sputum was uptained and sent to lab. also lowered fio2 to 80%. sats 100%
[2022-10-30 04:31] LABS: BASOPHILS % (AUTO) 0.3 % (0.0-2.0); EOSINOPHILS # (AUTO) 0.1 K/uL (0-0.4); HEMATOCRIT 32.8 % (36-52); HEMOGLOBIN 10.6 g/dL (12.0-18.0); LYMPHOCYTES # (AUTO) 0.9 K/uL (2.0-11.5); LYMPHOCYTES % (AUTO) 8.5 % (20.5-51.1); MEAN CORPUSCULAR HEMOGLOBIN 26 pg (27-31); MEAN CORPUSCULAR HGB CONC 32 g/dL (33-37); MEAN CORPUSCULAR VOLUME 81.5 fL (80-94); MONOCYTES % (AUTO) 9.7 % (1.7-9.3); NEUTROPHILS # (AUTO) 8.4 K/uL (1.8-7.7); NEUTROPHILS % (AUTO) 80.5 % (42.2-75.2); PLATELET COUNT (AUTO) 140 K/uL (140-450); RED BLOOD CELL COUNT(AUTO) 4.02 MIL/uL (4.20-6.10); RED CELL DISTRIBUTION WIDTH 19.2 % (11.6-13.7); WHITE BLOOD COUNT (AUTO) 10.5 K/uL (4.8-10.8)
[2022-10-30 06:26] LABS: MAGNESIUM 1.5 mg/dL (1.8-2.4); PHOSPHORUS 2.5 mg/dL (2.5-4.9)
[2022-10-30 06:33] LABS: ANION GAP 10.7 (8-16); CARBON DIOXIDE 26.4 mmol/L (21-32); CREATININE 0.6 mg/dL (0.6-1.3); POTASSIUM 3.1 mmol/L (3.5-5.1)
[2022-10-30] MEDS ORDERED: KCL 20 MEQ IN 100 mL PREMIX 200 ML IV ONE (06:55)
--- NOTE | 2022-10-30 07:15 | NUR ---
Opening Received report on pt. Pt intubated and sedated with diprivan drip, in no signs of pain or distress, able to follow simple commands. Pt with OGT clamped, auscultated for placement. Skin noted with ecchymosis, weeping, and pitting edema on BUE, BLE with pitting edema, jaundiced sclera. Hernandez in place draining urine to gravity. Bilateral soft wrist restraints in place for safety, skin intact.
[2022-10-30] MEDS ORDERED: COMMUNICATION ORDER MC PRN (07:25)
[2022-10-30] MEDS ORDERED: POTASSIUM CHLORIDE 20% 40 MEQ/15 ML UDC GT PRN (07:25)
--- NOTE | 2022-10-30 07:25 | NUR ---
Dr. Garrido informed regarding potassium level from previous shift RN and made orders for K Bakari. Dr. Garrido also aware of pt's routine potassium order.
[2022-10-30] MEDS: IPRATROPIUM 0.02% 0.5 MG/2.5 ML NEBU INH SCH ×3 (07:30→19:50)
[2022-10-30] MEDS: ALBUTEROL 0.083% 2.5 MG/3 ML NEBU INH SCH ×3 (07:30→19:50)
[2022-10-30] MEDS: BLOOD GLUCOSE MONITORING 1 DEV DEV FS SCH ×3 (08:01→17:55)
[2022-10-30] MEDS: POTASSIUM CHLORIDE 20% 40 MEQ/15 ML UDC GT SCH (08:08)
[2022-10-30] MEDS: DOCUSATE 100 MG/10 ML UDC GT SCH ×2 (08:09→20:41)
[2022-10-30] MEDS: FUROSEMIDE 40 MG/5 ML ORAL SOL UDC GT SCH (08:11)
[2022-10-30] MEDS: MAGNESIUM OXIDE 400 MG TAB PO SCH (08:12)
[2022-10-30] MEDS: PANTOPRAZOLE 40 MG INJ VIAL IVP SCH (08:13)
[2022-10-30] MEDS: methylPREDNISolone SS 40 MG/ML VIAL IVP SCH (08:13)
[2022-10-30] MEDS: SPIRONOLACTONE 25 MG TAB PO SCH (08:14)
[2022-10-30] MEDS ORDERED: KCL 20 MEQ IN 100 mL PREMIX 200 ML IV SCH (08:15)
--- NOTE | 2022-10-30 10:00 | NUR ---
Repositioned pt, noted smear of soft brown BM. Vy care done. Sacral wound dressing changed.
--- NOTE | 2022-10-30 10:49 | NUR ---
Dr. Almanzar and Dr. Garrido informed regarding pt's fluctuating blood pressure, new orders made. Also informed regarding magnesium level, PRN magnesium will be given per MD order.
[2022-10-30] MEDS: NOREPINEPHRINE 4 MG in DEXTROSE 5% 250 ML IV PRN ×2 (10:57→19:32)
[2022-10-30] MEDS ORDERED: ROCURONIUM 50 MG/5 ML VIAL IV ONE (11:30)
[2022-10-30] MEDS ORDERED: ETOMIDATE 20 MG/10 ML VIAL IVP ONE (11:30)
--- NOTE | 2022-10-30 12:00 | NUR ---
Pt noted with small smear of soft brown BM, veronika care done and repositioned pt.
[2022-10-30] MEDS: THERAHONEY GEL 42.5 GM TP SCH (13:00)
--- NOTE | 2022-10-30 13:25 | NUR ---
Dr. Almanzar informed regarding aldactone dose held this morning, new orders made.
[2022-10-30 14:24] LABS: APPEARANCE,URINE CLEAR (CLEAR); BILIRUBIN,URINE NEGATIVE (NEGATIVE); BLOOD, URINE 3+ (NEGATIVE); COLOR,URINE YELLOW (YELLOW); LEUKOCYTE ESTERASE ,URINE TRACE (NEGATIVE); NITRITE, URINE NEGATIVE (NEGATIVE); PH,URINE >=9.0 (5.0-9.0); UGLUCOSE NEGATIVE (NEGATIVE)
[2022-10-30] MEDS: MAG SULF 2000 MG/WATER PREMIX 50 ML IV PRN (14:29)
--- NOTE | 2022-10-30 15:23 | NUR ---
Dr. Florentino rounding on pt. New orders made
[2022-10-30 17:33] LABS: RBC,URINE 80-100 /HPF (0-5); WBC,URINE 0-5 /HPF (0-5)
[2022-10-30] MEDS: INSULIN LISPRO SLIDING SCALE 100 UNITS/ML VIAL SUBQ PRN (17:59)
--- NOTE | 2022-10-30 18:00 | NUR ---
Started pt on tube feeding per MD order.
[2022-10-30] MEDS: PIPERACILLIN/TAZOBACTAM 3.375 GM in DEXTROSE 5% 50 ML IV SCH (19:32)
--- NOTE | 2022-10-30 19:40 | NUR ---
RECEIVED PT. FROM DAY SHIFT HILARY AMOR. PT. ON ETT A/C VC RATE 16, TV 500, FIO2 25%, PEEP 5 AND FIO2 98%. BILATERAL LUNG SOUNDS RONCHI. BOTH EYES NON REACTIVE TO LIGHT. SINUS RHYTHM ON THE MONITOR. IV TO RIGHT UPPER ARM PICC LINE, PATENT AND INTACT. INFUSING PROPOFOL DRIP 10 MCG/KG/MIN, LEVOPHED 8MCG/MIN. PT. WITH OGT RUNNING VITAL AT 20 ML/HR. SKIN NOT INTACT, PLS. SEE WOUND DOCUMENTATION. MASTERS CATHETER TO GRAVITY AND PATENT. URINE COLOR DARK KAI. ON BILATERAL SOFT WRIST RESTRAINT. SITE NO S/S OF INJURY. NO S/S OF POOR CIRCULATION. PLACED IN COMFORTABLE POSITION. PROVIDED VAP ORAL CARE. NO S/S OF RESPIRATORY DISTRESS AND NO S/S OF PAIN. WILL CONT. TO MONITOR.
--- NOTE | 2022-10-30 19:50 | NUR ---
RECEIVED REPORT FROM AM SHIFT. PATIENT WAS SEEN AND ASSESSED. PATIENT IS INTUBATED AND SEDATED WITH ETT SIZE 7.5 AND SECURED WITH A BITING BLOCK ANCHOR-FAST 23cm @ TEETH. PATIENT IS ON VENTILATOR SUPPORT. VENT SETTINGS: AC/VC RR 16, VT 500, PEEP 5, FiO2 30% WITH SPO2 OF 98%. VENTILATOR PLUGGED IN RED OUTLET. VENTILATOR ALARMS SET APPROPRIATELY AND AUDIBLE TO ENVIRONMENT. AMBU BAG AT BEDSIDE. HEAD OF BED GREATER THAN 30 DEGREES. NOTICED ADEQUATE BILATERAL CHEST RISE AND FALL. PATIENT IS IN NO RESPIRATORY DISTRESS AT THIS TIME. SUCTIONED SMALL CLEAR/WHITE THIN SECRETIONS FROM ETT AND SMALL WHITE THIN ORALLY. BILATERAL BREATH SOUNDS ON AUSCULTATION; UPPER LOBES: CLEAR LOWER LOBES: CRACKLES WILL CONTINUE TO MONITOR PATIENT. SCHEDULE TX GIVEN ORDERED AND PT TOLERATED WELL WITH NO ADVERSE REACTION WILL CONTINUE TO MONITOR PATIENT.
[2022-10-30] MEDS ORDERED: PIPERACILLIN/TAZOBACTAM 3.375 GM VIAL IV ONE (20:36)
[2022-10-31] VITALS (32 sets, daily range): BP systolic 84–132; BP diastolic 58–80
[2022-10-31] MEDS: INSULIN LISPRO SLIDING SCALE 100 UNITS/ML VIAL SUBQ PRN ×4 (00:44→18:11)
[2022-10-31] MEDS: BLOOD GLUCOSE MONITORING 1 DEV DEV FS SCH ×4 (00:44→18:10)
[2022-10-31] MEDS ORDERED: NOREPINEPHRINE 4 MG/4 ML VIAL IV ONE (03:29)
[2022-10-31] MEDS: NOREPINEPHRINE 4 MG in DEXTROSE 5% 250 ML IV PRN (03:31)
[2022-10-31] MEDS ORDERED: PIPERACILLIN/TAZOBACTAM 3.375 GM VIAL IV ONE (05:32)
[2022-10-31] MEDS: PIPERACILLIN/TAZOBACTAM 3.375 GM in DEXTROSE 5% 50 ML IV SCH ×3 (05:35→20:48)
--- NOTE | 2022-10-31 07:00 | NUR ---
ENDORSED PT. TO HILARY AMOR FOR CONTINUITY OF CARE.
--- NOTE | 2022-10-31 07:30 | NUR ---
Opening Received report on pt. Pt intubated and sedated, in no signs of pain or distress, able to follow simple commands. OGT with feeding, 40 ml residual noted, auscultated for placement. Hernandez in place draining urine to gravity. BUE with weeping edema, BLE with pitting edema. Bilateral soft wrist restraints in place for safety, no skin breakdown noted. Offloaded heels with pillow and heel protector boots.
--- NOTE | 2022-10-31 07:47 | NUR ---
RECEIVED ON A PB 840 VENTILATOR PLUGGED INTO RED OUTLET TOLERATING WELL WITHOUT ADVERSE REACTIONS NOTED TO AN ENDOTRACHEAL TUBE #7.5 SECURED AT 23cm TEETH/GUM LINE WITH AN ANCHOR FAST CUFF PRESSURE CHECKED NOTED AMBU BAG AT BEDSIDE SEDATED EQUAL CHEST RISE ENDOTRACHEAL SUCTION FOR LARGE SEMI THICK YELLOW SECRETIONS AIRWAY PATENT
[2022-10-31] MEDS: ALBUTEROL 0.083% 2.5 MG/3 ML NEBU INH SCH ×3 (07:56→20:30)
[2022-10-31] MEDS: IPRATROPIUM 0.02% 0.5 MG/2.5 ML NEBU INH SCH ×3 (07:56→20:30)
[2022-10-31] MEDS: PANTOPRAZOLE 40 MG INJ VIAL IVP SCH (08:27)
[2022-10-31] MEDS: methylPREDNISolone SS 40 MG/ML VIAL IVP SCH (08:28)
[2022-10-31] MEDS: MAGNESIUM OXIDE 400 MG TAB PO SCH (08:29)
[2022-10-31] MEDS: FUROSEMIDE 40 MG/5 ML ORAL SOL UDC GT SCH (08:29)
[2022-10-31] MEDS: DOCUSATE 100 MG/10 ML UDC GT SCH ×2 (08:29→20:48)
[2022-10-31] MEDS: POTASSIUM CHLORIDE 20% 40 MEQ/15 ML UDC GT SCH (08:30)
[2022-10-31 08:52] LABS: EOSINOPHILS # (AUTO) 0.1 K/uL (0-0.4); EOSINOPHILS % (AUTO) 0.7 % (0.0-4.0); HEMATOCRIT 33.6 % (36-52); HEMOGLOBIN 10.8 g/dL (12.0-18.0); LYMPHOCYTES % (AUTO) 6.8 % (20.5-51.1); MEAN CORPUSCULAR HEMOGLOBIN 26 pg (27-31); MEAN CORPUSCULAR HGB CONC 32 g/dL (33-37); MEAN CORPUSCULAR VOLUME 81.8 fL (80-94); MONOCYTES # (AUTO) 1.8 K/uL (0.8-1.0); MONOCYTES % (AUTO) 12.2 % (1.7-9.3); NEUTROPHILS # (AUTO) 11.6 K/uL (1.8-7.7); NEUTROPHILS % (AUTO) 80.3 % (42.2-75.2); PLATELET COUNT (AUTO) 164 K/uL (140-450); RED BLOOD CELL COUNT(AUTO) 4.11 MIL/uL (4.20-6.10); WHITE BLOOD COUNT (AUTO) 14.5 K/uL (4.8-10.8)
[2022-10-31 09:05] LABS: ANION GAP 9.2 (8-16); CARBON DIOXIDE 27.9 mmol/L (21-32); CREATININE 0.8 mg/dL (0.6-1.3); POTASSIUM 4.1 mmol/L (3.5-5.1)
[2022-10-31] MEDS: PROPOFOL 1000 MG/100 ML PREMIX 100 ML IV PRN (10:00)
--- NOTE | 2022-10-31 10:09 | NUR ---
SEDATED RESTING COMFORTABLY GOOD CHEST RISE ENDOTRACHEAL TUBE SUCTION FOR MODERATE SEMI THICK YELLOW SECRETIONS AIRWAY PATENT
--- NOTE | 2022-10-31 11:09 | NUR ---
DR. PHOENIX VAUGHN ROUNDMICAH; DAILY CPAP TRIAL TOLERATED X 2 HOURS CK; BUILD UP PULMONARY RESERVES
--- NOTE | 2022-10-31 11:22 | NUR ---
PLACED ON CPAP TRIAL NOTED; TOLERATING WITHOUT COMPLICATIONS NOTED; GOOD CHEST RISE AND AERATION THROUGHOUT BILATERAL LUNG BARRAGAN AIRWAY PATENT; MT/BOX ATTACHER NOTIFIED
[2022-10-31] MEDS: NOREPINEPHRINE 8 MG in DEXTROSE 5% 250 ML IV PRN (12:20)
--- NOTE | 2022-10-31 13:22 | NUR ---
TOLERATING CPAP TRIAL WITHOUT EVIDENCE OF PULMONARY DISTRESS NOTED GOOD CHEST RISE ENDOTRACHEAL TUBE SUCTION FOR MODERATE SEMI THICK MARTEL SECRETIONS AIRWAY PATENT
--- NOTE | 2022-10-31 13:24 | NUR ---
TOLERATED CPAP TRIAL X 2 HOURS NOTED NO DISTRESS NOTED EQUAL CHEST RISE GOOD AERATION THROUGHOUT BILATERAL LUNG B[place]AGAN AIRWAY PATENT CHANGED MODE BACK TO AC NOTED
[2022-10-31] MEDS: THERAHONEY GEL 42.5 GM TP SCH (13:28)
--- NOTE | 2022-10-31 13:43 | NUR ---
POST HHN THERAPY X 2 MINS VTe REGISTERING LESS THAN 140ml OF SET Vt OF 500ml; CONCRETE MIXING PLANT SUPERINTENDENT TO CHANGE VENTILATOR
--- NOTE | 2022-10-31 13:55 | NUR ---
CHANGED VENTILATOR NOTED TOLERATING WELL WITHOUT ADVERSE REACTIONS NOTED GOOD CHEST RISE AIRWAY PATENT
--- NOTE | 2022-10-31 17:45 | NUR ---
Pt noted with BM smear and impaction, performed disimpaction. Large amount of soft brown stool removed. Vy care and linen change done. Wound dressing change done.
--- NOTE | 2022-10-31 17:49 | NUR ---
STABLE GOOD CHEST RISE ENDOTRACHEAL SUCTION FOR MODERATE SEMI THICK YELLOW SECRETIONS AIRWAY PATENT
--- NOTE | 2022-10-31 19:10 | NUR ---
Endorsed plan of care to RN.
--- NOTE | 2022-10-31 19:35 | NUR ---
RECEIVED PT. FROM DAY SHIFT RNMT. PT. CONT. ON ETT TO VENT A/C VC RATE 16, TV 500, FIO2 24%, PEEP 5 AND O2 SAT 100%. ASSESSMENT DONE, WITH BILATERAL LUNG SOUNDS DIMINISHED.BOTH EYES NON REACTIVE TO LIGHT.ON SINUS RHYTHM ON THE MONITOR. ABDOMINAL SOUNDS HYPOACTIVE. IV TO RIGHT ARM PICC LINE PATENT AND INTACT. INFUSING PROPOFOL DRIP AT 10 MCG/KG/MIN, LEVOPHED DRIP AT 8MCG/MIN. OGT IN PLACED WITH MINIMAL RESIDUAL RUNNING VITAL AF AT 20 ML/HR. MASTERS CATHETER TO GRAVITY WITH DARK KAI COLOR. SKIN NOT INTACT, PLEASE SEE SKIN DOCUMENTATION. BILATERAL UPPER EXTREMITIES WEEPING. VAP ORAL CARE PROVIDED. REPOSITIONED AND PLACED IN COMFORTABLE POSITION. MAKE ALL NEEDS KNOWN. CALL LIGHT WITHIN REACH. ON BILATERAL SOFT WRIST RESTRAINT. WRIST NO S/S OF INJURY, NO S/S OF POOR CIRCULATION. NO S/S OF PAIN AND WILL CONTINUE TO MONITOR.
[2022-11-01] VITALS (34 sets, daily range): BP systolic 92–126; BP diastolic 56–86
[2022-11-01] MEDS: INSULIN LISPRO SLIDING SCALE 100 UNITS/ML VIAL SUBQ PRN ×2 (00:20→17:50)
[2022-11-01] MEDS: BLOOD GLUCOSE MONITORING 1 DEV DEV FS SCH ×4 (00:21→17:46)
[2022-11-01] MEDS: PIPERACILLIN/TAZOBACTAM 3.375 GM in DEXTROSE 5% 50 ML IV SCH ×3 (04:49→20:20)
[2022-11-01] MEDS: NOREPINEPHRINE 8 MG in DEXTROSE 5% 250 ML IV PRN ×2 (04:50→21:05)
--- NOTE | 2022-11-01 07:15 | NUR ---
RECEIVED BEDSIDE REPORT FROM SPRING TESTER ANH RICHARD FOR CONTINUITY OF CARE. ETT TO VENT, AC VC FIO2 24%, VT 500 RATE 16 PEEP 5. SR ON MONITOR. PICC LINE TO LOR, INFUSING PROPOFOL @10 MCG/KG/MIN, LEVO @8 MCG/MIN, TKO @5 MLS/H. OGT TO TUBE FEEDING, VITAL 1.2 RUNNING @ 20MLS/H, FWF [address] IN [address] TO GRAVITY, URINE DARK KAI AND CLEAR. SEE WOUND ASSESSMENT. SAFETY PRECAUTION ON PLACE, WILL CONTINUE TO MONITOR.
[2022-11-01] MEDS: ALBUTEROL 0.083% 2.5 MG/3 ML NEBU INH SCH ×3 (07:27→19:03)
[2022-11-01] MEDS: IPRATROPIUM 0.02% 0.5 MG/2.5 ML NEBU INH SCH ×3 (07:27→19:03)
--- NOTE | 2022-11-01 07:27 | NUR ---
RECEIVED ON A [employer] R860 VENTILATOR PLUGGED INTO RED OUTLET TOLERATING WELL WITHOUT ADVERSE REACTIONS NOTED TO AN ENDOTRACHEAL TUBE #7.5 SECURED AT 23cm TEETH/GUM LINE WITH AN ANCHOR FAST CUFF PRESSURE CHECKED NOTED AMBU BAG AT BEDSIDE SEDATED EQUAL CHEST RISE ENDOTRACHEAL TUBE SUCTION FOR MODERATE THIN MARTEL SECRETIONS AIRWAY PATENT
[2022-11-01] MEDS: PROPOFOL 1000 MG/100 ML PREMIX 100 ML IV PRN (07:40)
--- NOTE | 2022-11-01 07:43 | NUR ---
ENDORSED PT. TO DAY SHIFT, HILARY SMITH FOR CONTINUITY OF CARE.
--- NOTE | 2022-11-01 08:02 | NUR ---
PLACED ON SEDATION/VACATION AT THIS TIME; PROPOFOL TURNED OFF BY SARAH/GRANITE FABRICATOR
--- NOTE | 2022-11-01 08:05 | NUR ---
PLACED ON CPAP TRIAL NOTED TOLERATING WELL WITHOUT=COMPLICATIONS NOTED GOOD CHEST RISE AIRWAY PATENT SARAH/SENIOR BUSINESS INTELLIGENCE ANALYST NOTIFIED
[2022-11-01] MEDS: DOCUSATE 100 MG/10 ML UDC GT SCH ×2 (08:39→20:17)
[2022-11-01] MEDS: methylPREDNISolone SS 40 MG/ML VIAL IVP SCH (08:39)
[2022-11-01] MEDS: MAGNESIUM OXIDE 400 MG TAB PO SCH (08:40)
[2022-11-01] MEDS: PANTOPRAZOLE 40 MG INJ VIAL IVP SCH (08:40)
[2022-11-01] MEDS: POTASSIUM CHLORIDE 20% 40 MEQ/15 ML UDC GT SCH (09:00)
[2022-11-01 09:51] LABS: BASOPHILS % (AUTO) 0.3 % (0.0-2.0); EOSINOPHILS # (AUTO) 0.3 K/uL (0-0.4); EOSINOPHILS % (AUTO) 2.4 % (0.0-4.0); HEMATOCRIT 31.4 % (36-52); HEMOGLOBIN 10.1 g/dL (12.0-18.0); LYMPHOCYTES # (AUTO) 1.1 K/uL (2.0-11.5); MEAN CORPUSCULAR HEMOGLOBIN 26 pg (27-31); MEAN CORPUSCULAR HGB CONC 32 g/dL (33-37); MEAN CORPUSCULAR VOLUME 82.2 fL (80-94); MONOCYTES # (AUTO) 1.2 K/uL (0.8-1.0); MONOCYTES % (AUTO) 9.7 % (1.7-9.3); NEUTROPHILS # (AUTO) 9.8 K/uL (1.8-7.7); NEUTROPHILS % (AUTO) 78.6 % (42.2-75.2); PLATELET COUNT (AUTO) 140 K/uL (140-450); RED BLOOD CELL COUNT(AUTO) 3.82 MIL/uL (4.20-6.10); RED CELL DISTRIBUTION WIDTH 19.1 % (11.6-13.7); WHITE BLOOD COUNT (AUTO) 12.4 K/uL (4.8-10.8)
[2022-11-01 09:57] LABS: ANION GAP 8.8 (8-16); CARBON DIOXIDE 27.5 mmol/L (21-32); CREATININE 0.6 mg/dL (0.6-1.3); POTASSIUM 4.3 mmol/L (3.5-5.1)
[2022-11-01 10:02] LABS: MAGNESIUM 1.6 mg/dL (1.8-2.4); PHOSPHORUS 2.4 mg/dL (2.5-4.9)
--- NOTE | 2022-11-01 10:13 | NUR ---
TOLERATING CPAP TRIAL WITHOUT EVIDENCE OF RESPIRATORY DISTRESS NOTED EQUAL CHEST RISE GOOD AERATION THROUGHOUT BILATERAL LUNG [place] AIRWAY PATENT
--- NOTE | 2022-11-01 10:13 | NUR ---
PT. AT ICU INTUBATED, ON LEVOPHED, POC DISCUSSED WITH PRIMARY, SACRALCOCCYX WOUND SUPERIOR SITE 3X3 CM WOUND BED WITH DTI, MOIST, NO ODOR, POSSIBLE FROM VASOPRESSOR AND HYPROXIA. INFERIOR SITE 2X2X0.1CM WOUND BED PINK AND MOIST, NO ODOR, NATALY WOUND SKIN NON-BLANCHABLE REDNESS, INTACT. POC DISCUSSED WITH PRIMARY RN ARMAND.
--- NOTE | 2022-11-01 10:17 | NUR ---
PHYSICAL THERAPY NOTE: PATIENT HAD A CHANGE OF CONDITION AND IS NOW INTUBATED/ICU STATUS. NEW PHYSICAL THERAPY ORDER NEEDED ONCE PATIENT IS APPROPRIATE. FILM MASKER AWARE.
--- NOTE | 2022-11-01 11:15 | NUR ---
DR. DEVRIES ROUNDING AT THE BEDSIDE. UPDATED PATIENT INFORMATION. NO NEW ORDER.
[2022-11-01] MEDS: THERAHONEY GEL 42.5 GM TP SCH (12:09)
--- NOTE | 2022-11-01 12:13 | NUR ---
STABLE SEDATED NO DISTRESS NOTED EQUAL CHEST RISE AIRWAY PATENT
--- NOTE | 2022-11-01 13:15 | NUR ---
DR. GEORGE ROUNDING AT BEDSIDE. UPDATING PATIENT INFORMATION. NO NEW ORDER.
--- NOTE | 2022-11-01 13:45 | NUR ---
STABLE NO SOB NOTED GOOD CHEST RISE AIRWAY PATENT
--- NOTE | 2022-11-01 16:20 | NUR ---
DR. CARRASCO ROUNDMICAH AT BEDSIDE. UPDATED PATIENT INFORMATION. NO NEW ORDER
--- NOTE | 2022-11-01 16:25 | NUR ---
ON OR ABOUT THIS TIME; REVIEWED CPAP TRIAL WITH DR. DANILO HERNANDEZ: TOMORROW AM; ABG 1 HOUR AFTER CPAP TRIAL
--- NOTE | 2022-11-01 19:15 | NUR ---
ENDORSED TO NUCLEAR WASTE PROCESS OPERATOR CHAIM/TAVARES FOR CONTINUITY OF CARE. ALL QUESTION ANSWERED.
--- NOTE | 2022-11-01 19:16 | NUR ---
RECEIVED BEDSIDE REPORT FROM SARAH RICHARD. VITALS: HR 62 RR 16 SPO2 100% BP 116/68. PT VENTILATED AND SEDATED. VENTILATOR: MODE AC VC 24% VT 500 RR 16 PEEP 5. BREATHING EVEN AND UNLABORED. OG TUBE IN PLACE WITH FEEDING VITAL AF 1.2 RUNNING AT 20ML/HR. MASTERS CATHETER PRESENT DRAINING URINE. PT ON BILATERAL WRIST RESTRAINTS. RIGHT UPPER ARM PICC INFUSING PROPOFOL AT 10 MG/KG/MIN, LEVOPHED 8 MCG/MIN, AND NS AT 5 ML/HR.
[2022-11-02] VITALS (29 sets, daily range): BP systolic 92–143; BP diastolic 58–86
[2022-11-02] MEDS: BLOOD GLUCOSE MONITORING 1 DEV DEV FS SCH ×5 (00:25→23:57)
[2022-11-02] MEDS: PIPERACILLIN/TAZOBACTAM 3.375 GM in DEXTROSE 5% 50 ML IV SCH ×3 (04:30→20:21)
--- NOTE | 2022-11-02 07:15 | NUR ---
BEDSIDE REPORT GIVEN TO SARAH RICHARD FOR CONTINUITY OF CARE.
--- NOTE | 2022-11-02 07:15 | NUR ---
RECEIVED BEDSIDE REPORT FROM BUILDING MAINTENANCE CUSTODIAN TAVARES/CHAIM RN FOR CONTINUITY OF CARE. PT IS SEDATED. ETT TO VENT, AC VC FIO2 24%, VT 500 RATE 16 PEEP 5. SR ON MONITOR. PICC LINE TO LOR, INFUSING PROPOFOL @15 MCG/KG/MIN, LEVO @8 MCG/MIN, TKO @5 MLS/H. OGT TO TUBE FEEDING, VITAL 1.2 RUNNING @ 20MLS/H, FWF 50ML Q12H. MASTERS IN PLACE TO GRAVITY, URINE DARK KAI AND CLEAR. SEE WOUND ASSESSMENT. BILAT SOFT WRIST RESTRAINT IN PLACE. SAFETY PRECAUTION IN PLACE, WILL CONTINUE TO MONITOR.
[2022-11-02] MEDS: ALBUTEROL 0.083% 2.5 MG/3 ML NEBU INH SCH ×3 (07:41→19:16)
[2022-11-02] MEDS: IPRATROPIUM 0.02% 0.5 MG/2.5 ML NEBU INH SCH ×3 (07:42→19:16)
--- NOTE | 2022-11-02 08:00 | NUR ---
VENT SETTINGS MADE PER MD CARRASCO
[2022-11-02 08:01] LABS: BASOPHILS % (AUTO) 0.3 % (0.0-2.0); EOSINOPHILS # (AUTO) 0.2 K/uL (0-0.4); EOSINOPHILS % (AUTO) 1.9 % (0.0-4.0); HEMATOCRIT 29.9 % (36-52); HEMOGLOBIN 9.8 g/dL (12.0-18.0); LYMPHOCYTES # (AUTO) 1.2 K/uL (2.0-11.5); MEAN CORPUSCULAR HEMOGLOBIN 27 pg (27-31); MEAN CORPUSCULAR HGB CONC 33 g/dL (33-37); MEAN CORPUSCULAR VOLUME 82.3 fL (80-94); MONOCYTES # (AUTO) 1.2 K/uL (0.8-1.0); NEUTROPHILS # (AUTO) 8.3 K/uL (1.8-7.7); NEUTROPHILS % (AUTO) 75.8 % (42.2-75.2); PLATELET COUNT (AUTO) 134 K/uL (140-450); RED BLOOD CELL COUNT(AUTO) 3.63 MIL/uL (4.20-6.10); RED CELL DISTRIBUTION WIDTH 18.9 % (11.6-13.7); WHITE BLOOD COUNT (AUTO) 10.9 K/uL (4.8-10.8)
[2022-11-02 08:19] LABS: ANION GAP 8.1 (8-16); CREATININE 0.6 mg/dL (0.6-1.3); POTASSIUM 4.1 mmol/L (3.5-5.1)
[2022-11-02 08:22] LABS: MAGNESIUM 1.5 mg/dL (1.8-2.4); PHOSPHORUS 2.7 mg/dL (2.5-4.9)
[2022-11-02] MEDS: POTASSIUM CHLORIDE 20% 40 MEQ/15 ML UDC GT SCH (09:00)
[2022-11-02] MEDS: DOCUSATE 100 MG/10 ML UDC GT SCH ×2 (09:06→20:21)
[2022-11-02] MEDS: PANTOPRAZOLE 40 MG INJ VIAL IVP SCH (09:06)
[2022-11-02] MEDS: MAGNESIUM OXIDE 400 MG TAB PO SCH (09:07)
[2022-11-02] MEDS: methylPREDNISolone SS 40 MG/ML VIAL IVP SCH (09:07)
--- NOTE | 2022-11-02 09:30 | NUR ---
DR DEVRIES ROUNDING AT BEDSIDE. UPDATED PT INFORMATION. NO NEW ORDER
[2022-11-02] MEDS: MAG SULF 2000 MG/WATER PREMIX 50 ML IV PRN (11:53)
[2022-11-02] MEDS: THERAHONEY GEL 42.5 GM TP SCH (13:20)
[2022-11-02] MEDS: NOREPINEPHRINE 8 MG in DEXTROSE 5% 250 ML IV PRN (14:31)
[2022-11-02] MEDS: PROPOFOL 1000 MG/100 ML PREMIX 100 ML IV PRN (14:32)
--- NOTE | 2022-11-02 15:05 | NUR ---
DR DANILO MO AT BEDSIDE. UPDATED PT INFORMATION. NO NEW ORDER.
--- NOTE | 2022-11-02 17:55 | NUR ---
DR GEORGE ROUNDING AT BEDSIDE. UPDATED PT INFORMATION.
[2022-11-02] MEDS: INSULIN LISPRO SLIDING SCALE 100 UNITS/ML VIAL SUBQ PRN (18:02)
--- NOTE | 2022-11-02 19:15 | NUR ---
ENDORSED TO OVERNIGHT ASSOCIATE TAVARES/CHAIM RICHARD FOR CONTINUITY OF CARE. ALL QUESTIONS ANSWERED.
--- NOTE | 2022-11-02 19:16 | NUR ---
RECEIVED BEDSIDE REPORT FROM SARAH RICHARD. VITALS: HR 77 RR 15 SPO2 100% BP 112/66. PT VENTILATED AND SEDATED. VENTILATOR: MODE AC VC 24% VT 450 RR 14 PEEP 5. BREATHING EVEN AND UNLABORED. OG TUBE IN PLACE WITH FEEDING VITAL AF 1.2 RUNNING AT 20ML/HR. MASTERS CATHETER PRESENT DRAINING URINE. PT ON BILATERAL SOFT WRIST RESTRAINTS. RIGHT UPPER ARM PICC INFUSING PROPOFOL AT 15 MG/KG/MIN, LEVOPHED 8 MCG/MIN, AND NS AT 5 ML/HR.
[2022-11-03] VITALS (27 sets, daily range): BP systolic 93–157; BP diastolic 54–78
[2022-11-03] MEDS: PIPERACILLIN/TAZOBACTAM 3.375 GM in DEXTROSE 5% 50 ML IV SCH ×3 (04:10→21:13)
[2022-11-03] MEDS: BLOOD GLUCOSE MONITORING 1 DEV DEV FS SCH ×4 (06:20→23:35)
--- NOTE | 2022-11-03 06:50 | NUR ---
RECEIVED PT ON AC 450,F14,+5,24%. VENT PLUGGED INTO RED OUTLET, WHEELS ARE LOCKED, AMBUBAG AT BEDSIDE, ALARMS ARE SET ANS AUDIBLE. BREATH SOUNDS ARE CLEAR, SATURATION 100%. WILL CONTINUE TO MONITOR. CPAP SCHEDULED FOR THE AM.
[2022-11-03] MEDS: ALBUTEROL 0.083% 2.5 MG/3 ML NEBU INH SCH ×3 (06:59→18:50)
[2022-11-03] MEDS: IPRATROPIUM 0.02% 0.5 MG/2.5 ML NEBU INH SCH ×3 (06:59→18:50)
--- NOTE | 2022-11-03 07:10 | NUR ---
BEDSIDE REPORT GIVEN TO WILDER RICHARD.
--- NOTE | 2022-11-03 07:15 | NUR ---
RECEIVED BEDSIDE REPORT FROM UTILITY WORKER DRIVER RN, TAVARES, FOR CONTINUITY OF CARE. PERRL, OPENS EYES TO VOICE. ETT TO VENT AC/VC FIO2 24%, VT 500, RR 14, PEEP 5. SR ON MONITOR. PICC TO LOR INFUSING PROPOFOL AT 15 MCG/KG/MIN, NOREPINEPHRINE AT 8 MCG/MIN, AND NS TKO 5 ML/HR. OGT IN PLACE TO TUBE FEEDING VITAL AF AT 20 ML/HR WITH FWF 150 Q12H. F/C TO GRAVITY DRAINING CLOUDY DARK KAI URINE. BILATERAL SOFT WRIST RESTRAINTS IN PLACE. NO S/SX OF INJURY. STANDARD PRECAUTION. HOB 30 DEGREES FOR VAP AND ASPIRATION PRECAUTION. BED LOCKED AND IN LOWEST POSITION. SARAH HUGGER IN PLACE. BED AIR PUMP IN PLACE.
[2022-11-03] MEDS: PROPOFOL 1000 MG/100 ML PREMIX 100 ML IV PRN ×2 (07:26→17:35)
[2022-11-03] MEDS: MAGNESIUM OXIDE 400 MG TAB PO SCH (08:03)
[2022-11-03] MEDS: DOCUSATE 100 MG/10 ML UDC GT SCH ×2 (08:03→21:11)
[2022-11-03] MEDS: PANTOPRAZOLE 40 MG INJ VIAL IVP SCH (08:03)
[2022-11-03] MEDS: POTASSIUM CHLORIDE 20% 40 MEQ/15 ML UDC GT SCH (08:04)
[2022-11-03] MEDS: methylPREDNISolone SS 40 MG/ML VIAL IVP SCH (08:04)
[2022-11-03 08:48] LABS: BASOPHILS % (AUTO) 0.1 % (0.0-2.0); EOSINOPHILS # (AUTO) 0.2 K/uL (0-0.4); EOSINOPHILS % (AUTO) 2.1 % (0.0-4.0); HEMATOCRIT 28.3 % (36-52); HEMOGLOBIN 9.2 g/dL (12.0-18.0); LYMPHOCYTES # (AUTO) 1.1 K/uL (2.0-11.5); LYMPHOCYTES % (AUTO) 13.7 % (20.5-51.1); MEAN CORPUSCULAR HEMOGLOBIN 27 pg (27-31); MEAN CORPUSCULAR HGB CONC 32 g/dL (33-37); MEAN CORPUSCULAR VOLUME 82.5 fL (80-94); MONOCYTES # (AUTO) 0.9 K/uL (0.8-1.0); MONOCYTES % (AUTO) 11.6 % (1.7-9.3); NEUTROPHILS # (AUTO) 5.6 K/uL (1.8-7.7); NEUTROPHILS % (AUTO) 72.5 % (42.2-75.2); PLATELET COUNT (AUTO) 102 K/uL (140-450); RED BLOOD CELL COUNT(AUTO) 3.43 MIL/uL (4.20-6.10); RED CELL DISTRIBUTION WIDTH 19.8 % (11.6-13.7); WHITE BLOOD COUNT (AUTO) 7.7 K/uL (4.8-10.8)
[2022-11-03 08:57] LABS: ANION GAP 6.3 (8-16); CARBON DIOXIDE 28.7 mmol/L (21-32); CREATININE 0.5 mg/dL (0.6-1.3)
[2022-11-03 08:59] LABS: MAGNESIUM 1.5 mg/dL (1.8-2.4); PHOSPHORUS 2.3 mg/dL (2.5-4.9)
--- NOTE | 2022-11-03 09:00 | NUR ---
CPAP TRAIL 04/21 STARTED ON PATIENT.
[2022-11-03] MEDS: NOREPINEPHRINE 8 MG in DEXTROSE 5% 250 ML IV PRN (09:16)
--- NOTE | 2022-11-03 09:50 | NUR ---
SON AT BEDSIDE. UPDATED ON POC. NO FURTHER QUESTIONS AT THIS TIME.
--- NOTE | 2022-11-03 11:37 | NUR ---
PT CONTINUES TO BE A CPAP. CURRENT SETTING 02/19. VOLUMES ARE BETWEEN 450-650. SATURATION IN 98% ON 24% FIO2. RSBI 29. ABG DONE. WILL CONTINUE TO MONITOR.
[2022-11-03] MEDS: MIDODRINE 5 MG TAB GT SCH ×2 (12:02→18:02)
--- NOTE | 2022-11-03 13:21 | NUR ---
PT CURRENTLY ON CPAP 02/19. VOLUMES BETWEEN 440-750. FOLLOWS COMMANDS. RSBI 28. HOWEVER NIF WAS -17 AND VC WAS 455. WILL CONTINUE TO MONITOR.
--- NOTE | 2022-11-03 13:53 | NUR ---
PT UNABLE TO GIVE NIF ON CPAP TRIAL. CURRENTLY BACK ON FULL VENT SUPPORT. CPAP AGAIN TOMORROW, SETTING 02/19. AND TRY AGAIN PER DR. CARRASCO. WILL CONTINUE TO MONITOR.
[2022-11-03] MEDS: THERAHONEY GEL 42.5 GM TP SCH (14:00)
--- NOTE | 2022-11-03 14:43 | NUR ---
11/03/22 RD FOLLOW UP COMPLETED PLEASE REFER TO NUTRITION ASSESSMENT UNDER CARE ACTIVITY FOR ESTIMATED NUTRITIONAL NEEDS. 1. RECOMMEND INCREASING VITAL AF 1.2 TO GOAL RATE 45 ML/HR, FWF 100 ML Q6H TOLERATED WITH JOSIAH BID FOR WOUND SUPPORT - WITH PROPOFOL @ 6.4 ML/HR (PROVIDES 168 KCAL/DAY) AND JOSIAH BID (PROVIDES 160 KCAL AND 5 GM PROTEIN DAILY) PROVIDES 1080 ML TOTAL VOLUME, 1624 KCAL, 81 GM PROTEIN AND 1275 ML FREE WATER DAILY MEETING 96% ESTIMATED KCAL NEEDS AND 97% ESTIMATED PROTEIN NEEDS; ADEQUATE - INCREASE TF BY 1O ML Q4H UNTIL GOAL IS REACHED TOLERATED 2. RECOMMEND SWALLOW EVAL IF PT EXTUBATED 3. MONITOR GI SYMPTOMS, GASTRIC RESIDUALS AND NUTRITION RELATED LAB VALUES 4. CONSULT RD PRN 5. RD TO FOLLOW-UP 2-3 DAYS, HIGH RISK REVIEWED BY MARVA OSORIO RD
--- NOTE | 2022-11-03 19:25 | NUR ---
ENDORSED BEDSIDE REPORT TO ANTHONY, SURVEYOR HELPER ROD RN, FOR CONTINUITY OF CARE.
[2022-11-03] MEDS: INSULIN LISPRO SLIDING SCALE 100 UNITS/ML VIAL SUBQ PRN (23:37)
[2022-11-04] VITALS (25 sets, daily range): BP systolic 92–111; BP diastolic 50–74
[2022-11-04] MEDS: PIPERACILLIN/TAZOBACTAM 3.375 GM in DEXTROSE 5% 50 ML IV SCH (04:36)
[2022-11-04] MEDS: BLOOD GLUCOSE MONITORING 1 DEV DEV FS SCH ×4 (05:09→23:02)
[2022-11-04 05:42] LABS: MAGNESIUM 1.5 mg/dL (1.8-2.4); PHOSPHORUS 2.3 mg/dL (2.5-4.9)
[2022-11-04 05:43] LABS: BASOPHILS % (AUTO) 0.2 % (0.0-2.0); EOSINOPHILS # (AUTO) 0.1 K/uL (0-0.4); EOSINOPHILS % (AUTO) 1.7 % (0.0-4.0); HEMATOCRIT 26.3 % (36-52); HEMOGLOBIN 8.7 g/dL (12.0-18.0); LYMPHOCYTES # (AUTO) 1.2 K/uL (2.0-11.5); MEAN CORPUSCULAR HEMOGLOBIN 27 pg (27-31); MEAN CORPUSCULAR HGB CONC 33 g/dL (33-37); MEAN CORPUSCULAR VOLUME 82.9 fL (80-94); MONOCYTES # (AUTO) 0.8 K/uL (0.8-1.0); MONOCYTES % (AUTO) 11.9 % (1.7-9.3); NEUTROPHILS # (AUTO) 4.5 K/uL (1.8-7.7); NEUTROPHILS % (AUTO) 68.2 % (42.2-75.2); PLATELET COUNT (AUTO) 85 K/uL (140-450); RED BLOOD CELL COUNT(AUTO) 3.18 MIL/uL (4.20-6.10); RED CELL DISTRIBUTION WIDTH 20.1 % (11.6-13.7); WHITE BLOOD COUNT (AUTO) 6.7 K/uL (4.8-10.8)
[2022-11-04 05:44] LABS: CARBON DIOXIDE 27.9 mmol/L (21-32); CREATININE 0.5 mg/dL (0.6-1.3); POTASSIUM 3.9 mmol/L (3.5-5.1)
[2022-11-04] MEDS: MIDODRINE 5 MG TAB GT SCH ×3 (06:12→18:19)
--- NOTE | 2022-11-04 07:15 | NUR ---
Opening Received report on pt. Pt intubated and sedated with diprivan drip, arousable, in no signs of pain or distress. Pt unable to follow simple commands. Pt also on levophed drip. OGT with tube feeding. Hernandez in place draining urine to gravity. Bilateral soft wrist restraints in place for safety, no skin breakdown noted. Heels offloaded with pillow.
[2022-11-04] MEDS: ALBUTEROL 0.083% 2.5 MG/3 ML NEBU INH SCH ×3 (07:41→19:28)
[2022-11-04] MEDS: IPRATROPIUM 0.02% 0.5 MG/2.5 ML NEBU INH SCH ×3 (07:41→19:28)
[2022-11-04] MEDS: PANTOPRAZOLE 40 MG INJ VIAL IVP SCH (08:34)
[2022-11-04] MEDS: DOCUSATE 100 MG/10 ML UDC GT SCH ×2 (08:34→21:00)
[2022-11-04] MEDS: POTASSIUM CHLORIDE 20% 40 MEQ/15 ML UDC GT SCH (08:34)
--- NOTE | 2022-11-04 08:35 | NUR ---
PT IS PLACED ON CPAP 8/. TOLERATING OKAY WILL CONTINUE TO MONITOR
[2022-11-04] MEDS: MAGNESIUM OXIDE 400 MG TAB GT SCH (08:36)
--- NOTE | 2022-11-04 09:00 | NUR ---
Pt placed on CPAP for SBT and sedation vacation. Pt following commands but uncooperative with care despite explanation of events.
[2022-11-04] MEDS: PROPOFOL 1000 MG/100 ML PREMIX 100 ML IV PRN (10:00)
--- NOTE | 2022-11-04 10:00 | NUR ---
Pt noted with moderate to large amount of soft brown BM. Perform veronika care and wound care with dressing change. Pt uncooperative with care.
[2022-11-04] MEDS: NOREPINEPHRINE 8 MG in DEXTROSE 5% 250 ML IV PRN (12:30)
[2022-11-04] MEDS: THERAHONEY GEL 42.5 GM TP SCH (13:00)
--- NOTE | 2022-11-04 14:26 | NUR ---
Dr. Ocampo rounding on patient and speaking with pt's son, Cuco Salguero, at bedside. Dr. Ocampo states to start SBT again, RT at bedside and change to SBT mode. Patient placed on sedation vacation for SBT.
--- NOTE | 2022-11-04 14:38 | NUR ---
ROUNDED WITH DR CARRASCO ON PT REQUESTED TO PLACE PT ON CPAP AGAIN SINCE THE SON IS HERE AND PT IS CALM WITH HIM AT BEDSIDE AND MAY BE MORE COMPLIANT. PT IS ON CPAP 8/5 AND RECEIVING TIDAL VOLUMES OF >480. RR IS 14. WE ATTEMPTED TO GET A GOOD NIF ON PT AND HE WAS NOT SO COMPLIANT SO THE NIF WAS -10. REQUESTED THAT WE LEAVE PT ON CPAP AND FOR ONE HOUR AND THEN TRY AND GET WEANING PARAMETERS WHILE SON IS AT BEDSIDE. IF THIS GOES WELL. ABG WILL BE ORDERED AND DR CARRASCO WILL BE NOTIFIED OF RESULTS TO PLACE FURTHER ORDERS. WILL CONTINUE TO MONITOR PT. SON IS ON BOARD WITH PLAN.
--- NOTE | 2022-11-04 16:20 | NUR ---
PT IS STILL ON CPAP / DOING WELL. NO DISTRESS NOTED . GOT WEANING PARAMETERS PER DR CARRASCO. RSBI 24 VC 790 NIF -19 ABG WAS COLLECTED AND RESULTS FROM WEANING AND ABG WERE TEXTED TO AND SHE CALLED AND GAVE ORDERS TO EXTUBATE PT AND PLACE HIM HFNC 25L 30%. SON IS AT BEDSIDE . UNDERSTANDS PLAN AND IN ON BOARD. HFNC WAS SET UP BEFORE PT WAS EXTUBATED. @1650 PT WAS EXTUBATED POSITIVE LEAK WAS HEARD PRE-EXTUBATION. NO DISTRESS FROM PT. PT WAS PLACED ON HFNC 25L 30% WITH HR 78 AND SPO2 98%. WILL CONTINUE TO MONITOR PT. PT WAS GIVEN BREATHING TX POST EXTUBATION,
--- NOTE | 2022-11-04 16:50 | NUR ---
Patient extubated per MD order and placed on high flow nasal cannula 25L FiO2 30%. Pt tolerating well. Noted small skin tear from holster adhesive on right cheek, bleeding controlled.
--- NOTE | 2022-11-04 17:30 | NUR ---
Pt noted with BM, perform veronika care and linen change. Pt tolerated well.
--- NOTE | 2022-11-04 19:03 | NUR ---
Closing Pt remains on high flow, no signs of acute distress, states no pain. Pt requesting to eat dinner, but informed pt and pt's son regarding swallow evaluation that needs to be done after extubation. Pt remains on levophed drip. Restraints removed. Will endorse plan of care to RN.
--- NOTE | 2022-11-04 22:24 | NUR ---
AT 2100 THE COLACE PO WAS NOT GIVEN DUE TO DIARRHEA AND PT. IS FOR ELMER COHN
--- NOTE | 2022-11-04 22:25 | NUR ---
PT HAD BEEN REMOVING HIS 02 AND WAS INSTRUCTED TO KEEP IT ALL THE TIME
--- NOTE | 2022-11-04 22:27 | NUR ---
PT OS CLOSELY WATCHED FOR 02 REMOVAL
--- NOTE | 2022-11-04 22:43 | NUR ---
AT 2240 BOTH WRIST RESTRAINTS APPLIED BEC HE KEEPS PULLING OR REMOVING THE O2
[2022-11-04] MEDS: ONDANSETRON 4 MG/2 ML VIAL IVP PRN (22:49)
--- NOTE | 2022-11-04 22:57 | NUR ---
CONFUSED AND DISORIENTED , KEPR RESTRAINTS ON BOTHH WRISTS
[2022-11-05] VITALS (25 sets, daily range): BP systolic 89–113; BP diastolic 38–97
--- NOTE | 2022-11-05 04:45 | NUR ---
RECEIVED CALL FROM HILARY CRUZ, STATING PT HAD REMOVED HIGH FLOW NASAL CANNULA AND WAS ON ROOM AIR FOR APPROXIMATELY 10-15MINS, AND MAINTAINED SATURATION OF 99%. I REMOVED THE HIGH FLOW CANNULA THAT THE RN HAD REPLACED. I LISTENED TO THE PTS BREATH SOUNDS, AND MONITORED THE PATIENT AND SPOKE WITH HIM FOR 10 MINS. THE PT MAINTAINED A SATURATION OF 97% AND HAD NO INCREASE IN WORK OF BREATHING. PT PLACED ON ROOM AIR AT THIS TIME. PT ASKING TO HAVE RESTRAINTS REMOVED AND STATED HE WANTS TO EAT.
[2022-11-05] MEDS: BLOOD GLUCOSE MONITORING 1 DEV DEV FS SCH ×4 (05:40→23:48)
[2022-11-05] MEDS: MIDODRINE 5 MG TAB GT SCH ×3 (07:00→18:36)
[2022-11-05] MEDS: IPRATROPIUM 0.02% 0.5 MG/2.5 ML NEBU INH SCH ×3 (07:07→19:00)
[2022-11-05] MEDS: ALBUTEROL 0.083% 2.5 MG/3 ML NEBU INH SCH ×3 (07:07→20:20)
--- NOTE | 2022-11-05 07:25 | NUR ---
SBAR REPORT RECEIVED FROM HILARY CRUZ. ALL CARE ASSUMED. PT RESTING IN BED WITH EYES OPEN AND ABLE TO COMMUNICATE. ON NASAL CANNULA FLOWING AT 2 L/MIN. WITH LEVOPHED DRIP AT 4MCG/MIN AND NORMAL SALINE AT 5ML/HR- FLOWING WELL OVER RIGHT PICC LINE. WITH MASTERS CATHETER DRAINING BY GRAVITY TO A DARK KAI-COLORED URINE. BED IN LOW AND LOCKED POSITION; ON SEMI-URIBE'S POSITION WITH CALL LIGHT WITHIN REACH.
[2022-11-05] MEDS: PANTOPRAZOLE 40 MG INJ VIAL IVP SCH (08:22)
[2022-11-05] MEDS: POTASSIUM CHLORIDE 20% 40 MEQ/15 ML UDC GT SCH (09:00)
[2022-11-05] MEDS: MAGNESIUM OXIDE 400 MG TAB GT SCH (09:00)
[2022-11-05] MEDS: DOCUSATE 100 MG/10 ML UDC GT SCH ×2 (09:00→21:00)
--- NOTE | 2022-11-05 09:28 | NUR ---
PT WAS FOUND IN BED WITH OXYGEN OFF AND SATURATION WAS 82%. PT HAD BE USING THE COMMODE AND STANDING FOR AWHILE. PLACED PT BACK ON HFNC WITH SETTINGS OF 35 LPM AND 40% FiO2. PT SATURATION RETURNED TO 96%. ABG WAS DONE AND RESULTS ARE pH 7.4, pCO2 32.8, pO2 65.8, HCO3- 20, AND BE -3.8. PER DOCTOR PLACED PATIENT ON NASAL CANNULA AND PUT HIM ON IS. Addendum: 11/05/22 at 0953 by Lubna Kenny RT ABOVE NOTE WAS FOR DIFFERENT PT. THIS PT WAS FOUND ON ROOM AIR WITH SATURATION AT 78%. NOT CONFIDENT THAT THIS WAS 100% ACCURATE. PT HANDS WERE VERY COLD. PLACED PT BACK ON 2L NC AND SATURATION INCREASED TO 96 %. PT GIVEN TREATMENT VIA HHN AND SATURATION ESAU TO 100%. PT TOLERATED TXN WELL AND WAS AWAKE AND ALERT.
--- NOTE | 2022-11-05 13:21 | NUR ---
SACRAL-COCCYX SKIN CONDITION DOCTOR, PATIENT AND SON NOTIFIED Addendum: 11/05/22 at 1402 by FELIZ LINARES RN WOUND CARE COMPLETED WITH WOUND CARE NURSE HILARY SANDOVAL. CLEANED WOUND, MEASURED AND TOOK PICTURES. DRESSINGS CHANGED. REPOSITIONED PT AND KEPT COMFORTABLE AND SAFE.
--- NOTE | 2022-11-05 13:30 | NUR ---
WOUND CARE RE-EVALUATION NOTE: SKIN ASSESSMENT DONE WITH PRIMARY RN MATT AND RUBI. PT. IS AAX4, VERBALIZES NEEDS. SON AT BED SIDE VISIT. NEW SKIN TEAR TO LEFT ARM ON TOP OF ECCHYMOSIS SKIN, 0.5X2CM SUPERFICIAL DEPTH, WOUND BED MOIST, NATALY WOUND SKIN WEEPING INTACT. LEFT LATERAL FOOT SKIN PINK INTACT. LEFT HEEL BLANCHABLE REDNESS, SKIN INTACT. SACRALCOCCYX PI CHANGE OF CONDITION. DR. TOLBERT NOTIFIED AND SON EDWARD AT BEDSIDE WOUND PHOTO REVIEWED, POC DISCUSSED ALL QUESTIONS ANSWERED. SON AND PT. WITH COMORBIDITIES EXPLAINED, PT. AND SON VERBALIZE UNDERSTANDING. POC DISCUSSED WITH PRIMARY NURSE. PT PENDING SPEECH EVALUATION. RECOMMEND CURRENT SKIN/ WOUND CARE INTERVENTIONS. COMORBIDITIES RELATED TO DELAY WOUND HEALING, FURTHER SKIN BREAKS AND UN-AVOIDABLE PRESSURE INJURY: BOWEL AND URINARY INCONTINENCE, INFECTION, HYPOXEMIC DECREASE TISSUE PERFUSION, TISSUE ISCHEMA, DECREASE MOBILITY AND FUNCTIONAL ABILITIES, AND HOB ELEVATED THE MAJORITY OF TIMES DUE TO MEDICAL REASONS. 10/22/2022 ALBUMIN 1.7. -BILATERAL UPPER EXTREMITIES, WEEPING, ABSORBENT PAD IN PLACE. -SACRALCOCCYX PRESSURE INJURY WITH 2 SITES. SUPERIOR SITE UN-STAGEABLE: 3X3CM. WOUND BED 50% PINK, AND 50% MARTEL COLOR, THIN SLOUGH TISSUE, MOIST, NO ODOR. NATALY-WOUND SKIN MOIST DTI AND INFERIOR SITE STAGE3 2X2X0.1CM WOUND BED 100% PINK, MOIST, NO ODOR. NATALY-WOUND SKIN DTI, MOIST AND INDICATED FURTHER DAMAGE. -LEFT LATERAL FOOT MULTIPLE NON-BLANCHABLE REDNESS RESOLVED
[2022-11-05] MEDS: THERAHONEY GEL 42.5 GM TP SCH (13:35)
--- NOTE | 2022-11-05 15:17 | NUR ---
DC PLANNING A 61 Y.O. MALE PATIENT ADMITTED FOR CHF,PNEUMONIA AND ACUTE RESP FAILURE FOR WORSENING SOB.PATIENT IS O2 DEPENDENT.PATIENT STAYS IN THE HOTEL.HX OF COPD AND ASTHMA.HAS BEEN ON HI FLOW O2 AND COULD NOT BE ACCOMMODATED AT ICU [facility] -NO ICU BED AVAILABLE .10/29 CODED AND GOT INTUBATED THEN WAS TRANSFERRED TO ICU.WAS ON LEVOPHED AND PROPOFOL.EXTUBATED 11/04 AND ON 2L NC.PENDING SWALLOWING EVAL.DC PLAN -POSSIBLE HOME WITH SON WHEN PATIENT RESPONDS TO TX.CM TO FOLLOW. Addendum: 11/08/22 at 1140 by ABBEY TAYLOR CM DC PLANNING PATIENT IS ALERT AND ORIENTED X 3.VS STABLE.ON ROOM AIR.OFF LEVOPHED.2 CMS AND SW AT BEDSIDE VERIFYING ADVANCE MEDICAL DIRECTIVE.PATIENT CLAIMED HE WILL UPDATE HIS SOCIAL SCIENTIST.PT EVAL REQUESTED.CM TO FOLLOW. Addendum: 11/10/22 at 1226 by ABBEY TAYLOR CM DC PLANNING BACK TO ICU AFTER BEING TRANSFERRED TO ROOM 108-A(TELEMETRY UNIT) 11/08 FOR UNRESPONSIVENESS WITH B/P DROPPING.CT SCAN REQUESTED.ON .AMMONIA LEVEL PENDING.CM TO FOLLOW. Addendum: 11/10/22 at 1407 by Karen Gallardo RN DC PLANNING: RECEIVED A CALL FROM [employer] SPOKE WITH KANDY CHEN PATIENT'S CLINICALS NOTIFIED HER PT IS IN ICU FOR LOW BP AND ON LEVO DRIP. PER KANDY THE AUTH SHOULD BE OK TO COVER THE HOSPITAL STAY. CM TO FOLLOW Addendum: 11/10/22 at 1435 by ABBEY TAYLOR CM LATE ENTRY CT OF HEAD SHOWS MILD ATROPHY, NO ACUTE INTRACRANIAL PROCESS.AMMONIA LEVEL ELEVATED.TO START LACTULOSE PO.BID.CM TO FOLLOW. Addendum: 11/12/22 at 1527 by Karen Gallardo RN DC PLANNING: CALLED [facility] SPOKE WITH MORAIMA CHEN PT'S CLINICAL AND PATIENT IS STABLE FOR TRANSFER. CM REQUESTED FOR TRANSFER FOR TELE BED. PER MORAIMA TO FAX THE CLINICALS AND NEEDS RAPID COVID TEST. PROVIDE DR VINCENT'S CELL PHONE FOR PEER TO PEER. AWAITING FOR RAPID COVID TEST. DC PLAN TO TRANSFER TO [facility]. CM TO FOLLOW Addendum: 11/12/22 at 1630 by Karen Gallardo RN DC PLANNING: [facility] SPOKE WITH MORAIMA CHAUDHARY DR REVIEW THE CLINICALS AND STATED PATIENT WAS BOUNCING BACK TO ICU AND TELE ,ON LEVOPHED DRIP 2 DAYS AGO AND FOR THEM IF PATIENT HAS TO GO TO ICU ON THE WEEKEND THEY DON'T HAVE ICU BED OR NURSE AND MD DECIDED THE PATIENT TO STAY AT [facility] UNTIL TUESDAY. CM ASKED FOR THE ADMIN DAYS FOR [facility] STAY PER MORAIMA WILL APPROVE ALL THE DAYS. CM TO FOLLOW
--- NOTE | 2022-11-05 15:30 | NUR ---
11/05/22 RD FOLLOW UP COMPLETED PLEASE REFER TO NUTRITION ASSESSMENT UNDER CARE ACTIVITY FOR ESTIMATED NUTRITIONAL NEEDS. 1. CONTINUE VITAL AF 1.2 TO GOAL RATE 45 ML/HR, FWF 100 ML Q6H TOLERATED WITH JOSIAH BID FOR WOUND SUPPORT - WITH JOSIAH BID (PROVIDES 160 KCAL AND 5 GM PROTEIN DAILY) PROVIDES 1080 ML TOTAL VOLUME, 1456 KCAL, 81 GM PROTEIN AND 1275 ML FREE WATER DAILY MEETING 87% ESTIMATED KCAL NEEDS AND 97% ESTIMATED PROTEIN NEEDS; ADEQUATE 2. IF PT PASSES SWALLOW EVAL, RECOMMEND CARDIAC DIET WITH JOSIAH BID FOR WOUND SUPPORT AND TEXTURE MODIFICATION PER ST RECOMMENDATIONS. 3. CONSULT RD PRN 4. RD TO FOLLOW-UP 2-3 DAYS, HIGH RISK REVIEWED BY MARVA OSORIO RD
--- NOTE | 2022-11-05 16:57 | NUR ---
SPEECH THERAPIST ARRIVED AND SWALLOW EVALUATION DONE AT BEDSIDE. SPEECH THERAPISTS RECOMMENDED PUREE DIET FOR 1-2 DAYS BEFORE PROGRESSING DIET. WILL REEVALUATE TOMORROW.
--- NOTE | 2022-11-05 17:42 | NUR ---
PT WAS SEENF OR DYSPHAGIA. PTW ABLE TO SAFELY SWALLOW PUREE DIET WITH THIN LIQUID WITHOUT S/S OF ASPIRATION. RECOMMENDATION PUREE DIET WITH THIN LIQUID
--- NOTE | 2022-11-05 19:13 | NUR ---
SBAR REPORT GIVEN TO HILARY CRUZ. ALL CARES ENDORSED.
[2022-11-06] VITALS (22 sets, daily range): BP systolic 91–114; BP diastolic 44–68
[2022-11-06] MEDS ORDERED: NOREPINEPHRINE 4 MG/4 ML VIAL IV ONE (00:38)
[2022-11-06] MEDS: NOREPINEPHRINE 8 MG in DEXTROSE 5% 250 ML IV PRN (00:38)
[2022-11-06 05:00] LABS: BASOPHILS % (AUTO) 0.4 % (0.0-2.0); EOSINOPHILS # (AUTO) 0.1 K/uL (0-0.4); EOSINOPHILS % (AUTO) 2.1 % (0.0-4.0); HEMATOCRIT 25.7 % (36-52); HEMOGLOBIN 8.4 g/dL (12.0-18.0); LYMPHOCYTES # (AUTO) 0.6 K/uL (2.0-11.5); LYMPHOCYTES % (AUTO) 11.3 % (20.5-51.1); MEAN CORPUSCULAR HEMOGLOBIN 27 pg (27-31); MEAN CORPUSCULAR HGB CONC 33 g/dL (33-37); MEAN CORPUSCULAR VOLUME 83.4 fL (80-94); MONOCYTES # (AUTO) 0.6 K/uL (0.8-1.0); MONOCYTES % (AUTO) 11.2 % (1.7-9.3); PLATELET COUNT (AUTO) 62 K/uL (140-450); RED BLOOD CELL COUNT(AUTO) 3.08 MIL/uL (4.20-6.10); RED CELL DISTRIBUTION WIDTH 20.9 % (11.6-13.7); WHITE BLOOD COUNT (AUTO) 5.3 K/uL (4.8-10.8)
[2022-11-06 05:42] LABS: CARBON DIOXIDE 27.3 mmol/L (21-32); CREATININE 0.5 mg/dL (0.6-1.3); POTASSIUM 4.3 mmol/L (3.5-5.1)
[2022-11-06 05:57] LABS: MAGNESIUM 1.2 mg/dL (1.8-2.4); PHOSPHORUS 2.4 mg/dL (2.5-4.9)
[2022-11-06] MEDS: BLOOD GLUCOSE MONITORING 1 DEV DEV FS SCH ×4 (06:25→23:20)
[2022-11-06] MEDS: MIDODRINE 5 MG TAB GT SCH ×3 (06:26→20:22)
--- NOTE | 2022-11-06 07:25 | NUR ---
RECEIVE ENDOSMENT FROM ANTHONY RICHARD AT THE TIME PE AWAKE AND ORIENTED X3 ON O2 2L/NC O2 SAT94%, IV FLUID HAS PICC ON RT UPPER ARM, INFUSING LEVOPHED AT 4 MCG/KG/MIN.SKIN DRY WARM TO TOUCH . F/C DRAIN CLEAR KAI URINE..
--- NOTE | 2022-11-06 08:15 | NUR ---
REPORT RECEIVED FROM INGRID RICHARD. PT A&OX 4. NO SIGNS OF DISTRESS.
[2022-11-06] MEDS: IPRATROPIUM 0.02% 0.5 MG/2.5 ML NEBU INH SCH ×3 (08:44→19:32)
[2022-11-06] MEDS: ALBUTEROL 0.083% 2.5 MG/3 ML NEBU INH SCH ×3 (08:45→19:32)
[2022-11-06] MEDS: POTASSIUM CHLORIDE 20% 40 MEQ/15 ML UDC GT SCH (09:00)
[2022-11-06] MEDS: DOCUSATE 100 MG/10 ML UDC GT SCH ×2 (09:09→20:22)
[2022-11-06] MEDS: PANTOPRAZOLE 40 MG INJ VIAL IVP SCH (09:09)
[2022-11-06] MEDS: MAGNESIUM OXIDE 400 MG TAB GT SCH (09:10)
--- NOTE | 2022-11-06 09:19 | NUR ---
SEEN BY DR. BOSE AT BEDSIDE ORDER RECEIVED. HOLD PO POTASSIUM DUE TO K. LEVEL 4.2.
--- NOTE | 2022-11-06 10:08 | NUR ---
SEEN BY DR BERMUDEZ AT BEDSIDE ORDER RECEIVED , TO WEAN DOWN LEVOPHED TO KEEP MAP AT 55.
--- NOTE | 2022-11-06 12:15 | NUR ---
VISIT BY THE PT. SUPERVISOR SELF SERVICE STORE LOOKING FOR PT. ASHTYN THE SECURITY WAS INFORM , UNABLE TO FIND THE WALLET.
--- NOTE | 2022-11-06 12:20 | NUR ---
BLOOD GLUCOSE 175 INSULIN COVER ORDERER. PT. AWAKE AND ALERT HAS GOOD APATITE.
[2022-11-06] MEDS: INSULIN LISPRO SLIDING SCALE 100 UNITS/ML VIAL SUBQ PRN ×2 (12:29→23:24)
[2022-11-06] MEDS: THERAHONEY GEL 42.5 GM TP SCH (13:00)
--- NOTE | 2022-11-06 14:02 | NUR ---
SEEN BY DR. JEAN AT BED SIDE NO ORDER RECEIVED PT WILL RECEIVE PT. OOB.IN CHAIR.
--- NOTE | 2022-11-06 17:25 | NUR ---
PT WAS SEEN FOR DYSPHAGIA. PT WAS ABL E TO SAFELY SWALLOW MS DIET WITH THIN LIQUID WITHOUT S/S OF ASPIRATION. RECOMMENDATION MS DIET WITH THIN LIQUID
[2022-11-06] MEDS: ACETAMINOPHEN 325 MG TAB PO PRN (18:11)
--- NOTE | 2022-11-06 18:12 | NUR ---
C/O BACK PAIN, TYLENOL GIVEN ORDERED.
[2022-11-06] MEDS: LACTULOSE 20 GM/30 ML UDC PO PRN (20:23)
--- NOTE | 2022-11-06 21:30 | NUR ---
at 2100, pt was moaning due to abdominal pain and he scored itas 9.Dr null was texted about the pt. complaint and he ordered Protonix 40 mg Ivp one time
[2022-11-06] MEDS ORDERED: PANTOPRAZOLE 40 MG INJ VIAL IVP SCH (21:35)
--- NOTE | 2022-11-06 21:43 | NUR ---
[id number] , Protonix 40 mg IVP given as ordered
--- NOTE | 2022-11-06 21:52 | NUR ---
at 2152 was c/0 of abd. pain and nausea , hence zofran 4 mg Ivp was given
[2022-11-06] MEDS: ONDANSETRON 4 MG/2 ML VIAL IVP PRN (21:53)
--- NOTE | 2022-11-06 22:16 | NUR ---
At 2200, pt was made comfortable in bed by giving him bed bath and linen changed. Anxiety subsided after bath and repositioning. Had small soft stool.
--- NOTE | 2022-11-06 23:31 | NUR ---
ASLEEP. ON, on SR
[2022-11-07] VITALS (21 sets, daily range): BP systolic 89–125; BP diastolic 50–71
--- NOTE | 2022-11-07 00:36 | NUR ---
NO COMPLAINT THIS TIME , REPOSITIONED. ORAL ACRE DONE
--- NOTE | 2022-11-07 04:17 | NUR ---
0415- [facility] DRAWN
--- NOTE | 2022-11-07 05:10 | NUR ---
0500- HAD ONE SOFT STOOL AND COMPLETE BED BATH DONE WITH LINEN CHANGE DONE
--- NOTE | 2022-11-07 05:33 | NUR ---
ORAL CARE DONE AND PERINIAL CARE DONE
[2022-11-07] MEDS: BLOOD GLUCOSE MONITORING 1 DEV DEV FS SCH ×3 (05:52→18:32)
[2022-11-07 06:06] LABS: BASOPHILS % (AUTO) 0.4 % (0.0-2.0); EOSINOPHILS # (AUTO) 0.2 K/uL (0-0.4); HEMATOCRIT 24.2 % (36-52); LYMPHOCYTES # (AUTO) 0.7 K/uL (2.0-11.5); MEAN CORPUSCULAR HEMOGLOBIN 27 pg (27-31); MEAN CORPUSCULAR HGB CONC 33 g/dL (33-37); MEAN CORPUSCULAR VOLUME 82.3 fL (80-94); MONOCYTES # (AUTO) 0.6 K/uL (0.8-1.0); NEUTROPHILS # (AUTO) 2.8 K/uL (1.8-7.7); NEUTROPHILS % (AUTO) 65.4 % (42.2-75.2); PLATELET COUNT (AUTO) 56 K/uL (140-450); RED BLOOD CELL COUNT(AUTO) 2.94 MIL/uL (4.20-6.10); RED CELL DISTRIBUTION WIDTH 20.8 % (11.6-13.7); WHITE BLOOD COUNT (AUTO) 4.2 K/uL (4.8-10.8)
[2022-11-07 06:10] LABS: MAGNESIUM 1.1 mg/dL (1.8-2.4); PHOSPHORUS 2.4 mg/dL (2.5-4.9)
[2022-11-07] MEDS: MIDODRINE 5 MG TAB GT SCH ×3 (06:33→18:24)
[2022-11-07 06:46] LABS: EOSINOPHILS % (AUTO) 4.4 % (0.0-4.0); LYMPHOCYTES % (AUTO) 16.2 % (20.5-51.1); MONOCYTES % (AUTO) 13.6 % (1.7-9.3)
--- NOTE | 2022-11-07 07:15 | NUR ---
RECEIVED BEDSIDE REPORT FROM MANAGING PRINCIPAL ANTHONY RN. PT IS AWAKE, A/O X 3 (NAME, PLACE, EVENT). ON NC 2L, O2 SAT 100%, NO S/S OF ACUTE RESPIRATORY DISTRESS. ST ON MONITOR. SOFT DIET. MASTERS IN PLACE TO GRAVITY, DARK KAI. PICC TO LOR, INFUSING LEVOPHED @ 4 MCG/MIN, TKO @ 5 ML/H. SEE WOUND ASSESSMENT. SAFETY PRECAUTION IN PLACE, WILL CONTINUE TO MONITOR.
[2022-11-07] MEDS: ALBUTEROL 0.083% 2.5 MG/3 ML NEBU INH SCH ×3 (07:54→19:44)
--- NOTE | 2022-11-07 07:54 | NUR ---
PATIENT ON BEDSIDE CAMODE; REQUESTING HHN THERAPY AT A LATER TIME; NO DISTRESS NOTED; GOOD CHEST RISE; SATURATION 100% ON ROOM AIR; PRODUCT TECHNICIAN TO ATTEMPT HHN THERAPY AT A LATER TIME
[2022-11-07] MEDS: IPRATROPIUM 0.02% 0.5 MG/2.5 ML NEBU INH SCH ×3 (07:55→19:43)
[2022-11-07] MEDS: MAG SULF 2000 MG/WATER PREMIX 50 ML IV PRN (08:13)
[2022-11-07] MEDS: DOCUSATE 100 MG/10 ML UDC GT SCH ×2 (08:57→21:00)
[2022-11-07] MEDS: PANTOPRAZOLE 40 MG INJ VIAL IVP SCH (08:57)
[2022-11-07] MEDS: MAGNESIUM OXIDE 400 MG TAB GT SCH (09:00)
[2022-11-07] MEDS: ACETAMINOPHEN 325 MG TAB PO PRN ×2 (09:00→18:34)
[2022-11-07] MEDS: POTASSIUM CHLORIDE 20% 40 MEQ/15 ML UDC GT SCH (09:00)
[2022-11-07 09:06] LABS: ANION GAP 8.5 (8-16); CARBON DIOXIDE 27.7 mmol/L (21-32); CREATININE 0.2 mg/dL (0.6-1.3); POTASSIUM 4.2 mmol/L (3.5-5.1)
--- NOTE | 2022-11-07 09:28 | NUR ---
DR POLLOCK ROUNDING AT BEDSIDE. UPDATED PT INFORMATION. ORDER TO CLOSELY MONITOR ACTIVE BLEEDING DUE TO TRENDING DOWN LOW PLTS 56, POSSIBLE TRANSFUSION 11/08
--- NOTE | 2022-11-07 10:36 | NUR ---
DR BERMUDEZ ROUNDING AT BEDSIDE. UPDATED PT INFORMATION. NO NEW ORDER.
--- NOTE | 2022-11-07 11:25 | NUR ---
11/07/22 RD FOLLOW UP COMPLETED. PLEASE REFER TO NUTRITION ASSESSMENT UNDER CARE ACTIVITY FOR ESTIMATED NUTRITIONAL NEEDS. 1. RECOMMEND CCHO 60 GRAMS MECHANICAL SOFT DIET PT TOLERATES. -CONTINUE WITH JOSIAH BID TO PROMOTE WOUND HEALING (PROVIDES 160 KCAL AND 5 GM PROTEIN DAILY) 2. WHEN/IF MEDICALLY APPROPRIATE, RECOMMEND ADVANCING TO REGULAR TEXTURE CCHO 60 GRAMS DIET WITH JOSIAH BID FOR WOUND SUPPORT 3.RD TO FOLLOW-UP IN 2-3 DAYS PATIENT IS HIGH RISK. JONEL JEFFERY RD
[2022-11-07] MEDS: INSULIN LISPRO SLIDING SCALE 100 UNITS/ML VIAL SUBQ PRN ×2 (11:50→18:35)
[2022-11-07] MEDS: THERAHONEY GEL 42.5 GM TP SCH (13:28)
--- NOTE | 2022-11-07 13:41 | NUR ---
FAMILY/SON AT BEDSIDE. UPDATED PT INFORMATION.
--- NOTE | 2022-11-07 13:48 | NUR ---
TOLERATED INCENTIVE SPIROMETRY THERAPY (IS) WELL WITHOUT COMPLICATIONS NOTED; ENCOURAGED PATIENT TO USE IS EVERY 1 TO 2 HOURS WHILE AWAKE
--- NOTE | 2022-11-07 19:15 | NUR ---
ENDORSED TO ROOM CLEANER ANTONIO RN FOR CONTINUITY OF CARE. ALL QUESTIONS ANSWERED.
--- NOTE | 2022-11-07 19:35 | NUR ---
RECEIVED PATIENT FROM AM SHIFT RN, PATIENT IS A/O X2 TO PERSON AND PLACE. PATIENT IS ON ROOM AIR WITH NO SIGNS OF DISTRESS. PATIENT IS ON A MECHANICAL SOFT DIET. PATIENT HAS A LOR PICC INFUSING NS TKO. PATIENT HAS A MASTERS INTACT AND SECURE DRAINING VIA GRAVITY. SAFETY MEASURES IN PLACE, WILL CONTINUE TO MONITOR THE PATIENT.
[2022-11-08] VITALS (14 sets, daily range): BP systolic 84–102; BP diastolic 43–61
[2022-11-08] MEDS: BLOOD GLUCOSE MONITORING 1 DEV DEV FS SCH ×5 (00:22→23:20)
[2022-11-08] MEDS: ACETAMINOPHEN 325 MG TAB PO PRN (05:09)
[2022-11-08 05:51] LABS: BASOPHILS % (AUTO) 0.9 % (0.0-2.0); EOSINOPHILS # (AUTO) 0.2 K/uL (0-0.4); HEMATOCRIT 23.7 % (36-52); HEMOGLOBIN 7.8 g/dL (12.0-18.0); LYMPHOCYTES # (AUTO) 0.7 K/uL (2.0-11.5); LYMPHOCYTES % (AUTO) 19.5 % (20.5-51.1); MEAN CORPUSCULAR HEMOGLOBIN 27 pg (27-31); MEAN CORPUSCULAR HGB CONC 33 g/dL (33-37); MEAN CORPUSCULAR VOLUME 83.4 fL (80-94); MONOCYTES # (AUTO) 0.5 K/uL (0.8-1.0); MONOCYTES % (AUTO) 14.5 % (1.7-9.3); NEUTROPHILS # (AUTO) 2.2 K/uL (1.8-7.7); NEUTROPHILS % (AUTO) 60.1 % (42.2-75.2); PLATELET COUNT (AUTO) 54 K/uL (140-450); RED BLOOD CELL COUNT(AUTO) 2.84 MIL/uL (4.20-6.10); RED CELL DISTRIBUTION WIDTH 21.1 % (11.6-13.7); WHITE BLOOD COUNT (AUTO) 3.6 K/uL (4.8-10.8)
--- NOTE | 2022-11-08 05:51 | NUR ---
WOUND PICTURES TAKEN, DRESSING CHANGED AND CLEANSED, LINEN CHANGED AND PARTIAL BED BATH GIVEN.
[2022-11-08] MEDS: MIDODRINE 5 MG TAB GT SCH ×3 (06:12→21:04)
[2022-11-08 06:59] LABS: MAGNESIUM 1.4 mg/dL (1.8-2.4); PHOSPHORUS 2.5 mg/dL (2.5-4.9)
--- NOTE | 2022-11-08 07:14 | NUR ---
GAVE REPORT TO SARAH RICHARD WHO ASSUMED TOTAL CARE OF THE PATIENT, ALL QUESTIONS AND CONCERNS ANSWERED
--- NOTE | 2022-11-08 07:15 | NUR ---
RECEIVED BEDSIDE REPORT FROM [employer]ACLE [employer] DEVELOPER ANTONIO RICHARD. PT IS SLEEPING. ON ROOM AIR, NO S/S OF ACUTE RESPIRATORY DISTRESS. SR ON MONITOR. CCHO MECHANICAL SOFT DIET. MASTERS IN PLACE TO GRAVITY, DARK KAI. PICC TO LOR, INFUSING TKO @ 5 ML/H. SEE WOUND ASSESSMENT. GENERALIZED WEAKNESS, BEDREST. SAFETY PRECAUTION IN PLACE, WILL CONTINUE TO MONITOR.
[2022-11-08] MEDS: MAG SULF 2000 MG/WATER PREMIX 50 ML IV PRN (07:57)
[2022-11-08] MEDS: ALBUTEROL 0.083% 2.5 MG/3 ML NEBU INH SCH ×3 (08:00→19:03)
[2022-11-08] MEDS: IPRATROPIUM 0.02% 0.5 MG/2.5 ML NEBU INH SCH ×3 (08:00→19:03)
[2022-11-08] MEDS: DOCUSATE 100 MG/10 ML UDC GT SCH ×2 (08:21→21:00)
[2022-11-08] MEDS: PANTOPRAZOLE 40 MG INJ VIAL IVP SCH (08:21)
[2022-11-08] MEDS: MAGNESIUM OXIDE 400 MG TAB GT SCH (08:22)
[2022-11-08 08:57] LABS: ANION GAP 11.2 (8-16); CARBON DIOXIDE 25.3 mmol/L (21-32); CREATININE 0.6 mg/dL (0.6-1.3); POTASSIUM 4.5 mmol/L (3.5-5.1)
[2022-11-08] MEDS: POTASSIUM CHLORIDE 20% 40 MEQ/15 ML UDC GT SCH (09:00)
--- NOTE | 2022-11-08 09:25 | NUR ---
DR JAYCOB MO AT BEDSIDE. UPDATED PT INFORMATION. LOW PLTS 54, LOW WBC 3.6. WILL CONTINUE TO MONITOR S/S OF ACTIVE BLEEDING. NO NEW ORDER RECEIVED.
--- NOTE | 2022-11-08 13:00 | NUR ---
DR GEORGE ROUNDING AT BEDSIDE. UPDATED PT INFORMATION.
--- NOTE | 2022-11-08 13:02 | NUR ---
DR RAMIREZ ROUNDING AT BEDSIDE. UPDATED PT INFORMATION. NEW ORDER RECEIVED.
[2022-11-08] MEDS: THERAHONEY GEL 42.5 GM TP SCH (13:52)
--- NOTE | 2022-11-08 15:40 | NUR ---
PT TRANSFERRED TO 108A VIA BED WITH HELP. VS STABLE. SBAR GIVEN TO GALINDO RICHARD FOR CONTINUITY OF CARE. ALL QUESTIONS ANSWERED.
--- NOTE | 2022-11-08 15:56 | NUR ---
RECEIVE ENDORSEMENT/REPORT FORM ICU NURSE SARAH THAT PATIENT SENT FROM [facility] BY HOME HEALTH NURSE DUE TO WEAKNESS & SOB. PATIENT WAS INTUBATED IN [facility] AT 10/29/2022 & TRANSFER TO ICU (EXTUBATE AT 11/04/2022). PATIENT DIAGNOSIS WITH SOB W/ ASTHMA EXACERBATION WITH MITRAL VALVE STENOSIS, PLEURAL EFFUSION, COPD W/ ASTHMA, UMBILICAL CORD HERNIA, HTN. HLD, EPIGASTRIC VARICES, CIRRHOSIS, ASCITES W/ S/P L.THORACENTESES. ACUTE ON CHRONIC HEART FAILURE, ACUTE RESPIRATORY FAILURE, SEPSIS, HYPERGLYCEMIA ON ACCUCHECK Q6HR. PATIENT IS COVID NEGATIVE, ADMIT UNDER CARE OF DR. WILLOUGHBY. NKA, FULL CODE, BED REST, ALERT X3; CURRENT ON ROOM AIR, TEL. MONITOR SHOW SR, DIET [id number]. MOST RECENT BM WAS 11/05/2022. PICC AT LOR DOUBLE LUMEN SALINE LOCK; SKIN TEAR NOTED AT L. UPPER ARM, DISCOLORATION PRESENT AT BILATERAL INNER ANTECUBITAL AREA, OPEN WOUND AT COCCYX. WILL CONTINUE TO MONITOR
--- NOTE | 2022-11-08 19:36 | NUR ---
ENDORSE PATIENT IN STABLE CONDITION TO PM SHIFT NURSE WHILE LOR PICC-LINE SALINE LOCK, PATIENT IS S/P DISCONTINUE MASTERS FROM ICU
--- NOTE | 2022-11-08 21:00 | NUR ---
BP RE CHECK 88/47 , HR 84 , RR 18 , O2 SAT 95 % NO DIZZINESS HE SAID , BUT C/O BACK AND RIB PAIN HE RATES THE PAIN 9/10 , WILL GIVE MIDODRINE 15MG /P.O , PICC LINE INTACT AND PATENT - WILL REFER TO DR. DEVRIES AT ONCE . CHARGE NURSE FINN WILL INFORM . Addendum: 11/08/22 at 2211 by Robyn Boyle RN AT 2108 - DR. DEVRIES ORDERED TORADOL 1X DOSE ONLY , PER DR. DEVRIES IF THE BP PREIST TO LOW - PT MAY GO BACK TO ICU
[2022-11-08] MEDS ORDERED: KETOROLAC 15 MG/ML VIAL IVP SCH (22:05)
--- NOTE | 2022-11-08 23:21 | NUR ---
BP RE CHECK 88/46 , PER PT PAIN LESSEN , NO COMPLAIN MADE ASIDE FROM PAIN , WILL CLOSELY WATCH THE THE BP - IF STILL PERSISTENT LOW - WILL TRANSFER TO ICU , PER PT HE HAS NO PEE SINCE THE FC REMOVE AT ICU - ABD. SOFT NO PALPATED FULL BLADDER , NO URGE TO PEE , WILL DO BLADDER SCAN . WILL CONT. TO MONITOR , ON TELE MONITOR - SR , O2 SAT WNL . CALL LIGHT WITHIN REACH .
[2022-11-08] MEDS ORDERED: NACL 0.9% 1,000 ML IV SCH (23:55)
[2022-11-09 00:20] VITALS: BP 85/45
--- NOTE | 2022-11-09 00:25 | NUR ---
BP RE CHECK 85 / 45 , INFORM CHARGE NURSE , PT NO COMPLAIN MADE , FULLY AWAKE .
--- NOTE | 2022-11-09 00:39 | NUR ---
BP RE CHECK 90/35 , ON LEFT UPPER EXTREMITIES , BP RE CHECK ON LEFT LOWER ARM IN SUPINE POSITION 93 / 58 - WILL CONT. TO MONITOR , PT DENIES DIZZINESS , FOR CLOSELY WATCH AND FOR POSSIBLE TRANSFER TO ICU , ICU INFORM C/O CHARGE NURSE FINN . ON TELE MONITOR - HR 77 , O2 SAT 96 5 RA , CALL LIGHT WITHIN REACH .
--- NOTE | 2022-11-09 02:09 | NUR ---
BP RE CHECK ON L UPPER ARM 87/45 , BP RE CHECK ON L LOWER LEG 105/53 , HR 76 , 02 SAT 96 5 , NO COMPLAIN MADE , WILL CONT. TO MONITOR .
--- NOTE | 2022-11-09 03:00 | NUR ---
BP RE CHECK ON L ARM 89 /55 , ON L LOWER LEG 109 / 53 , NO COMPLAIN MADE , COMFORTABLE RESTING ON BED , O2 SAT 98 5 , HR 77 , RR 18 - INFORM THE ICU ABOUT THE PT'S STATUS PER ICU NURSE THEY ARE BUSY NOW BECAUSE EMETERIO ARE CODING 1 ICU PT . PER ICU NURSE SHE WILL TALK FIRST MORNING SHOW HOST ABOUT THIS MATTER . INFORM CHARGE NURSE FINN .WILL CONT. TO MONITOR .
--- NOTE | 2022-11-09 03:30 | NUR ---
ERIN DROP BY IN THE NURSE'S STATION - I GIVE AN UPDATE ABOUT THE PT I UPDATING HIM PT IS STILL ON CLOSELY MONITORING , PER ERIN CONT. CLOSELY MONITORING THE PT , PER ERIN THE ICU STAFF STILL VERY BUSY . CHARGE NURSE FINN FAGAN .
[2022-11-09 04:00] VITALS: BP 90/54
--- NOTE | 2022-11-09 04:00 | NUR ---
KELSEY RN AT BEDSIDE , PT. REFUSE TO TURN , REFUSED AM CARE , REFUSE CHANGE THE GOWN . WILL INFORM CHARGE NURSE .
--- NOTE | 2022-11-09 04:30 | NUR ---
PT REFUSED FOR BLADDER SCAN , REVIEW I AND O RECORD YESTERDAY NO U.O RECORD , PT. REFUSE TO PALPATE THE BLADDER - CHARGE NURSE FINN INFORM .
[2022-11-09] MEDS: BLOOD GLUCOSE MONITORING 1 DEV DEV FS SCH ×3 (06:30→17:08)
--- NOTE | 2022-11-09 06:56 | NUR ---
BP 90/55 ON THE L ARM , 105/60 ON L LEG - WILL MEDICATE . CALL LIGHT WITHIN REACH .
--- NOTE | 2022-11-09 06:58 | NUR ---
PER PHARMACIST MAY GIVE MIDODRINE NOW BP 90 / 56
[2022-11-09] MEDS: MIDODRINE 5 MG TAB GT SCH (07:01)
[2022-11-09 07:11] LABS: ANION GAP 6.6 (8-16); CARBON DIOXIDE 26.8 mmol/L (21-32); CREATININE 0.5 mg/dL (0.6-1.3); POTASSIUM 4.4 mmol/L (3.5-5.1)
[2022-11-09 07:12] LABS: MAGNESIUM 1.5 mg/dL (1.8-2.4); PHOSPHORUS 2.2 mg/dL (2.5-4.9)
[2022-11-09 07:20] LABS: BASOPHILS % (AUTO) 0.9 % (0.0-2.0); EOSINOPHILS # (AUTO) 0.2 K/uL (0-0.4); EOSINOPHILS % (AUTO) 4.2 % (0.0-4.0); HEMATOCRIT 25.3 % (36-52); HEMOGLOBIN 8.3 g/dL (12.0-18.0); LYMPHOCYTES # (AUTO) 0.7 K/uL (2.0-11.5); LYMPHOCYTES % (AUTO) 16.7 % (20.5-51.1); MEAN CORPUSCULAR HEMOGLOBIN 28 pg (27-31); MEAN CORPUSCULAR HGB CONC 33 g/dL (33-37); MEAN CORPUSCULAR VOLUME 84.3 fL (80-94); MONOCYTES # (AUTO) 0.4 K/uL (0.8-1.0); MONOCYTES % (AUTO) 11.1 % (1.7-9.3); NEUTROPHILS # (AUTO) 2.7 K/uL (1.8-7.7); NEUTROPHILS % (AUTO) 67.1 % (42.2-75.2); PLATELET COUNT (AUTO) 69 K/uL (140-450); RED BLOOD CELL COUNT(AUTO) 3.01 MIL/uL (4.20-6.10); RED CELL DISTRIBUTION WIDTH 22.4 % (11.6-13.7)
--- NOTE | 2022-11-09 07:25 | NUR ---
RECEIVED REPORT FROM INSPECTOR TOOL FOR CONTINUITY OF CARE. INITIAL ASSESSMENT DONE. AWAKE. RESP. EVEN AND UNLABORED. IV ON SALINE LOCK. PICC LINE INTACT TO LOR. NOT IN ANY DISTRESS NOTED. CALL LIGHT KEPT WITHIN REACH. WILL CONTINUE TO MONITOR.
--- NOTE | 2022-11-09 07:28 | NUR ---
ENDORSED PT TO AM SHIFT FOR CONT. OF CARE PT IS AWAKE . I ENDORSED TO AM NURSE CLOSELY WATCH THE U.O OF THE PT - PT REFUSE BLADDER SCAN AND HE REFUSE ME TO PALPATE THE ABD. AM NURSE VERBALIZES UNDERSTANDING .
[2022-11-09] MEDS: ALBUTEROL 0.083% 2.5 MG/3 ML NEBU INH SCH ×3 (07:38→19:17)
[2022-11-09] MEDS: IPRATROPIUM 0.02% 0.5 MG/2.5 ML NEBU INH SCH ×3 (07:38→19:17)
[2022-11-09] MEDS ORDERED: POTASSIUM CHLORIDE 20% 40 MEQ/15 ML UDC PO PRN (07:54)
[2022-11-09 08:00] VITALS: BP 97/49
[2022-11-09] MEDS: POTASSIUM CHLORIDE 20% 40 MEQ/15 ML UDC PO SCH (09:34)
[2022-11-09] MEDS: MAGNESIUM OXIDE 400 MG TAB PO SCH (09:36)
[2022-11-09] MEDS: DOCUSATE 100 MG/10 ML UDC PO SCH ×2 (09:36→21:00)
--- NOTE | 2022-11-09 09:36 | NUR ---
SCHEDULED MEDICATIONS GIVEN. TOLERATED WELL.
[2022-11-09] MEDS: PANTOPRAZOLE 40 MG INJ VIAL IVP SCH (10:00)
[2022-11-09 12:00] VITALS: BP 98/52
--- NOTE | 2022-11-09 12:31 | NUR ---
BS CHECKED 91. NO COVERAGE NEEDED.
--- NOTE | 2022-11-09 13:15 | NUR ---
PT REFUSED BREATHING TX. HE WAS TAKING A NAP I TRIED TO WAKE HIM. NO DISTRESS NOTED. WILL CONTINUE TO MONITOR.
[2022-11-09] MEDS: MAG SULF 2000 MG/WATER PREMIX 50 ML IV PRN (13:17)
--- NOTE | 2022-11-09 13:17 | NUR ---
MAGNESIUM 1.5, PRN MAG RIDER WAS GIVEN BY LIOR RICHARD. TOLERATED WELL.
[2022-11-09] MEDS: THERAHONEY GEL 42.5 GM TP SCH (13:19)
[2022-11-09] MEDS: MIDODRINE 5 MG TAB PO SCH ×2 (13:19→18:37)
[2022-11-09 16:00] VITALS: BP 109/59
--- NOTE | 2022-11-09 17:08 | NUR ---
BS CHECKED 97. NO COVERAGE NEEDED.
--- NOTE | 2022-11-09 17:40 | NUR ---
PT NO URINE OUTPUT. BLADDER SCAN >552. DR. DEVRIES NOTIFIED WITH NEW ORDER, INSERT MASTERS CATHETER. NOTED AND CARRIED OUT.
--- NOTE | 2022-11-09 17:56 | NUR ---
INSERTED F/C DR 16. TOLERATED PROCEDURE, WITH DARK YELLOW URINE OUTPUT.
--- NOTE | 2022-11-09 18:10 | NUR ---
URINE OUTPUT COLLECTED 450 CC.
--- NOTE | 2022-11-09 19:40 | NUR ---
REPORT GIVEN TO NIGHT NURSE ADÁN FOR CONTINUITY OF CARE. REMAINS STABLE.
[2022-11-09 20:00] VITALS: BP 99/58
[2022-11-10] VITALS (12 sets, daily range): BP systolic 43–105; BP diastolic 43–65
[2022-11-10] MEDS: BLOOD GLUCOSE MONITORING 1 DEV DEV FS SCH ×5 (01:00→23:57)
--- NOTE | 2022-11-10 01:00 | NUR ---
RE VISIT THE PT . SLEEPING TRIED TO WAKE UP HIM , VERY LITTLE RESPONSE , APPLIES STERNAL RUBS TO PT . STILL VERY LITTLE RESPONSE . CALL HELP OF MIKHAIL , SHE TRIED TO WAKE UP THE PT TOO . VERY LITTLE RESPONSE . BP 105/ 57 , O2 SAT 95 % , HR 89 AT TELE MONITOR , T 98.2 ,F , BS 90 - WILL REFER TO DR. VINCENT STAT . - FOR CLOSELY WATCH .
--- NOTE | 2022-11-10 01:28 | NUR ---
NO RESPONSE FROM DR. VINCENT . INFORM BRASS INSTRUMENT REPAIR TECHNICIAN ERIN MEEKS BY SEE THE PT - HE TRIES TO WAKE UP TOO THE PT. BUT STILL TOO LITTLE RESPONSE , EASILY GO BACK TO SLEEP . RE CHECK BP 105/57 , SR ON TELE MONITOR , RR 18 , O2 SAT 95 5 - FOR CLOSELY WATCH . Addendum: 11/10/22 at 0134 by Robyn Boyle RN AT 01:30 BP MEAN 74 .
--- NOTE | 2022-11-10 02:43 | NUR ---
5 PERSONS TRIED TO WAKE THE PT - BUT STILL VERY LITTLE RESPONSE OCASSIONALLY MOANING NO SPONTANEOUSLY EYE OPENING , PUPILLARY CHECK REACTIVE , BP 105/ 55 , SR ON TELE MONITOR .RR 18 , O2 SAT 95 % , RA . Addendum: 11/10/22 at 0247 by Robyn Boyle RN CALL DIRECTLY TO DR. VINCENT , PER DR. VINCENT GIVE D 50/50 NOW , REMINDS DR. VINCENT THE LATEST BS OF PT. IS 90 , SHE VERBALIZES SHE AWARE ABOUT IT . AND STAT SERUM BMP NOW . - WILL CARRY OUT .
[2022-11-10] MEDS ORDERED: DEXTROSE 50% 50 ML SYR IVP STA (02:55)
[2022-11-10 03:12] LABS: ANION GAP 6.6 (8-16); CARBON DIOXIDE 26.9 mmol/L (21-32); CREATININE 0.5 mg/dL (0.6-1.3); POTASSIUM 4.5 mmol/L (3.5-5.1)
[2022-11-10 06:53] LABS: BASOPHILS % (AUTO) 0.5 % (0.0-2.0); EOSINOPHILS % (AUTO) 0.7 % (0.0-4.0); HEMATOCRIT 25.8 % (36-52); HEMOGLOBIN 8.5 g/dL (12.0-18.0); LYMPHOCYTES # (AUTO) 0.7 K/uL (2.0-11.5); LYMPHOCYTES % (AUTO) 11.7 % (20.5-51.1); MEAN CORPUSCULAR HEMOGLOBIN 28 pg (27-31); MEAN CORPUSCULAR HGB CONC 33 g/dL (33-37); MEAN CORPUSCULAR VOLUME 83.5 fL (80-94); MONOCYTES # (AUTO) 0.7 K/uL (0.8-1.0); MONOCYTES % (AUTO) 10.9 % (1.7-9.3); NEUTROPHILS # (AUTO) 4.7 K/uL (1.8-7.7); NEUTROPHILS % (AUTO) 76.2 % (42.2-75.2); PLATELET COUNT (AUTO) 87 K/uL (140-450); RED BLOOD CELL COUNT(AUTO) 3.09 MIL/uL (4.20-6.10); RED CELL DISTRIBUTION WIDTH 22.7 % (11.6-13.7); WHITE BLOOD COUNT (AUTO) 6.2 K/uL (4.8-10.8)
[2022-11-10] MEDS: MIDODRINE 5 MG TAB PO SCH ×3 (07:00→18:22)
[2022-11-10 07:02] LABS: ANION GAP 6.6 (8-16); CARBON DIOXIDE 26.6 mmol/L (21-32); CREATININE 0.6 mg/dL (0.6-1.3); POTASSIUM 4.2 mmol/L (3.5-5.1)
[2022-11-10 07:03] LABS: MAGNESIUM 1.6 mg/dL (1.8-2.4); PHOSPHORUS 2.4 mg/dL (2.5-4.9)
--- NOTE | 2022-11-10 07:18 | NUR ---
still less responsive to sternal rubs , drooling of saliva . refer to dr clayton about oral sched. med . bp 92/54 , o2 sat 96 % hr 95.t 98.8 f - will endorse .
[2022-11-10] MEDS: IPRATROPIUM 0.02% 0.5 MG/2.5 ML NEBU INH SCH ×3 (07:19→19:24)
[2022-11-10] MEDS: ALBUTEROL 0.083% 2.5 MG/3 ML NEBU INH SCH ×3 (07:19→19:24)
--- NOTE | 2022-11-10 08:00 | NUR ---
GOT REPORT FROM THE NIGHT NURSE PT IS VERY LETHARGIC, CAN NOT RESPOND TO THE VOICE [id number]
[2022-11-10] MEDS ORDERED: NOREPINEPHRINE 4 MG in DEXTROSE 5% 250 ML IV PRN (08:30)
--- NOTE | 2022-11-10 08:39 | NUR ---
TRANSFERRED PT TO ICU, REPORT GIVEN. AT THE TIME OF TRANSFER V.S BP 84/55 HR 106 TEMP 97.6 SAT 96% , RES 17. [id number]
[2022-11-10] MEDS: DOCUSATE 100 MG/10 ML UDC PO SCH ×3 (09:00→21:20)
--- NOTE | 2022-11-10 09:10 | NUR ---
PT TRANSFERRED FROM TELEMETRY. UNRESPONSIVE TO STERNAL RUB AND EXTERNAL STIMULI. BP 99/55. HR 99. 2L NC, RESPIRATIONS EVEN AND UNLABORED. SR ON MONITOR. EDEMA TO BUE. PICC TO LOR SALINE LOCK. F/C TO GRAVITY DRAINING LIGHT KAI URINE. GENERALIZED WEAKNESS. HOB 30 DEGREES FOR ASPIRATION PRECAUTIONS. STANDARD PRECAUTION. BED LOCKED AND IN LOWEST POSITION.
[2022-11-10] MEDS: POTASSIUM CHLORIDE 20% 40 MEQ/15 ML UDC PO SCH (09:30)
[2022-11-10] MEDS: MAGNESIUM OXIDE 400 MG TAB PO SCH (09:31)
[2022-11-10] MEDS: PANTOPRAZOLE 40 MG INJ VIAL IVP SCH (09:31)
--- NOTE | 2022-11-10 09:40 | NUR ---
INSERTED 16FR NGT TO R NARE. PT TOLERATED WELL.
[2022-11-10] MEDS: LACTULOSE 20 GM/30 ML UDC PO PRN (10:00)
--- NOTE | 2022-11-10 10:28 | NUR ---
PT. HUNTER AT ICU. POC DISCUSSED WITH PRIMARY RN GELY. ALL SKIN CARE AND PI INTERVENTIONS IN PLACE.
--- NOTE | 2022-11-10 10:40 | NUR ---
PHONE CALL TO PERSON TO NOTIFY, CHRISTOPHER JAIME, TO UPDATE ON PT PLAN OF CARE.
--- NOTE | 2022-11-10 12:33 | NUR ---
11/10/22 RD FOLLOW UP COMPLETED PLEASE REFER TO NUTRITION ASSESSMENT UNDER CARE ACTIVITY FOR ESTIMATED NUTRITIONAL NEEDS. 1. MONITOR NPO STATUS 2. WHEN/IF MEDICALLY APPROPRIATE, RECOMMEND CONTINUE CCHO 60 GRAMS MECHANICAL SOFT DIET PT TOLERATES. -CONTINUE WITH JOSIAH BID TO PROMOTE WOUND HEALING (PROVIDES 160 KCAL AND 5 GM PROTEIN DAILY) 3. IF TF READY TO BE STARTED, RECOMMEND OSMOLITE 1.5 @ GOAL RATE 50 ML/HR, FWF 150 ML Q6H TOLERATED WITH JOSIAH BID FOR WOUND SUPPORT - WITH JOSIAH BID (PROVIDES 160 KCAL AND 5 GM PROTEIN DAILY) PROVIDES 1200 ML TOTAL VOLUME, 1960 KCAL, 80 GM PROTEIN AND 1800 ML FREE WATER DAILY MEETING 100% ESTIMATED KCAL NEEDS AND 96% ESTIMATED PROTEIN NEEDS; ADEQUATE 4. RD TO FOLLOW-UP 2-3 DAYS, HIGH RISK REVIEWED BY MARVA OSORIO RD
[2022-11-10] MEDS: THERAHONEY GEL 42.5 GM TP SCH (12:41)
--- NOTE | 2022-11-10 19:10 | NUR ---
ENDORSED BEDSIDE REPORT TO ANTHONY, ARC AIR OPERATOR RN FOR CONTINUITY OF CARE
[2022-11-10] MEDS: LACTULOSE 20 GM/30 ML UDC PO SCH (21:20)
--- NOTE | 2022-11-10 22:14 | NUR ---
1930- recd report fromday shift nurse Deyanira. Vitals are stable
--- NOTE | 2022-11-10 22:16 | NUR ---
2000, repositioned to sides
--- NOTE | 2022-11-10 22:17 | NUR ---
22- remain unresponsive but opening eyes
[2022-11-11] VITALS (17 sets, daily range): BP systolic 87–120; BP diastolic 50–79
--- NOTE | 2022-11-11 03:25 | NUR ---
0000 AWAKE ON AND OFF. MOANING AT TIMES
[2022-11-11] MEDS: BLOOD GLUCOSE MONITORING 1 DEV DEV FS SCH ×3 (05:12→17:49)
[2022-11-11] MEDS: MIDODRINE 5 MG TAB PO SCH ×3 (06:28→20:03)
--- NOTE | 2022-11-11 06:44 | NUR ---
0200- REPOSITIONED AND ORAL CARE DONE
--- NOTE | 2022-11-11 06:45 | NUR ---
0400- COMPLETE BED BATH DONE
--- NOTE | 2022-11-11 06:46 | NUR ---
0600 - REPOSITIONED AND ORAL CARE DONE
[2022-11-11] MEDS: ALBUTEROL 0.083% 2.5 MG/3 ML NEBU INH SCH ×3 (07:13→19:43)
[2022-11-11] MEDS: IPRATROPIUM 0.02% 0.5 MG/2.5 ML NEBU INH SCH ×3 (07:13→19:43)
[2022-11-11] MEDS: PANTOPRAZOLE 40 MG INJ VIAL IVP SCH (09:02)
[2022-11-11] MEDS: MAGNESIUM OXIDE 400 MG TAB PO SCH (09:02)
[2022-11-11] MEDS: DOCUSATE 100 MG/10 ML UDC PO SCH ×2 (09:02→20:17)
[2022-11-11] MEDS: LACTULOSE 20 GM/30 ML UDC PO SCH ×2 (09:02→20:17)
[2022-11-11] MEDS: POTASSIUM CHLORIDE 20% 40 MEQ/15 ML UDC PO SCH (09:02)
[2022-11-11] MEDS: THERAHONEY GEL 42.5 GM TP SCH (13:29)
[2022-11-12] VITALS (9 sets, daily range): BP systolic 96–119; BP diastolic 48–71
--- NOTE | 2022-11-12 03:24 | NUR ---
REPORT GIVEN TO JONEL RICHARD. PT IS STABLE AND NOT ON PRESSORS AND ON ROOM AIR. MENTATION HAS IMPROVED TO THE POINT THAT PATIENT IS ABLE TO SAY WORDS SUCH "NO" PT HAS HAD ONE BM. SKIN REMAINS TO BE ANASARCA AND WEEPY. NGT REMAINS IN RIGHT NARE WELL IS INDWELLING CATHETER.
--- NOTE | 2022-11-12 03:25 | NUR ---
RECEIVED PT FROM ICU NURSE FOR CONTINUITY OF CARE. PT IS STABLE
[2022-11-12] MEDS: BLOOD GLUCOSE MONITORING 1 DEV DEV FS SCH ×4 (06:00→18:00)
[2022-11-12] MEDS: MIDODRINE 5 MG TAB PO SCH ×3 (06:31→19:00)
[2022-11-12] MEDS: ALBUTEROL 0.083% 2.5 MG/3 ML NEBU INH SCH ×3 (07:00→19:40)
[2022-11-12] MEDS: IPRATROPIUM 0.02% 0.5 MG/2.5 ML NEBU INH SCH ×3 (07:00→19:39)
[2022-11-12] MEDS: MAGNESIUM OXIDE 400 MG TAB PO SCH (09:00)
--- NOTE | 2022-11-12 10:33 | NUR ---
WOUND CARE RE-EVALUATION NOTE: PT. BACK TO [facility], ASSIST C.N.A. TO PROVIDE,BED BATH, WOUND ASSESSMENT DONE WITH DRESSING CHANGED. DURING ASSESSMENT PT. IS RESISTANCE FOR CARE,YELLING, SWING ARMS, RESTLESS. NEW SKIN ISSUE TO LEFT POSTERIOR UPPER ARM SWELLING, WARM WITH ERYTHEMA, SKIN INTACT. RIGHT UPPER ARM CENTRAL LINE DRESSING DATE 10/29/2022 SHOWS TO PRIMARY RN MARBIN. POC DISCUSSED WITH MARBIN. PT. REMAIN NPO. F/C PATENT, MODERATE AMOUNT YELLOW URINE OUTPUT OBSERVED. BM X1 DURING ASSESSMENT, POSITION PT. WITH WEDGE POSITIONER, OFFLOAD SACRALCOCCYX. -ELEVATE LEFT UPPER ARM WITH PILLOWS CONTINUE TO MONITOR -SKIN TEAR TO LEFT ARM ON TOP OF ECCHYMOSIS SKIN 0.5X2CM DRY SCAB -LEFT LATERAL FOOT SKIN PINK INTACT. LEFT HEEL BLANCHABLE REDNESS, SKIN INTACT. -BILATERAL UPPER EXTREMITIES, WEEPING SKIN RESOLVED -SACRALCOCCYX PRESSURE INJURY WITH 2 SITES. SUPERIOR SITE UN-STAGEABLE: 3X3CM. WOUND BED 50% PINK, AND 50% MARTEL COLOR, THIN SLOUGH TISSUE, MOIST, NO ODOR. NATALY-WOUND SKIN MOIST DTI AND INFERIOR SITE STAGE 3 2X2X0.1CM WOUND BED 100% PINK, MOIST, NO ODOR. NATALY-WOUND SKIN DTI, MOIST AND INDICATED FURTHER DAMAGE.
[2022-11-12] MEDS: POTASSIUM CHLORIDE 20% 40 MEQ/15 ML UDC PO SCH (10:57)
[2022-11-12] MEDS: DOCUSATE 100 MG/10 ML UDC PO SCH ×2 (10:57→21:36)
[2022-11-12] MEDS: PANTOPRAZOLE 40 MG INJ VIAL IVP SCH (10:57)
[2022-11-12] MEDS: LACTULOSE 20 GM/30 ML UDC PO SCH ×2 (10:58→21:36)
[2022-11-12] MEDS: MAG SULF 2000 MG/WATER PREMIX 50 ML IV PRN (11:45)
[2022-11-12] MEDS: THERAHONEY GEL 42.5 GM TP SCH (14:40)
--- NOTE | 2022-11-12 16:16 | NUR ---
11/12/22 RD FOLLOW UP COMPLETED PLEASE REFER TO NUTRITION ASSESSMENT UNDER CARE ACTIVITY FOR ESTIMATED NUTRITIONAL NEEDS. 1. MONITOR NPO STATUS 2. WHEN/IF MEDICALLY APPROPRIATE, RECOMMEND CCHO 60 GRAM DIET WITH TEXTURE MODIFICATION PER ST SWALLOW EVAL RECOMMENDATIONS -CONTINUE WITH JOSIAH BID TO PROMOTE WOUND HEALING (PROVIDES 160 KCAL AND 5 GM PROTEIN DAILY) 3. IF TF READY TO BE STARTED, RECOMMEND OSMOLITE 1.5 @ GOAL RATE 50 ML/HR, FWF 150 ML Q6H TOLERATED WITH JOSIAH BID FOR WOUND SUPPORT - WITH JOSIAH BID (PROVIDES 160 KCAL AND 5 GM PROTEIN DAILY) PROVIDES 1200 ML TOTAL VOLUME, 1960 KCAL, 80 GM PROTEIN AND 1800 ML FREE WATER DAILY MEETING 100% ESTIMATED KCAL NEEDS AND 96% ESTIMATED PROTEIN NEEDS; ADEQUATE 4. RD TO FOLLOW-UP 2-3 DAYS, HIGH RISK REVIEWED BY MARVA OSORIO RD
--- NOTE | 2022-11-12 19:40 | NUR ---
PT SITTING IN BED STABLE ON ROOM AIR. PT DID NOT WAN FACE MASK FOR TX SO DID A BLOW BY TX. PT NOT COMPLIANT FOR INCENTIVE SPIROMETER. PT BS CLEAR. NO SIGNS OF RESP DISTRESS.
[2022-11-13] VITALS (8 sets, daily range): BP systolic 99–120; BP diastolic 56–70
[2022-11-13] MEDS: BLOOD GLUCOSE MONITORING 1 DEV DEV FS SCH ×4 (00:27→18:00)
[2022-11-13] MEDS: MIDODRINE 5 MG TAB PO SCH ×3 (06:16→18:18)
[2022-11-13] MEDS: PANTOPRAZOLE 40 MG INJ VIAL IVP SCH (09:57)
[2022-11-13] MEDS: POTASSIUM CHLORIDE 20% 40 MEQ/15 ML UDC PO SCH (09:58)
[2022-11-13] MEDS: MAGNESIUM OXIDE 400 MG TAB PO SCH (09:58)
[2022-11-13] MEDS: DOCUSATE 100 MG/10 ML UDC PO SCH ×2 (09:58→20:22)
[2022-11-13] MEDS: LACTULOSE 20 GM/30 ML UDC PO SCH ×3 (09:59→18:19)
--- NOTE | 2022-11-13 14:16 | NUR ---
DAVID JOHN, HERE TO VISIT PT AND SPEAK W PCP. DR. SHRESTHA, COVERING FOR DR. VINCENT, NOTIFIED. DAVID JOHN, ALSO ASKED FOR PT BELONGINGS. ICU PROMPTED AND BROUGHT BELONGINGS IN. DAVID JOHN, DIET CHANGED -
[2022-11-13] MEDS: THERAHONEY GEL 42.5 GM TP SCH (14:53)
--- NOTE | 2022-11-13 16:12 | NUR ---
DAVID JOHN, LEFT UNIT AT ABOUT 1600. PT'S MOUTH CLEANED, PT GIVEN NGT MEDS + AMPLE H2O. PT CALM. HILARY HUDDLESTON, BROUGHT GT FEEDING MACHINE (PUMP). CURRENTLY, PUMP AND BAG AT BEDSIDE. AWAITING OSMOLITE 1.5 TO ARRIVE ON UNIT.
[2022-11-13] MEDS: IPRATROPIUM 0.02% 0.5 MG/2.5 ML NEBU INH SCH ×3 (17:06→19:03)
[2022-11-13] MEDS: ALBUTEROL 0.083% 2.5 MG/3 ML NEBU INH SCH ×3 (17:07→19:03)
--- NOTE | 2022-11-13 22:44 | NUR ---
Patient in bed. No acute distress noted. Turned repositioned q2. HOB elevated. Will continue to monitor.
[2022-11-14] VITALS (7 sets, daily range): BP systolic 98–125; BP diastolic 51–65
[2022-11-14] MEDS: BLOOD GLUCOSE MONITORING 1 DEV DEV FS SCH ×4 (00:07→18:03)
[2022-11-14] MEDS: IPRATROPIUM 0.02% 0.5 MG/2.5 ML NEBU INH SCH ×3 (01:08→14:24)
[2022-11-14] MEDS: ALBUTEROL 0.083% 2.5 MG/3 ML NEBU INH SCH ×3 (01:08→14:24)
[2022-11-14] MEDS: MIDODRINE 5 MG TAB PO SCH ×3 (07:00→18:13)
--- NOTE | 2022-11-14 08:16 | NUR ---
PATIENT REFUSED HHN THERAPY AT THIS TIME "WANTS TO SLEEP"; WILL ACCEPT AT A LATER TIME; NO DISTRESS NOTED
[2022-11-14] MEDS: PANTOPRAZOLE 40 MG INJ VIAL IVP SCH (09:35)
[2022-11-14] MEDS: DOCUSATE 100 MG/10 ML UDC PO SCH ×2 (09:36→21:00)
[2022-11-14] MEDS: LACTULOSE 20 GM/30 ML UDC PO SCH ×3 (09:43→18:03)
--- NOTE | 2022-11-14 09:46 | NUR ---
pt needs BMP and Mg labs. Will hold KCl20% 40mEq/15mL and Mag-Ox until lab results.
[2022-11-14] MEDS: POTASSIUM CHLORIDE 20% 40 MEQ/15 ML UDC PO SCH (09:59)
[2022-11-14] MEDS: MAGNESIUM OXIDE 400 MG TAB PO SCH (09:59)
--- NOTE | 2022-11-14 10:12 | NUR ---
KCl and Mag-Ox given.
[2022-11-14 10:27] LABS: ALBUMIN 1.3 g/dL (3.4-5.0); ANION GAP 11.3 (8-16); CARBON DIOXIDE 21.7 mmol/L (21-32); CREATININE 0.8 mg/dL (0.6-1.3); TOTAL BILIRUBIN 5.6 mg/dL (0.0-1.0)
[2022-11-14 10:29] LABS: BASOPHILS % (AUTO) 0.8 % (0.0-2.0); EOSINOPHILS # (AUTO) 0.1 K/uL (0-0.4); EOSINOPHILS % (AUTO) 2.4 % (0.0-4.0); HEMATOCRIT 25.5 % (36-52); HEMOGLOBIN 8.3 g/dL (12.0-18.0); LYMPHOCYTES # (AUTO) 0.7 K/uL (2.0-11.5); LYMPHOCYTES % (AUTO) 18.8 % (20.5-51.1); MEAN CORPUSCULAR HEMOGLOBIN 28 pg (27-31); MEAN CORPUSCULAR HGB CONC 33 g/dL (33-37); MEAN CORPUSCULAR VOLUME 85.9 fL (80-94); MONOCYTES # (AUTO) 0.5 K/uL (0.8-1.0); MONOCYTES % (AUTO) 13.9 % (1.7-9.3); NEUTROPHILS # (AUTO) 2.4 K/uL (1.8-7.7); NEUTROPHILS % (AUTO) 64.1 % (42.2-75.2); PLATELET COUNT (AUTO) 101 K/uL (140-450); RED BLOOD CELL COUNT(AUTO) 2.96 MIL/uL (4.20-6.10); RED CELL DISTRIBUTION WIDTH 24.2 % (11.6-13.7); WHITE BLOOD COUNT (AUTO) 3.8 K/uL (4.8-10.8)
[2022-11-14] MEDS: THERAHONEY GEL 42.5 GM TP SCH (13:00)
--- NOTE | 2022-11-14 13:24 | NUR ---
Noc nurse changed dressing at 0600, honey applied. dressing clean dry intact. Will evaluate at end of shift.
--- NOTE | 2022-11-14 19:19 | NUR ---
11/14/22 RD FOLLOW UP COMPLETED.PLEASE REFER TO NUTRITION ASSESSMENT UNDER CARE ACTIVITY FOR ESTIMATED NUTRITIONAL NEEDS. 1.CONTINUE WITH OSMOLITE 1.5 @ 50 ML/HR; FWF 150 ML Q6H; JOSIAH BID (PROVIDES 160 KCAL AND 5 GM PROTEIN DAILY). THIS PROVIDES 1200 ML TOTAL VOLUME, 1960 KCAL, 80 GM PROTEIN AND 1514 ML FREE WATER DAILY MEETING 100% ESTIMATED KCAL NEEDS AND 96% ESTIMATED PROTEIN NEEDS; ADEQUATE. 2. WHEN/IF MEDICALLY APPROPRIATE, RECOMMEND CCHO 60 GRAM DIET WITH TEXTURE MODIFICATION PER ST SWALLOW EVAL RECOMMENDATIONS -CONTINUE WITH JOSIAH BID TO PROMOTE WOUND HEALING (PROVIDES 160 KCAL AND 5 GM PROTEIN DAILY) 3. RD TO FOLLOW-UP IN 2-3 DAYS PATIENT IS HIGH RISK. JONEL JEFFERY RD
--- NOTE | 2022-11-14 20:21 | NUR ---
PT WAS SOUND ASLEEP AND WOULD NOT BE WOKEN UP. nO RESPIRATORY DISTRESS WAS NOTED. pT WAS NOT GIVEN 1900 TXN. WILL MONITOR PT AND SEE IF HE WANTS TXN LATER.
[2022-11-14] MEDS: RIFAXIMIN 550 MG TAB PO SCH (20:59)
[2022-11-15] VITALS (7 sets, daily range): BP systolic 95–106; BP diastolic 49–65
[2022-11-15] MEDS: BLOOD GLUCOSE MONITORING 1 DEV DEV FS SCH ×4 (06:24→18:21)
[2022-11-15] MEDS: MIDODRINE 5 MG TAB PO SCH ×3 (06:27→18:22)
[2022-11-15] MEDS: IPRATROPIUM 0.02% 0.5 MG/2.5 ML NEBU INH SCH ×2 (07:56→13:25)
[2022-11-15] MEDS: ALBUTEROL 0.083% 2.5 MG/3 ML NEBU INH SCH ×2 (07:56→13:25)
[2022-11-15] MEDS: DOCUSATE 100 MG/10 ML UDC PO SCH ×2 (09:22→21:20)
[2022-11-15] MEDS: LACTULOSE 20 GM/30 ML UDC PO SCH ×3 (09:22→16:41)
[2022-11-15] MEDS: PANTOPRAZOLE 40 MG INJ VIAL IVP SCH (09:22)
[2022-11-15] MEDS: RIFAXIMIN 550 MG TAB PO SCH ×2 (09:23→21:21)
[2022-11-15] MEDS: MAGNESIUM OXIDE 400 MG TAB PO SCH (09:23)
[2022-11-15] MEDS: POTASSIUM CHLORIDE 20% 40 MEQ/15 ML UDC PO SCH (09:25)
--- NOTE | 2022-11-15 11:46 | NUR ---
DC PLANNING: CM CALLED [facility] TRANSFER [place] SPOKE WITH CHRISTIANE REGARDING THE STABLE FOR TRANSFER PER CHRISTIANE TO FAX THE LATEST CLINICALS AND WILL REVIEW. FAXED TO [phone]. [facility]ED [facility] SPOKE WITH YUMIKO NOTIFIED HER THAT PATIENT IS READY TO BE DISCHARGED TO SNF. FAXED THE CLINICALS TO [facility]. CM TO FOLLOW Addendum: 11/16/22 at 0919 by Karen Gallardo RN DC PLANNING: CALLED [facility] SPOKE WITH MORAIMA STATED THEY DON'T HAVE ANY BED. CALLED [facility] SPOKE WITH YUMIKO STATED THEY HAVE TO MAKE SURE HE HAS A PLACE FOR DC AFTER THE SNF. CM GAVE THE MANAGING PARTNER SUSAN VERAS FOR DC PLAN. CM TO FOLLOW Addendum: 11/16/22 at 1246 by Karen Gallardo RN DC PLANNING: PATIENT IS LETHARGIC AMMONIA LEVEL 158, UNABLE TO DISCHARGE PATIENT TO SNF. CM CALLED PT'S SISTER DORA [phone] DISCUSSED THE DC PLAN AFTER SNF. PER DORA NEEDS TO TALK TO MD REGARDING THE PROGNOSIS OF HIS HEALTH AND CONSIDER HOSPICE . WILL NOTIFY DR GUAN. MARILEE TO FOLLOW
[2022-11-15] MEDS: THERAHONEY GEL 42.5 GM TP SCH (13:41)
--- NOTE | 2022-11-15 18:33 | NUR ---
OUTCOME SUMMARY NGT REMOVED INADVERTENTLY, PASSED SWALLOW EVALUATION. DIET [facility]GRAD[facility] SOFT, NECTAR THICK. FC INTACT, BOWEL MOVEMENT X2. TURNED Q2. ALL NEEDS MET, SAFETY AND COMFORT MEASURES MAINTAINED, CALL LIGHT WITHIN REACH.
[2022-11-16] VITALS: BP 100/61
[2022-11-16 04:00] VITALS: BP 98/60
[2022-11-16] MEDS ORDERED: AMMONIA AROMATIC 1 INHL INH ONE (06:00)
[2022-11-16] MEDS: BLOOD GLUCOSE MONITORING 1 DEV DEV FS SCH ×4 (06:16→17:34)
[2022-11-16] MEDS: MIDODRINE 5 MG TAB PO SCH ×3 (06:32→18:10)
--- NOTE | 2022-11-16 07:25 | NUR ---
RECEIVED PT FOR CONTINUITY OF CARE. PT IN BED SLEEPING. VISIBLE CHEST RISE/FALL. RESPIRATIONS EVEN AND UNLABORED ON RA. PICC LINE DOUBLE ON LOR DOUBLE LUMEN, SALINE LOCK. ON TELE MONITOR. MASTERS IN PLACE AND DRAINING TO GRAVITY. NO DISTRESS NOTED. ALL SAFETY PRECAUTIONS IN PLACE.
[2022-11-16 08:00] VITALS: BP 100/58
--- NOTE | 2022-11-16 08:00 | NUR ---
Patient's Plan of Care was discussed and reviewed with SET RIDER: PERICO
[2022-11-16] MEDS: POTASSIUM CHLORIDE 20% 40 MEQ/15 ML UDC PO SCH ×2 (09:00→13:10)
[2022-11-16] MEDS: LACTULOSE 20 GM/30 ML UDC PO SCH ×3 (09:00→17:22)
[2022-11-16] MEDS: MAGNESIUM OXIDE 400 MG TAB PO SCH ×2 (09:00→12:58)
[2022-11-16] MEDS: DOCUSATE 100 MG/10 ML UDC PO SCH ×3 (09:00→21:04)
[2022-11-16] MEDS: RIFAXIMIN 550 MG TAB PO SCH ×3 (09:00→21:05)
--- NOTE | 2022-11-16 09:10 | NUR ---
PER DR GUAN "NO NEED FOR LABS TO BE DRAWN TODAY PLAN TO DC SOON"
--- NOTE | 2022-11-16 09:50 | NUR ---
TIME FOR MORNING MED ADMINISTRATION. PT SLEEPING. UNAROUSABLE TO SOUND. ONLY AROUSABLE TO PAINFUL STIMULI.
--- NOTE | 2022-11-16 10:17 | NUR ---
INFORMED DR GUAN REGARDING CHANGE IN CONDITION. BP 103/59, MAP 76, O2 SATURATING 98% ON RA, HR 91. SINUS RHYTHM ON TELE MONITOR. BLOOD SUGAR 112. PATIENT ONLY REACTING TO PAINFUL STIMULI. AWAITING RESPONSE.
[2022-11-16] MEDS: PANTOPRAZOLE 40 MG INJ VIAL IVP SCH (10:18)
--- NOTE | 2022-11-16 11:07 | NUR ---
ORDER NGT PLACEMENT
--- NOTE | 2022-11-16 11:15 | NUR ---
OBTAINED ABG SAMPLE FROM PT. BUT THE SAMPLE WAS MIXED WITH PT EREMITES FLUID IN ARM AND SAMPLE COULDN'T BE RAN. RN WAS NOTIFIED AND WILL REACH OUT TO DR TO SEE IF HE WANTS TO TRY AGAIN. WILL CONTINUE TO MONITOR
--- NOTE | 2022-11-16 11:35 | NUR ---
PT TAKEN BY Chumen Wenwen TO RADIOLOGY
--- NOTE | 2022-11-16 11:51 | NUR ---
PT RETURNED TO UNIT
[2022-11-16 12:00] VITALS: BP 94/61
--- NOTE | 2022-11-16 12:16 | NUR ---
PER REAL TIME OPERATOR, NGT IN CORRECT PLACE. Addendum: 11/16/22 at 1534 by Kera Moraes LVN PER REAL TIME OPERATOR, NGT IN CORRECT PLACE ON CHEST XRAY.
[2022-11-16 12:26] LABS: BASOPHILS % (AUTO) 0.3 % (0.0-2.0); EOSINOPHILS # (AUTO) 0.1 K/uL (0-0.4); EOSINOPHILS % (AUTO) 1.3 % (0.0-4.0); HEMATOCRIT 30.7 % (36-52); HEMOGLOBIN 9.9 g/dL (12.0-18.0); LYMPHOCYTES # (AUTO) 1.2 K/uL (2.0-11.5); MEAN CORPUSCULAR HEMOGLOBIN 28 pg (27-31); MEAN CORPUSCULAR HGB CONC 32 g/dL (33-37); MONOCYTES # (AUTO) 0.7 K/uL (0.8-1.0); NEUTROPHILS # (AUTO) 3.1 K/uL (1.8-7.7); NEUTROPHILS % (AUTO) 61.4 % (42.2-75.2); PLATELET COUNT (AUTO) 100 K/uL (140-450); RED BLOOD CELL COUNT(AUTO) 3.57 MIL/uL (4.20-6.10); WHITE BLOOD COUNT (AUTO) 5.1 K/uL (4.8-10.8)
--- NOTE | 2022-11-16 12:34 | NUR ---
PHYSICAL THERAPY NOTE: AT THE TIME OF THE ATTEMPT, Pt WAS UNRESPONSIVE AND DEEMED INAPPROPRIATE FOR TREATMENT. RN DID NOT PROVIDE MEDICAL CLEARANCE. WILL FOLLOW UP NEXT SESSION. Addendum: 11/16/22 at 1606 by Lety Berry PT PHYSICAL THERAPY CO-SIGN The Physical Therapy Progress Notes documented by Clinical Technologist have been reviewed. Reviewed/Co-Signed by: Lety Berry PT Documentation Done by:MARIA ESTHER BRYAN PTA
[2022-11-16 12:42] LABS: ALBUMIN 1.3 g/dL (3.4-5.0); ANION GAP 11.6 (8-16); CARBON DIOXIDE 22.7 mmol/L (21-32); CREATININE 0.9 mg/dL (0.6-1.3); POTASSIUM 5.3 mmol/L (3.5-5.1); TOTAL BILIRUBIN 6.3 mg/dL (0.0-1.0)
[2022-11-16] MEDS: THERAHONEY GEL 42.5 GM TP SCH (12:47)
--- NOTE | 2022-11-16 13:10 | NUR ---
ALL SCHEDULED MEDICATIONS GIVEN PER NGT.
--- NOTE | 2022-11-16 14:42 | NUR ---
11/16/22 FOLLOW UP COMPLETED PLEASE REFER TO NUTRITION ASSESSMENT UNDER CARE ACTIVITY FOR ESTIMATED NUTRITIONAL NEEDS. 1. CONTINUE [id number], MECHANICAL SOFT, NECTAR THICK LIQUID DIET WITH JOSIAH BID FOR WOUND SUPPORT TOLERATED - JOSIAH BID PROVIDES 160 KCAL AND 5 GM PROTEIN DAILY 2. IF TUBE FEEDING READY TO BE INITIATED, RECOMMEND OSMOLITE 1.5 @ 50 ML/HR GOAL RATE; FWF 150 ML Q4H; JOSIAH BID - WITH JOSIAH BID (PROVIDES 160 KCAL AND 5 GM PROTEIN DAILY), THIS PROVIDES 1200 ML TOTAL VOLUME, 1960 KCAL, 80 GM PROTEIN AND 1814 ML FREE WATER DAILY MEETING 100% ESTIMATED KCAL NEEDS AND 96% ESTIMATED PROTEIN NEEDS; ADEQUATE. 3. MONITOR PO INTAKE AND NUTRITION RELATED LAB VALUES 4. RD TO FOLLOW-UP 2-3 DAYS, HIGH RISK REVIEWED BY MARVA OSORIO RD
[2022-11-16 16:00] VITALS: BP 90/44
--- NOTE | 2022-11-16 17:22 | NUR ---
SCHEDULED LACTULOSE GIVEN VIA NGT.
--- NOTE | 2022-11-16 17:34 | NUR ---
BS CHECKED-109. NO COVERAGE NEEDED.
--- NOTE | 2022-11-16 19:25 | NUR ---
ENDORSED PT TO GENERAL SERVICE TECHNICIAN NURSE FOR CONTINUITY OF CARE.
--- NOTE | 2022-11-16 19:51 | NUR ---
PT WAS DESATURATING ON ROOM AIR, PLACED PT ON NC 6L. PT SPO2 INCREASED TO 99%, WILL CONT TO MONITOR. Addendum: 11/16/22 at 2255 by TYLER TANG RT FOLLOW-UP: PT IS MAINTAINING SPO2 OF 98% ON 6L NC
[2022-11-16 20:00] VITALS: BP 90/51
[2022-11-17] VITALS: BP 93/46
[2022-11-17 04:00] VITALS: BP 112/48
--- NOTE | 2022-11-17 04:16 | NUR ---
0335 Am chas done. Pt had been on very lethargic . Pt cleaned, bed linens changed. Pt having very slow/agonal respiration. Rapid response called at 0416 . Team arrived and started attending to pt. 80mg of lasix administered pr MD order. 0437 Pt was successfully intubated while baging pt using ambu bag.Pt became pulse less almost immediately after intubation . 0449 CODE was called.Pt was coded untill 0511 when pt was transfered to ICU.Immediately pt was hooked up to Bedside monitored, pt was pulseless and Code was call again at 0522. At 0530, Code was called off and pt was pronounced . Family was called. I spoke to son who gave pt,s sister's number . Sister was called to let her know about the change in pt's condition.
[2022-11-17] MEDS ORDERED: FUROSEMIDE 40 MG/4 ML VIAL IVP ONE (04:21)
[2022-11-17] MEDS ORDERED: FUROSEMIDE 40 MG/4 ML VIAL IVP SCH (04:25)
--- NOTE | 2022-11-17 05:20 | NUR ---
RECEIVED PT. FROM TELEMETRY UNIT, DRYING OVEN TENDER 1X AND CODED 2X IN TELEMETRY. DR. PORTER ORDERED TO TAO PT. TO ICU. UPON POST CODED, MOVED THE PT. VIA BED WITH THE MEDICAL TEAM TO ICU. PT. ARRIVED IN ICU AT 0520 AND UPON PLACED ON THE ICU MONITOR HR WENT DOWN TO 40 TO ASYSTOLE. CALLED FOR THE CODE AT 0522. MEDICAL TEAM AT THE BEDSIDE AND DR. PORTER LEAD THE CODE IN ICU. PT. AT 0530. PRIMARY NURSE GRETEL IN TELEMETRY UNIT GAVE ME REPORT AT 0540.
[2022-11-17] MEDS: BLOOD GLUCOSE MONITORING 1 DEV DEV FS SCH ×2 (06:00)
--- NOTE | 2022-11-17 06:03 | NUR ---
HILARY MAJANO FROM TELEMETRY CALLED ARACELI, THE SON. ACCORDING TO GRETEL, THE SON TOLD HER TO CALL THE SISTER OF THE PT. DORA BECAUSE SHE IS THE POWER OF PHOTOVOLTAIC TECHNICIAN. GRETEL CALLED DORA AND DORA STATED THAT THEY DON'T HAVE A MORTUARY. HEALTHCARE INTERPRETER TALKED TO HER AND PROVIDED HER WITH [employer] PHONE NUMBER.
--- NOTE | 2022-11-17 06:13 | NUR ---
DORA, PT. SISTER CALLED AND STATED THAT SHE CALLED THE [employer] AND LEFT A MESSAGE.
--- NOTE | 2022-11-17 06:15 | NUR ---
DORA, PT. SISTER CALLED AGAIN AND SAID THAT [facility] HOWEVER, NO TIME SHE PROVIDED FOR PICK-UP SINCE SHE DOESN'T KNOW.THE MORTUARY DIDN'T GIVE HER THE TIME.
--- NOTE | 2022-11-17 06:40 | NUR ---
CALLED [facility], TALKED TO RACHEAL AND SHE STATED THAT A COORDINATOR WILL CALL BACK TO FOLLOW-UP. SHE GAVE REFERRAL # [phone].
[2022-11-17] MEDS: MIDODRINE 5 MG TAB PO SCH (07:00)
--- NOTE | 2022-11-17 07:04 | NUR ---
RYLEY FROM [facility] CALLED AND ASKED A LOT OF QUESTIONS ABOUT PT. HISTORY AND PHYSICAL. RYLEY CALLED AT [phone] AND WE ENDED UP WITH THE CALL CONVERSATION AT 0730. RYLEY STATED THAT THEY WILL CALL AGAIN IN ABOUT AN HOUR FOR FOLLOW-UP.WILL ENDORSE TO THE NEXT SHIFT.
[2022-11-17 10:07] LABS: HEPATITIS A ANTIBODY IGM Negative (Negative); HEPATITIS B CORE AB TOTAL Negative (Negative); HEPATITIS B SURFACE ANTIBODY Non Reactive (.); HEPATITIS B SURFACE ANTIGEN Negative (Negative)
== END 2022-11-17 15:15 | DRG 870 ==
LOC: MED 12:09 → MTU 14:57 → MIC 10-29 20:22 → MTU 11-08 15:39 → MIC 11-10 08:55 → MTU 11-12 03:25 → MIC 11-17 05:16
PROC: 5A09457 Assistance with Respiratory Ventilation, 24-96 Consecutive Hours, Continuous Positive Airway Pressure (ICD-10-PCS; 2022-10-08)
PROC: 0W993ZZ Drainage of Right Pleural Cavity, Percutaneous Approach (ICD-10-PCS; 2022-10-11)
PROC: 0W9B3ZZ Drainage of Left Pleural Cavity, Percutaneous Approach (ICD-10-PCS; 2022-10-13)
PROC: 0W9G30Z Drainage of Peritoneal Cavity with Drainage Device, Percutaneous Approach (ICD-10-PCS; 2022-10-14)
PROC: 5A1955Z Respiratory Ventilation, Greater than 96 Consecutive Hours (ICD-10-PCS; principal; 2022-10-29)
PROC: 0BH17EZ Insertion of Endotracheal Airway into Trachea, Via Natural or Artificial Opening (ICD-10-PCS; 2022-10-29)
PROC: 5A0935A Assistance with Respiratory Ventilation, Less than 24 Consecutive Hours, High Flow/Velocity Cannula (ICD-10-PCS; 2022-11-05)
PROC: 02HV33Z Insertion of Infusion Device into Superior Vena Cava, Percutaneous Approach (ICD-10-PCS; 2022-11-10)
DX: A41.9 Sepsis, unspecified organism (principal); J18.9 Pneumonia, unspecified organism; E43 Unspecified severe protein-calorie malnutrition; J96.21 Acute and chronic respiratory failure with hypoxia; I50.33 Acute on chronic diastolic (congestive) heart failure; I21.A1 Myocardial infarction type 2; G93.41 Metabolic encephalopathy; E87.20 Acidosis, unspecified; J90 Pleural effusion, not elsewhere classified; J44.1 Chronic obstructive pulmonary disease with (acute) exacerbation; J44.0 Chronic obstructive pulmonary disease with (acute) lower respiratory infection; J81.1 Chronic pulmonary edema; D63.8 Anemia in other chronic diseases classified elsewhere; E87.6 Hypokalemia; I11.0 Hypertensive heart disease with heart failure; E83.42 Hypomagnesemia; E83.39 Other disorders of phosphorus metabolism; K70.31 Alcoholic cirrhosis of liver with ascites; I35.0 Nonrheumatic aortic (valve) stenosis; Z20.822 Contact with and (suspected) exposure to COVID-19; D69.6 Thrombocytopenia, unspecified; Z68.25 Body mass index [BMI] 25.0-25.9, adult; E11.65 Type 2 diabetes mellitus with hyperglycemia; D72.819 Decreased white blood cell count, unspecified; K76.81 Hepatopulmonary syndrome; K76.82 Hepatic encephalopathy; Z99.81 Dependence on supplemental oxygen
CPT/HCPCS: 31500; 36415; 36600; 49083; 51702; 70450; 71045; 71275; 76604; 76705; 76942; 80048; 80053; 80305; 81001; 82140; 82150; 82803; 82948; 83036; 83605; 83690; 83735; 83880; 84100; 84439; 84443; 84484; 85025; 85610; 85730; 86704; 86706; 86708; 86709; 86803; 87040; 87070; 87081; 87086; 87205; 87340; 88305; 88313; 88342; 89220; 92526; 92950; 93925; 93930; 93970; 93971; 94002; 94003; 94010; 94640; 94660; 94761; 96365; 96375; 97110; 97112; 97116; 97163-GP; 97530; 99285; 99291; C9113; J0696; J1815; J1885; J1940; J2001; J2405; J2543; J2704; J2920; J2930; J3475; J3480; J3490; J7030; J7060; J7613; J7644; P9046; Q0092; Q9967